=== PATIENT | male | born 1955 | race Caucasian/White ===

== ENCOUNTER → 2017-07-19 12:51 | Outpatient (CLI) | payer MEDICARE ==
[2014-09-07 12:55] VITALS: BMI 54.0
[~2017-07-19 12:51] MED LIST: AMBIEN10 MG PO; CIALIS5 MG PO; COREG 3.1253.125 MG PO; FEXOFENADINE H180 MG PO; FISH OIL 1,0001 CA1 PO; FLOMAX0.4 MG PO; HYDROCODONE-APA1 TAB PO; LASIX20 MG PO; LEVAQUIN500 MG PO; MOBIC7.5 MG PO; MULTI-DAY VITAM1 TAB PO; PRINIVIL20 MG PO; SINGULAIR10 MG PO; VITAMIN E400 UNI2 PO; ZANAFLEX4 MG PO
== END | disposition home or self-care (01) ==
LOC: D.RT 07-02 11:00
DX: R06.02 Shortness of breath (principal)

== ENCOUNTER 2018-09-09 16:14 | Inpatient (IN) | payer OTHER ==
[~2018-09-09] VITALS: Ht 188 cm; Wt 204.1 kg
[2018-09-09 17:09] LABS: BASOPHILS 0.2 % (0-2); EOSINOPHILS 2.9 % (0-7); HEMATOCRIT 44.1 % (42.0-54.0); HEMOGLOBIN 14.8 g/dL (13.5-17.5); IMMATURE GRANULOCYTES 0.2 % (0-5); LYMPHOCYTES 23.3 % (15-50); MCH 31.5 pg (26.0-34.0); MCHC 33.6 g/dL (31.0-37.0); MCV 93.8 fL (80.0-100.0); MEAN PLATELET VOLUME 9.7 fL (7.4-10.4); MONOCYTES 6.8 % (2-11); NEUTROPHILS 66.6 % (40-80); PLATELET COUNT 224 10x3/uL (130-400); RDW 16.2 % (11.5-14.5); WBC 5.9 10x3/uL (4.8-10.8)
[2018-09-09 17:18] LABS: INR 1.08 (0.85-1.17); PROTIME 13.6 SECONDS (11.6-15.0)
[2018-09-09 17:26] LABS: ALBUMIN 2.9 g/dL (3.4-5.0); ANION GAP 13.1 mmol/L (8-16); BILIRUBIN - TOTAL 0.96 mg/dL (0.2-1.3); CALCIUM 8.6 mg/dL (8.5-10.1); CARBON DIOXIDE 27.9 mmol/L (21.0-32.0); CREATININE - SERUM 1.1 mg/dL (0.6-1.3); PROTEIN - SERUM 6.8 g/dL (6.4-8.2)
[2018-09-09 21:28] LABS: CKMB 0.6 U/L (0.0-3.6)
[2018-09-09 22:06] VITALS: BP 141/59
[2018-09-10] MEDS ORDERED: BAYER CHEWABLE81 MG PO (00:04)
[2018-09-10 03:05] VITALS: BP 138/55
[2018-09-10 04:18] VITALS: BP 123/57
[2018-09-10 05:46] LABS: BASOPHILS 0 % (0-2); EOSINOPHILS 0.2 % (0-7); HEMATOCRIT 44.5 % (42.0-54.0); HEMOGLOBIN 14.7 g/dL (13.5-17.5); IMMATURE GRANULOCYTES 0.2 % (0-5); LYMPHOCYTES 9.3 % (15-50); MCH 31.3 pg (26.0-34.0); MCV 94.7 fL (80.0-100.0); MEAN PLATELET VOLUME 10.2 fL (7.4-10.4); MONOCYTES 0.5 % (2-11); NEUTROPHILS 89.8 % (40-80); PLATELET COUNT 214 10x3/uL (130-400); RDW 16.3 % (11.5-14.5); WBC 5.5 10x3/uL (4.8-10.8)
[2018-09-10 06:02] LABS: ALBUMIN 2.6 g/dL (3.4-5.0); ALKALINE PHOSPHATASE 50 U/L (46-116); ALT (SGPT) 66 U/L (10-68); BILIRUBIN - TOTAL 0.99 mg/dL (0.2-1.3); CALC OSMOLALITY 284 mosm/kg (275-300); CALCIUM 8.6 mg/dL (8.5-10.1); CHLORIDE - SERUM 106 mmol/L (98-107); PROTEIN - SERUM 6.5 g/dL (6.4-8.2); SODIUM 140 mmol/L (136-145); UREA NITROGEN 13 mg/dL (7-18); eGFR NON AFRICAN AMERICAN 80 mL/min (90-120)
[2018-09-10 06:07] LABS: GLUCOSE 203 mg/dL (74-106); POTASSIUM - SERUM 4.6 mmol/L (3.5-5.1)
[2018-09-10] MEDS ORDERED: NEURONTIN 300300 MG PO (08:08)
[2018-09-10] MEDS ORDERED: FLUTICASONE PRO16 GM NASAL (08:08)
[2018-09-10] MEDS ORDERED: TESSALON PERLE100 MG PO (08:09)
[2018-09-10] MEDS ORDERED: COMBIVENT RESPIM4 GM INH (08:09)
[2018-09-10] MEDS ORDERED: PROVENTIL/2.5 MG/3 M INH (08:10)
[2018-09-10] MEDS ORDERED: MIRALAX17 GM PO (08:31)
[2018-09-10] MEDS ORDERED: LOVENOX INJ100 MG/ML SC (12:26)
[2018-09-10] MEDS ORDERED: ZOSYN 3.3753.375 G1 IV (12:26)
[2018-09-10] MEDS ORDERED: VANCOMYCIN 1 GM/1 G1 IV (12:26)
[2018-09-10] MEDS ORDERED: MUCINEX600 MG PO (12:27)
[2018-09-10] MEDS ORDERED: FLORAJEN3 CAPS460 MG PO (12:27)
[2018-09-10] MEDS ORDERED: SOLU MEDROL IV (12:27)
[2018-09-10 13:14] VITALS: Ht 188 cm; Wt 204.1 kg
[2018-09-10 15:46] VITALS: BP 135/48
== END 2018-09-10 12:33 | disposition short-term general hospital (02) | DRG 393 ==
LOC: D.ER 16:14 → D.EDHOLD 23:53
PROVIDERS: Family Medicine
DX: K42.9 Umbilical hernia without obstruction or gangrene (principal); J18.9 Pneumonia, unspecified organism; J96.21 Acute and chronic respiratory failure with hypoxia; J90 Pleural effusion, not elsewhere classified; J44.0 Chronic obstructive pulmonary disease with (acute) lower respiratory infection; Z68.43 Body mass index [BMI] 50.0-59.9, adult; I10 Essential (primary) hypertension; Z99.81 Dependence on supplemental oxygen; N40.0 Benign prostatic hyperplasia without lower urinary tract symptoms; F32.9 Major depressive disorder, single episode, unspecified; F41.9 Anxiety disorder, unspecified; G47.33 Obstructive sleep apnea (adult) (pediatric); E66.01 Morbid (severe) obesity due to excess calories; Z87.891 Personal history of nicotine dependence

== ENCOUNTER 2020-05-30 12:07 | Inpatient (IN) | payer MEDICARE ==
[~2020-05-30] VITALS: Ht 190.5 cm; Wt 207.7 kg
[~2020-05-30 12:07] MED LIST changes: +BAYER CHEWABLE81 MG PO; +COMBIVENT RESPIM4 GM INH; +FLORAJEN3 CAPS460 MG PO; +FLUTICASONE PRO16 GM NASAL; +LOVENOX INJ100 MG/ML SC; +MIRALAX17 GM PO; +MUCINEX600 MG PO; +NEURONTIN 300300 MG PO; +PROVENTIL/2.5 MG/3 M INH; +SOLU MEDROL IV; +TESSALON PERLE100 MG PO; +VANCOMYCIN 1 GM/1 G1 IV; +ZOSYN 3.3753.375 G1 IV
[2020-05-30 12:35] LABS: BASOPHILS 0.3 % (0-2); EOSINOPHILS 5.2 % (0-7); HEMATOCRIT 41.1 % (42.0-54.0); HEMOGLOBIN 13.3 g/dL (13.5-17.5); IMMATURE GRANULOCYTES 0.3 % (0-5); LYMPHOCYTES 16.8 % (15-50); MCH 30.4 pg (26.0-34.0); MCHC 32.4 g/dL (31.0-37.0); MCV 94.1 fL (80.0-100.0); MEAN PLATELET VOLUME 9.1 fL (7.4-10.4); MONOCYTES 8.3 % (2-11); NEUTROPHILS 69.1 % (40-80); RBC 4.37 10x6/uL (4.20-6.10); RDW 15.2 % (11.5-14.5); WBC 6.9 10x3/uL (4.8-10.8)
--- NOTE | 2020-05-30 12:36 | NUR ---
ULTRASOUND IN ROOM NOW
[2020-05-30 12:37] LABS: PLATELET COUNT 316 10x3/uL (130-400)
[2020-05-30 12:42] LABS: CALC OSMOLALITY 279 mosm/kg (275-300); CARBON DIOXIDE 27.9 mmol/L (21.0-32.0); CHLORIDE - SERUM 104 mmol/L (98-107); POTASSIUM - SERUM 4.1 mmol/L (3.5-5.1); SODIUM 139 mmol/L (136-145); UREA NITROGEN 16 mg/dL (7-18); eGFR NON AFRICAN AMERICAN 80 mL/min (90-120)
[2020-05-30 12:46] LABS: GLUCOSE 111 mg/dL (74-106)
[2020-05-30 12:50] LABS: ALKALINE PHOSPHATASE 90 U/L (30-120); ALT (SGPT) 46 U/L (10-68); BILIRUBIN - TOTAL 0.75 mg/dL (0.2-1.3); PROTEIN - SERUM 7.2 g/dL (6.4-8.2)
[2020-05-30 13:10] LABS: CKMB 0.6 U/L (0.0-3.6); CREATINE KINASE 46 UL (21-232); PRO BNP 394 pg/mL (0-125); TROPONIN-I 0.017 ng/mL (0.000-0.060)
[2020-05-30 13:11] VITALS: BP 116/69
[2020-05-30 13:12] LABS: APTT 32.9 SECONDS (22.8-39.4); INR 1.04 (0.85-1.17); PROTIME 13.5 SECONDS (11.6-15.0)
--- NOTE | 2020-05-30 13:13 | NUR ---
ERP INFORMED OF ELEVATED D-DIMER OF 13.36.
[2020-05-30 13:31] VITALS: BP 136/54
--- NOTE | 2020-05-30 16:28 | NUR ---
Rehab prescreening Consult recieved and the chart has been reviewed. He is [facility] and will require a preauth for the inpatient rehab. He will need a PT and an OT eval for their review. He is a new admit from the ER this afternoon. Rehab will follow. Veena Pinedo RN Clinical Liaison, Rehab
--- NOTE | 2020-05-30 18:42 | NUR ---
REFUSED SCD'S. LEFT LOWER LEG DVT. BILATERAL CELLULITIS.
--- NOTE | 2020-05-30 19:00 | NUR ---
EVENING ROUNDS COMPLETE. PT SITTING UP IN BED. NO SIGNS OF DISTRESS. PT DENIES ANY NEEDS AT THIS TIME. PT C/O PAIN 06/20, MORPHINE WAS ALREADY GIVEN BY DAY SHIFT NURSE. TEACHING ON PAIN MANAGEMENT. AAOX4, CL IN REACH, BED IN LOWEST POSITION.
--- NOTE | 2020-05-30 20:00 | NUR ---
DR. ALVES NOTIFIED AND REVIEWED PATIENT'S BEHAVIOR AND ASSESSMENT RESULTS. PT. IS A LOW RISK PER DR. ALVES. HE STATED TO GIVE RESOURCES TO PT AT TIME OF DISCHARGE. NO FURTHER ORDERS AT THIS TIME. RESOURCES REVIEWED WITH PT. AND HE VERBALIZED. UNDERSTANDING.
[2020-05-30 21:32] VITALS: BP 136/64
[2020-05-31 00:30] VITALS: BP 141/70
[2020-05-31] MEDS ORDERED: XANAX0.5 MG PO (02:09)
[2020-05-31] MEDS ORDERED: ULTRAM50 MG PO (02:10)
[2020-05-31] MEDS ORDERED: METOPROLOL TART50 MG PO (02:11)
[2020-05-31 02:18] VITALS: BMI 57.3
[2020-05-31 04:00] VITALS: BP 172/94
[2020-05-31 06:15] LABS: BASOPHILS 0.3 % (0-2); EOSINOPHILS 6.8 % (0-7); HEMATOCRIT 38.1 % (42.0-54.0); IMMATURE GRANULOCYTES 0.2 % (0-5); LYMPHOCYTES 18.5 % (15-50); MCH 29.9 pg (26.0-34.0); MCHC 31.5 g/dL (31.0-37.0); MONOCYTES 7.4 % (2-11); NEUTROPHILS 66.8 % (40-80); PLATELET COUNT 298 10x3/uL (130-400); RBC 4.01 10x6/uL (4.20-6.10); RDW 15.4 % (11.5-14.5); WBC 6.1 10x3/uL (4.8-10.8)
[2020-05-31 07:08] LABS: ALBUMIN 2.7 g/dL (3.4-5.0); ALKALINE PHOSPHATASE 80 U/L (30-120); ALT (SGPT) 41 U/L (10-68); BILIRUBIN - TOTAL 0.82 mg/dL (0.2-1.3); CALC OSMOLALITY 279 mosm/kg (275-300); CALCIUM 8.7 mg/dL (8.5-10.1); CARBON DIOXIDE 29.5 mmol/L (21.0-32.0); CHLORIDE - SERUM 103 mmol/L (98-107); GLUCOSE 137 mg/dL (74-106); POTASSIUM - SERUM 4.1 mmol/L (3.5-5.1); PROTEIN - SERUM 6.6 g/dL (6.4-8.2); SODIUM 138 mmol/L (136-145); UREA NITROGEN 19 mg/dL (7-18); eGFR NON AFRICAN AMERICAN 80 mL/min (90-120)
--- NOTE | 2020-05-31 08:00 | NUR ---
REPORT RECIEVED. PT SITTING SEMI FOWLERS IN BED. RR EVEN AND UNLABORED ON RA. PT HAS A L WRIST PIV THAT IS SL. BED LOCKED AND IN LOWEST POSITION, CALL LIGHT WITHIN REACH. WILL CTM
[2020-05-31 09:28] VITALS: BP 136/82
[2020-05-31 12:09] VITALS: BP 118/73
[2020-05-31 13:44] VITALS: Ht 190.5 cm; Wt 207.7 kg
--- NOTE | 2020-05-31 16:51 | NUR ---
I have reviewed this patient and I concur with the Shift Assessment completed by the Licensed Practical Nurse today this shift.
[2020-05-31 22:34] VITALS: BP 171/40
[2020-06-01 01:59] VITALS: BP 159/87
[2020-06-01 06:22] LABS: BASOPHILS 0.3 % (0-2); EOSINOPHILS 5.3 % (0-7); HEMATOCRIT 38.5 % (42.0-54.0); HEMOGLOBIN 11.8 g/dL (13.5-17.5); IMMATURE GRANULOCYTES 0.3 % (0-5); LYMPHOCYTES 15.6 % (15-50); MCH 29.5 pg (26.0-34.0); MCHC 30.6 g/dL (31.0-37.0); MCV 96.3 fL (80.0-100.0); MEAN PLATELET VOLUME 9.7 fL (7.4-10.4); MONOCYTES 7.2 % (2-11); NEUTROPHILS 71.3 % (40-80); PLATELET COUNT 328 10x3/uL (130-400); RDW 15.6 % (11.5-14.5); WBC 7.3 10x3/uL (4.8-10.8)
[2020-06-01 06:51] LABS: CALC OSMOLALITY 284 mosm/kg (275-300); CALCIUM 8.6 mg/dL (8.5-10.1); CHLORIDE - SERUM 104 mmol/L (98-107); CREATININE - SERUM 0.9 mg/dL (0.6-1.3); GLUCOSE 117 mg/dL (74-106); POTASSIUM - SERUM 4.3 mmol/L (3.5-5.1); SODIUM 141 mmol/L (136-145); UREA NITROGEN 20 mg/dL (7-18); eGFR NON AFRICAN AMERICAN 90 mL/min (90-120)
[2020-06-01 07:04] VITALS: BP 171/76
[2020-06-01 10:14] VITALS: BP 124/76
[2020-06-01] MEDS ORDERED: VIBRAMYCIN 100100 MG PO (12:30)
[2020-06-01] MEDS ORDERED: ELIQUIS5 MG PO (12:33)
--- NOTE | 2020-06-01 13:28 | MORECARE ---
CASE MANAGEMENT DISCHARGE SUMMARY PATIENT: JACKY BARILLAS UNIT: [id number] ADM DATE: 05/30/20 AGE: 65 : 56 SEX: M ROOM/BED: D.2140 AUTHOR: MELODIE ZUÑIGA PHYSICIAN: REFERRING PHYSICIAN: GUNNER GOODEN MD DATE OF SERVICE: 06/01/20 Discharge Plan Patient Name: JACKY BARILLAS Facility: [facility]:[place] : 1955 Planned Disposition: Anticipated Discharge Date: Discharge Date: Expected LOS: Initial Reviewer: [email or web address] Initial Review Date: 05/30/2020 Generated: 06/01/20 2:27 pm DCPIA - Discharge Planning Initial Assessment Updated by [email or web address]: Ariela Madera on 06/01/20 1:21 pm * Is the patient Alert and Oriented? Yes * How many steps to enter\exit or inside your home? RAMP * PCP DR SMITH * Pharmacy [facility] * Preadmission Environment Home with Family * ADLs Partial Dependent * Partial ADLs (Assistance needed) Ambulation * Equipment Bedside Commode CPAP Oxygen Rolling Walker Shower Chair * List name and contact numbers for known caregivers / representatives who currently or will assist patient after discharge: CANDIS BROWN [phone] * Verbal permission to speak to the caregivers and representatives has been obtained from the patient. Yes * Community resources currently utilized Home Health * Additional services required to return to the preadmission environment? Yes * Can the patient safely return to the preadmission environment? Yes * Has this patient been hospitalized within the prior 30 days at any hospital? No External Providers External Provider: [facility] Next Contact Date: Service Request Date: Service Type: Resolution: Reviewer: Comments: External Provider: [facility] Next Contact Date: Service Request Date: Service Type: Resolution: Reviewer: Comments: Patient Name: JACKY BARILLAS Page [phone] at 1328 All edits/amendments must be made on the electronic document DICTATION DATE: 06/01/20 1327 NETWORK CONTRACT MANAGER: NICCI 06/01/20 1327 RPT#: [id number] DC DATE: STATUS: ADM IN [facility] [address] [place] [address] END OF REPORT
--- NOTE | 2020-06-01 13:58 | MORECARE ---
CASE MANAGEMENT DISCHARGE SUMMARY PATIENT: JACKY BARILLAS UNIT: [id number] ADM DATE: 05/30/20 AGE: 65 : 57 SEX: M ROOM/BED: D.2140 AUTHOR: ZARA,DOC PHYSICIAN: REFERRING PHYSICIAN: GUNNER GOODEN MD DATE OF SERVICE: 06/01/20 Discharge Plan Patient Name: JACKY BARILLAS [facility] : 1955 Planned Disposition: Anticipated Discharge Date: Discharge Date: Expected LOS: Initial Reviewer: [email or web address] Initial Review Date: 05/30/2020 Generated: 06/01/20 2:58 pm Comments DCP- Discharge Planning Updated by [email or web address]: Ariela Madera on 06/01/20 12:[address] Patient Name: JACKY BARILLAS Admission Status: ER Accout number: [id number] Admission Date: 05-30-2020 : 1955 Admission Diagnosis:ACUTE EMBOLISM AND THOMBOS UNSP DEEP VEINS OF R LOW EXT Attending: LUIS GOODEN Current LOS: 2 Anticipated DC Date: Planned Disposition: Primary Insurance: [facility] MEDICARE SOLUTIONS Discharge Planning Comments: CM met with patient to complete initial dc planning assessment. CM educated patient on the CM role and verbal consent given by patient to complete assessment. CM verified patient's address, phone number, and emergency contact phone numbers. Patient lives at home with his Candis and his dtr. At discharge patient plans to return home and feels this is a safe discharge. CM discussed availability of home health, rehab services, and medical equipment. Pt currently has [facility]. CM spoke with Daquan at [phone] for resumption of care. CM faxed HH order and current PT evaluations. Pt states he has the following DME: rollator, shower chair, bedside commode; he has cpap and home o2 form [employer]. Pt would like to have a bariatric shower chair. CM spoke with Meggan from [email or web address] per request at [phone] and faxed referral. OSMIN signed for [facility], [facility], and [facility]; declined rehab. DC IMM delivered, explained, signed by the patient, and placed in chart. Signed form also left with the patient. Patient denied known discharge needs at this time. Transportation provider at discharge will be his . CM will continue to follow and will assist as needed with dc plans/needs. Fabric Separator Operator: Ariela Madera DCPIA - Discharge Planning Initial Assessment Updated by [id number]: Ariela Madera on 06/01/20 1:21 pm * Is the patient Alert and Oriented? Yes * How many steps to enter\exit or inside your home? RAMP * PCP DR SMITH * Pharmacy [facility] * Preadmission Environment Home with Family * ADLs Partial Dependent * Partial ADLs (Assistance needed) Ambulation * Equipment Bedside Commode CPAP Oxygen Rolling Walker Shower Chair * List name and contact numbers for known caregivers / representatives who currently or will assist patient after discharge: CANDIS BROWN [phone] * Verbal permission to speak to the caregivers and representatives has been obtained from the patient. Yes * Community resources currently utilized Home Health * Additional services required to return to the preadmission environment? Yes * Can the patient safely return to the preadmission environment? Yes * Has this patient been hospitalized within the prior 30 days at any hospital? No Coverage Notice Reviewer: [email or web address] Randall Madera Notice Issued Date-Time: 06/01/2020 11:45 Notice Type: IM Discharge Notice Notice Delivered To: Patient Relationship to Patient: Portable Pinch Riveter Name: Delivery Method: HAND - Hand Delivered Ailyn Days: Prior Verbal Notification: Recipient Understood Notice: Yes Recipient Signature: Yes Med Rec Note Co-signed by Attending: Coverage Notice Comment: DC IMM delivered, explained, signed by the patient, and placed in chart. Signed form also left with the patient. Reviewer: [id number] - Ariela Madera Notice Issued Date-Time: 06/01/2020 11:45 Notice Type: Patient Choice Letter Notice Delivered To: Patient Relationship to Patient: Portable Pinch Riveter Name: Delivery Method: HAND - Hand Delivered Ailyn Days: Prior Verbal Notification: Recipient Understood Notice: Yes Recipient Signature: Yes Med Rec Note Co-signed by Attending: Coverage Notice Comment: osmin for [facility], and resume [facility]. declination for ip rehab Last DP export: 06/01/20 12:28 p Patient Name: JACKY BARILLAS Page 15352 at 1358 All edits/amendments must be made on the electronic document DICTATION DATE: 06/01/20 1358 PROFESSIONAL GOLF TOURNAMENT PLAYER: NICCI 06/01/20 1358 RPT#: [id number] MS DATE: STATUS: ADM IN [facility] [address] [place] [address] END OF REPORT
--- NOTE | 2020-06-01 14:12 | NUR ---
DC PAPERWORK GONE OVER AND SIGNED WITH PT. ALL QUESTIONS ANSWERED. PIV REMOVED CATH TIP FULLY INTACT. TELEMETRY REMOVED AND RETURNED TO DIVISIONAL MERCHANDISING MANAGER. PT AWAITING HIS RIDE TO PICK HIM UP.
--- NOTE | 2020-06-01 14:33 | NUR ---
I have reviewed this patient and I concur with the Shift Assessment completed by the Licensed Practical Nurse today this shift.
--- NOTE | 2020-06-02 09:35 | MORECARE ---
CASE MANAGEMENT DISCHARGE SUMMARY PATIENT: JACKY BARILLAS UNIT: [id number] ADM DATE: 05/30/20 AGE: 65 : 57 SEX: M ROOM/BED: D.2140 AUTHOR: ZARA,DOC PHYSICIAN: REFERRING PHYSICIAN: GUNNER GOODEN MD DATE OF SERVICE: 06/02/20 Discharge Plan Patient Name: JACKY BARILLAS [facility] [facility] 1955 Planned Disposition: Anticipated Discharge Date: Discharge Date: 06/01/2020 Expected LOS: Initial Reviewer: [email or web address] Initial Review Date: 05/30/2020 Generated: 06/02/20 10:34 am Comments DCP- Discharge Planning Updated by [id number]: Ariela Madera on 06/01/20 12:[address] Patient Name: JACKY BARILLAS Admission Status: ER Accout number: [id number] Admission Date: 05-30-2020 : 1955 Admission Diagnosis:ACUTE EMBOLISM AND THOMBOS UNSP DEEP VEINS OF R LOW EXT Attending: LUIS GOODEN Current LOS: 2 Anticipated DC Date: Planned Disposition: Primary Insurance: [facility] MEDICARE SOLUTIONS Discharge Planning Comments: CM met with patient to complete initial dc planning assessment. CM educated patient on the CM role and verbal consent given by patient to complete assessment. CM verified patient's address, phone number, and emergency contact phone numbers. Patient lives at home with his Candis and his dtr. At discharge patient plans to return home and feels this is a safe discharge. CM discussed availability of home health, rehab services, and medical equipment. Pt currently has [facility]. CM spoke with Daquan at [phone] for resumption of care. CM faxed HH order and current PT evaluations. Pt states he has the following DME: rollator, shower chair, bedside commode; he has cpap and home o2 form [employer]. Pt would like to have a bariatric shower chair. CM spoke with Meggan from [employer] per request at [phone] and faxed referral. OSMIN signed for [facility], [facility], and [facility]; declined rehab. DC IMM delivered, explained, signed by the patient, and placed in chart. Signed form also left with the patient. Patient denied known discharge needs at this time. Transportation provider at discharge will be his . CM will continue to follow and will assist as needed with dc plans/needs. Practicing Urologist: Ariela Madera DCPIA - Discharge Planning Initial Assessment Updated by [email or web address]: Ariela Madera on 06/01/20 1:21 pm * Is the patient Alert and Oriented? Yes * How many steps to enter\exit or inside your home? RAMP * PCP DR SMITH * Pharmacy [facility] * Preadmission Environment Home with Family * ADLs Partial Dependent * Partial ADLs (Assistance needed) Ambulation * Equipment Bedside Commode CPAP Oxygen Rolling Walker Shower Chair * List name and contact numbers for known caregivers / representatives who currently or will assist patient after discharge: CANDIS BROWN [phone] * Verbal permission to speak to the caregivers and representatives has been obtained from the patient. Yes * Community resources currently utilized Home Health * Additional services required to return to the preadmission environment? Yes * Can the patient safely return to the preadmission environment? Yes * Has this patient been hospitalized within the prior 30 days at any hospital? No Coverage Notice Reviewer: [id number] Randall Madera Notice Issued Date-Time: 06/01/2020 11:45 Notice Type: IM Discharge Notice Notice Delivered To: Patient Relationship to Patient: Angio Technologist Name: Delivery Method: HAND - Hand Delivered Ailyn Days: Prior Verbal Notification: Recipient Understood Notice: Yes Recipient Signature: Yes Med Rec Note Co-signed by Attending: Coverage Notice Comment: DC IMM delivered, explained, signed by the patient, and placed in chart. Signed form also left with the patient. Reviewer: [id number] - Ariela Madera Notice Issued Date-Time: 06/01/2020 11:45 Notice Type: Patient Choice Letter Notice Delivered To: Patient Relationship to Patient: Angio Technologist Name: Delivery Method: HAND - Hand Delivered Ailyn Days: Prior Verbal Notification: Recipient Understood Notice: Yes Recipient Signature: Yes Med Rec Note Co-signed by Attending: Coverage Notice Comment: osmin for [facility], [facility], and resume [facility]. declination for ip rehab Last DP export: 06/01/20 12:58 p Patient Name: JACKY BARILLAS Page [phone] at 0935 All edits/amendments must be made on the electronic document DICTATION DATE: 06/02/20933 INFORMATION SERVICES TECH: NICCI 06/02/2034 RPT#: [id number] DC DATE:06/01/20 STATUS: DIS IN [facility] [address] [place] [address] END OF REPORT
== END 2020-06-01 14:48 | disposition home health service (06) | DRG 300 ==
LOC: D.ER 12:07 → D.M2 14:30
PROVIDERS: Family Medicine; ADMIT Emergency Medicine; ATTEND Emergency Medicine
DX: I82.401 Acute embolism and thrombosis of unspecified deep veins of right lower extremity (principal); Z68.43 Body mass index [BMI] 50.0-59.9, adult; I10 Essential (primary) hypertension; J44.9 Chronic obstructive pulmonary disease, unspecified; G47.33 Obstructive sleep apnea (adult) (pediatric); E66.01 Morbid (severe) obesity due to excess calories; F41.8 Other specified anxiety disorders

== ENCOUNTER 2020-06-17 15:11 | Inpatient (IN) | payer MEDICARE ==
[~2020-06-17] VITALS: Ht 193 cm; Wt 219.4 kg
[~2020-06-17 15:11] MED LIST changes: +ELIQUIS5 MG PO; +METOPROLOL TART50 MG PO; +ULTRAM50 MG PO; +VIBRAMYCIN 100100 MG PO; +XANAX0.5 MG PO
[2020-06-17 16:29] VITALS: BP 167/47
--- NOTE | 2020-06-17 16:29 | NUR ---
C/O LLE PAIN. "I TAKE ULTRAM AT HOME LAST DOSE LAST PM" VITALIY HEWITT NOTIFIED
[2020-06-17 16:41] LABS: CALCIUM 8.5 mg/dL (8.5-10.1); CARBON DIOXIDE 30.7 mmol/L (21.0-32.0); CREATININE - SERUM 1.1 mg/dL (0.6-1.3); POTASSIUM - SERUM 4.7 mmol/L (3.5-5.1)
[2020-06-17 16:47] LABS: ALBUMIN 2.8 g/dL (3.4-5.0); BILIRUBIN - TOTAL 0.6 mg/dL (0.2-1.3); C-REACTIVE PROTEIN 3.7 mg/dL (0.0-0.9)
[2020-06-17 16:50] LABS: BASOPHILS 0.3 % (0-2); EOSINOPHILS 3.9 % (0-7); HEMATOCRIT 40.6 % (42.0-54.0); HEMOGLOBIN 12.9 g/dL (13.5-17.5); IMMATURE GRANULOCYTES 0.3 % (0-5); INR 1.15 (0.85-1.17); LYMPHOCYTES 15.8 % (15-50); MCH 29.7 pg (26.0-34.0); MCHC 31.8 g/dL (31.0-37.0); MCV 93.3 fL (80.0-100.0); NEUTROPHILS 73.7 % (40-80); PLATELET COUNT 344 10x3/uL (130-400); PROTIME 14.6 SECONDS (11.6-15.0); RBC 4.35 10x6/uL (4.20-6.10); RDW 15.9 % (11.5-14.5); WBC 6.6 10x3/uL (4.8-10.8)
[2020-06-17 16:51] LABS: APTT 36.9 SECONDS (22.8-39.4)
--- NOTE | 2020-06-17 16:57 | NUR ---
CRITICAL LAB: D-DIMER 3.55 KASH HAIR APRN NOTIFIED.
[2020-06-17 17:02] LABS: D-DIMER-QUANTITATIVE 3.55 ug/mLFEU (0.20-0.54)
--- NOTE | 2020-06-17 17:24 | NUR ---
US TECH AT BS
[2020-06-17 17:51] VITALS: BP 119/42
--- NOTE | 2020-06-17 19:06 | NUR ---
REPORT TO NEWTON LAKHANI
[2020-06-17 19:35] LABS: % SATURATION 17 % (15-55); IRON 52 ug/dl (35-150); TOTAL IRON BIND CAPACITY 294 ug/dl (260-445); UNSAT IRON BIND CAPACITY 242 ug/dl (150-375)
[2020-06-17 20:05] LABS: CKMB 0.5 U/L (0.0-3.6); CREATINE KINASE 44 UL (21-232); TROPONIN-I 0.027 ng/mL (0.000-0.060)
[2020-06-17 20:41] LABS: BILIRUBIN NEGATIVE (NEGATIVE); GLUCOSE NEGATIVE (NEGATIVE); KETONE NEGATIVE (NEGATIVE); NITRITE NEGATIVE (NEGATIVE); UROBILINOGEN NORMAL (NORMAL)
--- NOTE | 2020-06-18 00:42 | NUR ---
PT ON CL. ASSISTED PT INTO BED, ADMINISTERED PRN ANXIETY MEDICATION AND ASSISTED PT WITH CPAP. NO OTHER NEEDS AT THIS TIME. CONTINUE WITH PLAN OF CARE
[2020-06-18 00:45] VITALS: BP 119/74
[2020-06-18 01:46] LABS: BASOPHILS 0.2 % (0-2); EOSINOPHILS 3.8 % (0-7); HEMATOCRIT 38.8 % (42.0-54.0); HEMOGLOBIN 12.3 g/dL (13.5-17.5); IMMATURE GRANULOCYTES 0.2 % (0-5); LYMPHOCYTES 13.7 % (15-50); MCH 29.9 pg (26.0-34.0); MCHC 31.7 g/dL (31.0-37.0); MCV 94.2 fL (80.0-100.0); MEAN PLATELET VOLUME 8.8 fL (7.4-10.4); MONOCYTES 6.3 % (2-11); NEUTROPHILS 75.8 % (40-80); PLATELET COUNT 333 10x3/uL (130-400); RBC 4.12 10x6/uL (4.20-6.10); RDW 16.1 % (11.5-14.5); WBC 8.5 10x3/uL (4.8-10.8)
[2020-06-18 02:06] LABS: ALBUMIN 2.6 g/dL (3.4-5.0); ALKALINE PHOSPHATASE 67 U/L (30-120); ALT (SGPT) 40 U/L (10-68); BILIRUBIN - TOTAL 0.69 mg/dL (0.2-1.3); CALC OSMOLALITY 286 mosm/kg (275-300); CALCIUM 8.2 mg/dL (8.5-10.1); CARBON DIOXIDE 31.3 mmol/L (21.0-32.0); CHLORIDE - SERUM 104 mmol/L (98-107); CKMB 0.6 U/L (0.0-3.6); CREATINE KINASE 37 UL (21-232); CREATININE - SERUM 1.2 mg/dL (0.6-1.3); GLUCOSE 140 mg/dL (74-106); PROTEIN - SERUM 6.7 g/dL (6.4-8.2); SODIUM 141 mmol/L (136-145); TROPONIN-I 0.022 ng/mL (0.000-0.060); UREA NITROGEN 24 mg/dL (7-18); eGFR NON AFRICAN AMERICAN 65 mL/min (90-120)
[2020-06-18 02:13] VITALS: BMI 53.6
[2020-06-18 03:21] LABS: INR 1.15 (0.85-1.17); PROTIME 14.6 SECONDS (11.6-15.0)
--- NOTE | 2020-06-18 03:29 | NUR ---
PT ON CL STATES THAT HE NEEDS TO HAVE A BSC AND BETTER BED AND THAT BED IS NOT COMFORTABLE, EXPLAINED TO PT THAT WE ARE LOOKING FOR A BSC THAT IS SUITABLE FOR HIS SIZE AND FAR BED THIS IS WHAT WE HAVE. PT STATES HE CAN NOT GET UP TO WALK TO RESTROOM AND PREFERS BSC. NO OTHER NEEDS AT THIS TIME. CL IN REACH, CONTINUE WITH PLAN OF CARE
--- NOTE | 2020-06-18 05:29 | NUR ---
PT IV IN LEFT UPPER ARM BLEEDING AND PT STATED HURTS, REMOVED IV AND REITED TO PT LEFT WRIST AREA, LOCATION OF IV IS POSITIONAL PT ASKED FOR IV TO BE REMOVED AND RESITED AGAIN. ASKED ANOTHER NURSE TO RESITE IV FOR ME. CONTINUE WITH PLAN OF CARE
[2020-06-18 09:13] LABS: CKMB 0.4 U/L (0.0-3.6); CREATINE KINASE 42 UL (21-232); TROPONIN-I 0.028 ng/mL (0.000-0.060)
[2020-06-18 09:49] VITALS: BP 138/65
--- NOTE | 2020-06-18 10:08 | NUR ---
PT ALERT X 4. BREATH SOUNDS CLEAR BILAT, SHALLOW, 2L PER NC. +1 EDEMA TO BUE. IV TO LEFT AC, SALINE LOCKED. IV TO LEFT WRIST, PATENT, DRESSING CDI. +3 EDEMA TO BLE, WEEPING. LEFT LEG ELEVATED PER PT REQUEST. BED LOW, CALL LIGHT IN REACH. NO OTHER NEEDS AT THIS TIME.
[2020-06-18 12:26] LABS: INR 1.09 (0.85-1.17); PROTIME 14.1 SECONDS (11.6-15.0)
[2020-06-18 12:48] LABS: HEMATOCRIT 37.9 % (42.0-54.0); HEMOGLOBIN 11.9 g/dL (13.5-17.5); MCH 29.6 pg (26.0-34.0); MCHC 31.4 g/dL (31.0-37.0); MCV 94.3 fL (80.0-100.0); MEAN PLATELET VOLUME 9.5 fL (7.4-10.4); RBC 4.02 10x6/uL (4.20-6.10); RDW 16.1 % (11.5-14.5); WBC 6.9 10x3/uL (4.8-10.8)
[2020-06-18 13:58] VITALS: BP 134/49
[2020-06-18 18:11] VITALS: BP 136/57
--- NOTE | 2020-06-18 19:53 | NUR ---
ALERT & ORIENTED. PT HAD LARGE FORMED BROWN STOOL. PT HAD A FEW DROPS OF BRIGHT RED BLOOD FROM RECTUM ON FLOOR IN FRONT OF BSC. PT STATED HE HAD TO STRAIN FOR BM. TOOK SAMPLE TO LAB FOR OCCULT BLOOD ORDERED. ASSESSMENT COMPLETE PER FLOWSHEET. PT SITTING UP IN CHAIR DRINKING ORANGE JUICE. MORTGAGE LOAN PROCESSOR FOR PAIN CONTROL. NO OTHER NEEDS. WILL REASSESS AND CONTINUE TO MONITOR.
[2020-06-18 20:56] VITALS: BP 137/42
--- NOTE | 2020-06-19 | NUR ---
PT HAS HAD 3 MORE LARGE BM'S. LAST TWO STOOLS HAVE BEEN SOFT. HAVE ASSISTED PT WITH WIPING, NO MORE BLOOD HAS BEEN VISUALIZED SINCE FIRST BM WHICH WAS LARGE AND HARD TO PASS. PT SITTING UP CHAIR. STATES HE CAN'T GET COMFORTABLE IN BED. NO OTHER NEEDS. WILL CONTINUE TO MONITOR.
[2020-06-19 00:01] VITALS: BP 128/68
[2020-06-19 06:50] LABS: BASOPHILS 0.3 % (0-2); EOSINOPHILS 4.3 % (0-7); HEMATOCRIT 36.5 % (42.0-54.0); HEMOGLOBIN 11.5 g/dL (13.5-17.5); IMMATURE GRANULOCYTES 0.3 % (0-5); LYMPHOCYTES 16.2 % (15-50); MCH 29.5 pg (26.0-34.0); MCHC 31.5 g/dL (31.0-37.0); MCV 93.6 fL (80.0-100.0); MEAN PLATELET VOLUME 10.7 fL (7.4-10.4); MONOCYTES 7.8 % (2-11); NEUTROPHILS 71.1 % (40-80); RDW 16.2 % (11.5-14.5); WBC 6.9 10x3/uL (4.8-10.8)
[2020-06-19 06:53] LABS: PLATELET COUNT 239 10x3/uL (130-400)
[2020-06-19 06:58] LABS: ALBUMIN 2.5 g/dL (3.4-5.0); ANION GAP 8.1 mmol/L (8-16); BILIRUBIN - TOTAL 0.53 mg/dL (0.2-1.3); CALCIUM 8.1 mg/dL (8.5-10.1); CREATININE - SERUM 1.1 mg/dL (0.6-1.3); POTASSIUM - SERUM 4.1 mmol/L (3.5-5.1); PROTEIN - SERUM 6.4 g/dL (6.4-8.2)
[2020-06-19 08:43] VITALS: BP 95/62
--- NOTE | 2020-06-19 09:00 | NUR ---
ASSESSMENT PER FLOW SHEET. PATIENT IS WITHOUT DISTRESS.CALL LIGHT IN REACH
[2020-06-19 13:17] VITALS: BP 118/40
[2020-06-19 22:00] VITALS: BP 143/61
[2020-06-19 22:01] VITALS: BP 143/61
[2020-06-20 03:55] VITALS: BP 121/39
[2020-06-20 05:12] LABS: BASOPHILS 0.1 % (0-2); HEMATOCRIT 34.8 % (42.0-54.0); HEMOGLOBIN 10.8 g/dL (13.5-17.5); IMMATURE GRANULOCYTES 0.3 % (0-5); LYMPHOCYTES 15.7 % (15-50); MCH 28.9 pg (26.0-34.0); MEAN PLATELET VOLUME 9.6 fL (7.4-10.4); MONOCYTES 8.3 % (2-11); NEUTROPHILS 70.6 % (40-80); RBC 3.74 10x6/uL (4.20-6.10); RDW 16.3 % (11.5-14.5); WBC 6.7 10x3/uL (4.8-10.8)
[2020-06-20 05:26] LABS: PLATELET COUNT 306 10x3/uL (130-400)
[2020-06-20 05:45] LABS: ALBUMIN 2.4 g/dL (3.4-5.0); ALKALINE PHOSPHATASE 56 U/L (30-120); ALT (SGPT) 37 U/L (10-68); CALC OSMOLALITY 276 mosm/kg (275-300); CALCIUM 8.3 mg/dL (8.5-10.1); CARBON DIOXIDE 27.5 mmol/L (21.0-32.0); CHLORIDE - SERUM 104 mmol/L (98-107); CREATININE - SERUM 0.9 mg/dL (0.6-1.3); GLUCOSE 112 mg/dL (74-106); POTASSIUM - SERUM 4.1 mmol/L (3.5-5.1); PROTEIN - SERUM 6.2 g/dL (6.4-8.2); SODIUM 137 mmol/L (136-145); eGFR NON AFRICAN AMERICAN 90 mL/min (90-120)
[2020-06-20 05:58] LABS: UREA NITROGEN 18 mg/dL (7-18)
--- NOTE | 2020-06-20 08:50 | NUR ---
PATIENT POLITICAL CONSULTANT LIGHT. UP TO BEDSIDE COMMODE THEN SITTING UP IN CHAIR. EATING BREAKFAST. DENIES PAIN OR NEEDS. WILL CONTINUE TO MONITOR.
[2020-06-20 09:10] VITALS: BP 123/47
[2020-06-20 11:54] VITALS: BP 129/44
[2020-06-20 13:02] VITALS: Ht 193 cm; Wt 219.4 kg
[2020-06-20 15:29] LABS: INR 1.07 (0.85-1.17); PROTIME 13.9 SECONDS (11.6-15.0)
[2020-06-20 16:22] VITALS: BP 137/45
--- NOTE | 2020-06-20 18:41 | NUR ---
FOUND ASLEP WITHOUT CPAP ON. HYPERSOMNOLENT AND DIFFICULT STAYING AWAKE FOR TREATMENTS. PLACED ON HOME CPAP AND COACHED TO KEEP IT ON UNLESS AWAKE UP IN CHAIR.
[2020-06-20 20:00] VITALS: BP 114/57
--- NOTE | 2020-06-21 03:56 | NUR ---
ON ENTERING UNIT PT. SITTING ON SIDE OF BED CALLING FOR HELP. STATES ITS TOO HOT IN HERE.THERMOSTAT ON 60. FAN BLOWING DIRECTLY ON PATIENT. LGE AMT. SWELLING AND BROWNISH DISCOLORATION OBSERED LOWER EXT. BILAT.OTHERWISE NEUROVASCULAR STATUS WNL. WILL CONTINUE TO MONITOR FOR ANY CHGES. AND FOLLOW CURRENT PLAN OF CARE.USES CALL [facility] ABUSIVELY.
[2020-06-21 04:00] VITALS: BP 111/44
[2020-06-21 05:39] LABS: INR 1.13 (0.85-1.17); PROTIME 14.4 SECONDS (11.6-15.0)
[2020-06-21 05:52] LABS: ALBUMIN 2.4 g/dL (3.4-5.0); ALKALINE PHOSPHATASE 53 U/L (30-120); ALT (SGPT) 40 U/L (10-68); BILIRUBIN - TOTAL 0.72 mg/dL (0.2-1.3); CALC OSMOLALITY 279 mosm/kg (275-300); CALCIUM 7.9 mg/dL (8.5-10.1); CARBON DIOXIDE 28.6 mmol/L (21.0-32.0); CHLORIDE - SERUM 106 mmol/L (98-107); CREATININE - SERUM 0.9 mg/dL (0.6-1.3); GLUCOSE 96 mg/dL (74-106); MAGNESIUM - SERUM 1.9 mg/dL (1.8-2.4); POTASSIUM - SERUM 4.2 mmol/L (3.5-5.1); SODIUM 139 mmol/L (136-145); UREA NITROGEN 18 mg/dL (7-18); eGFR NON AFRICAN AMERICAN 90 mL/min (90-120)
[2020-06-21 05:54] LABS: BASOPHILS 0.3 % (0-2); EOSINOPHILS 5.1 % (0-7); HEMATOCRIT 34.6 % (42.0-54.0); HEMOGLOBIN 10.8 g/dL (13.5-17.5); IMMATURE GRANULOCYTES 0.3 % (0-5); LYMPHOCYTES 17.4 % (15-50); MCH 28.7 pg (26.0-34.0); MCHC 31.2 g/dL (31.0-37.0); MEAN PLATELET VOLUME 10.1 fL (7.4-10.4); MONOCYTES 7.6 % (2-11); NEUTROPHILS 69.3 % (40-80); PLATELET COUNT 261 10x3/uL (130-400); RBC 3.76 10x6/uL (4.20-6.10); RDW 16.2 % (11.5-14.5); WBC 6.1 10x3/uL (4.8-10.8)
--- NOTE | 2020-06-21 07:50 | NUR ---
PATIENT UP TO CHAIR FOR BREAKFAST. DENIES PAIN OR NEEDS. CALL LIGHT IN REACH, ROOM FREE FROM CLUTTER. WILL CONTINUE TO MONITOR.
[2020-06-21 08:00] VITALS: BP 132/5; BP 132/55
--- NOTE | 2020-06-21 08:24 | NUR ---
Nutrition consult: Provided pt with Coumadin diet education. Pt given Coumadin diet handout and all questions answered.
[2020-06-21] MEDS ORDERED: FOLIC ACID1 MG PO (09:59)
[2020-06-21] MEDS ORDERED: Coumadin [PBKC] PO (10:00)
[2020-06-21] MEDS ORDERED: LOVENOX INJ100 MG/ML SC (10:00)
[2020-06-21 10:12] LABS: IMMUNOGLOBULIN A 393 mg/dL (61-437); IMMUNOGLOBULIN G 1170 mg/dL (603-1613)
--- NOTE | 2020-06-21 12:27 | MORECARE ---
CASE MANAGEMENT DISCHARGE SUMMARY PATIENT: JACKY BARILLAS UNIT: [id number] ADM DATE: 06/17/20 AGE: 65 : 57 SEX: M ROOM/BED: D.2201 AUTHOR: MELODIE ZUÑIGA PHYSICIAN: REFERRING PHYSICIAN: LORI CARDOZO MD DATE OF SERVICE: 06/21/20 Discharge Plan Patient Name: JACKY BARILLAS Facility: [facility]:[place] : 1955 Planned Disposition: Home with Home Health Anticipated Discharge Date: Discharge Date: Expected LOS: Initial Reviewer: [email or web address] Initial Review Date: 06/17/2020 Generated: 06/21/20 1:26 pm DCPIA - Discharge Planning Initial Assessment Updated by [email or web address]: Yi Fajardo on 06/21/20 12:23 pm * Is the patient Alert and Oriented? Yes * How many steps to enter\exit or inside your home? RAMP * PCP SMITH * [facility] * Preadmission Environment Home with Family * ADLs Partial Dependent * Partial ADLs (Assistance needed) Ambulation Bathing * Equipment Bedside Commode CPAP Grab Bars Nebulizer Other Oxygen Rolling Walker Shower Chair Walker * Other Equipment O2 CONCENTRATOR PORTABLE O2 * List name and contact numbers for known caregivers / representatives who currently or will assist patient after discharge: CANDIS () [phone] * Verbal permission to speak to the caregivers and representatives has been obtained from the patient. N/A * Community resources currently utilized Home Health * Please name any agencies selected above. [facility] * Additional services required to return to the preadmission environment? Yes * Can the patient safely return to the preadmission environment? Yes * Has this patient been hospitalized within the prior 30 days at any hospital? Yes Patient Name: JACKY BARILLAS Page [phone] at 1227 All edits/amendments must be made on the electronic document DICTATION DATE: 06/21/20 1226 TREATING ENGINEER: NICCI 06/21/20 1226 RPT#: [id number] DC DATE: STATUS: ADM IN [facility] [address] [place] [address] END OF REPORT
--- NOTE | 2020-06-21 12:36 | MORECARE ---
CASE MANAGEMENT DISCHARGE SUMMARY PATIENT: JACKY BARILLAS UNIT: [id number] ADM DATE: 06/17/20 AGE: 65 : 57 SEX: M ROOM/BED: D.2201 AUTHOR: MELODIE ZUÑIGA PHYSICIAN: REFERRING PHYSICIAN: LORI CARDOZO MD DATE OF SERVICE: 06/21/20 Discharge Plan Patient Name: JACKY BARILLAS Facility: [facility]:[place] : 1955 Planned Disposition: Home with Home Health Anticipated Discharge Date: Discharge Date: Expected LOS: Initial Reviewer: [email or web address] Initial Review Date: 06/17/2020 Generated: 06/21/20 1:35 pm Comments DCP- Discharge Planning Updated by [email or web address]: Yi Fajardo on 06/21/20 11:[address] Patient Name: JACKY BARILLAS Admission Status: ER Accout number: [id number] Admission Date: 06-17-2020 : 1955 Admission Diagnosis: Attending: EDGARDO Current LOS: 4 Anticipated DC Date: Planned Disposition: Home with Home Health Primary Insurance: [facility] MEDICARE SOLUTIONS Discharge Planning Comments: CM met with patient to complete initial dc planning assessment. CM educated patient on the CM role and verbal consent given by patient to complete assessment. Patient lives at home with his where she helps him with whatever he needs may be. At discharge patient plans to return home and feels this is a safe discharge. CM discussed availability of home health, rehab services, and medical equipment. He is current with [facility]. Per his he [facility]. He states that he has CPAP, portable O2, O2 concentrator, nebulizer ([facility]). He has shower chair, BSC x 2, shower chair, walker. He will need a sharps container, I will notify [facility] of this. IMM serve and explained. SUKHI signed for [employer] and [facility]. 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 Patient denied known discharge needs at this time. CM will continue to follow and will assist as needed with dc plans/needs. Batch Weigher: Yi Fajardo DCPIA - Discharge Planning Initial Assessment Updated by [email or web address]: Yi Fajardo on 06/21/20 12:23 pm * Is the patient Alert and Oriented? Yes * How many steps to enter\exit or inside your home? RAMP * PCP SARAH * [facility]acy [facility] * Preadmission Environment Home with Family * ADLs Partial Dependent * Partial ADLs (Assistance needed) Ambulation Bathing * Equipment Bedside Commode CPAP Grab Bars Nebulizer Other Oxygen Rolling Walker Shower Chair Walker * Other Equipment O2 CONCENTRATOR PORTABLE O2 * List name and contact numbers for known caregivers / representatives who currently or will assist patient after discharge: CANDIS () [phone] * Verbal permission to speak to the caregivers and representatives has been obtained from the patient. N/A * Community resources currently utilized Home Health * Please name any agencies selected above. [facility] * Additional services required to return to the preadmission environment? Yes * Can the patient safely return to the preadmission environment? Yes * Has this patient been hospitalized within the prior 30 days at any hospital? Yes External Providers [facility] Next Contact Date: Service Request Date: Service Type: Resolution: Reviewer: Comments: Last DP export: 06/21/20 11:27 a Patient Name: JACKY BARILLAS Page 24493 at 1236 All edits/amendments must be made on the electronic document DICTATION DATE: 06/21/20 1235 MEAT PRESS OPERATOR: NICCI 06/21/20 1235 RPT#: [id number] DC DATE: STATUS: ADM IN [facility] [address] [place] [address] END OF REPORT
[2020-06-21 13:11] LABS: ACLA - IGG AB <9 GPL U/mL (0-14); ACLA - IGM AB <9 MPL U/mL (0-12)
--- NOTE | 2020-06-21 13:20 | NUR ---
DISCHARGE TEACHING COMPLETE. NO FURTHER QUESTIONS. LEFT AC IV CATH REMOVED. CATH TIP INTACT. WAITING ON RIDE TO GET HERE.
--- NOTE | 2020-06-21 14:30 | NUR ---
PATIENT LEFT UNIT VIA WHEELCHAIR TO HOME. ALL BELONGINGS TAKEN.
--- NOTE | 2020-06-21 14:41 | NUR ---
IV THERAPY REMOVED FROM LEFT AC WITH TIP INTACT.
--- NOTE | 2020-06-21 16:08 | MORECARE ---
CASE MANAGEMENT DISCHARGE SUMMARY PATIENT: JACKY BARILLAS UNIT: [id number] ADM DATE: 06/17/20 AGE: 65 : 57 SEX: M ROOM/BED: D.2201 AUTHOR: ZARADOC PHYSICIAN: REFERRING PHYSICIAN: LORI CARDOZO MD DATE OF SERVICE: 06/21/20 Discharge Plan Patient Name: JACKY BARILLAS Facility: [facility]:[place] : 1955 Planned Disposition: Home with Home Health Anticipated Discharge Date: Discharge Date: 06/21/2020 Expected LOS: Initial Reviewer: [id number] Initial Review Date: 06/17/2020 Generated: 06/21/20 5:08 pm Comments DCP- Discharge Planning Updated by [id number]: Yi Fajardo on 06/21/20 11:[address] Patient Name: JACKY BARILLAS Admission Status: ER Accout number: [id number] Admission Date: 06-17-2020 : 1955 Admission Diagnosis: Attending: EDGARDO Current LOS: 4 Anticipated DC Date: Planned Disposition: Home with Home Health Primary Insurance: [facility] MEDICARE SOLUTIONS Discharge Planning Comments: CM met with patient to complete initial dc planning assessment. CM educated patient on the CM role and verbal consent given by patient to complete assessment. Patient lives at home with his where she helps him with whatever he needs may be. At discharge patient plans to return home and feels this is a safe discharge. CM discussed availability of home health, rehab services, and medical equipment. He is current with [facility]. Per his he [facility] all the [facility] could [facility]. He states that he has CPAP, portable O2, O2 concentrator, nebulizer (rotec). He has shower chair, BSC x 2, shower chair, walker. He will need a sharps container, I will notify [facility] of this. IMM serve and explained. SUKHI signed for [employer] and [employer]. 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 Patient denied known discharge needs at this time. CM will continue to follow and will assist as needed with dc plans/needs. Sign Painter: Yi Fajardo DCPIA - Discharge Planning Initial Assessment Updated by [email or web address]: Yi Fajardo on 06/21/20 12:23 pm * Is the patient Alert and Oriented? Yes * How many steps to enter\exit or inside your home? RAMP * PCP SARAH * Pharm[facility] * Preadmission Environment Home with Family * ADLs Partial Dependent * Partial ADLs (Assistance needed) Ambulation Bathing * Equipment Bedside Commode CPAP Grab Bars Nebulizer Other Oxygen Rolling Walker Shower Chair Walker * Other Equipment O2 CONCENTRATOR PORTABLE O2 * List name and contact numbers for known caregivers / representatives who currently or will assist patient after discharge: CANDIS () [phone] * Verbal permission to speak to the caregivers and representatives has been obtained from the patient. N/A * Community resources currently utilized Home Health * Please name any agencies selected above. [facility] * Additional services required to return to the preadmission environment? Yes * Can the patient safely return to the preadmission environment? Yes * Has this patient been hospitalized within the prior 30 days at any hospital? Yes Coverage Notice Reviewer: [id number] Randall Fajardo Notice Issued Date-Time: 06/21/2020 12:15 Notice Type: IM Discharge Notice Notice Delivered To: Family Member Relationship to Patient: Spouse Information Resources Manager Name: CANDIS Delivery Method: HAND - Hand Delivered Ailyn Days: Prior Verbal Notification: Recipient Understood Notice: Yes Recipient Signature: Yes Med Rec Note Co-signed by Attending: Coverage Notice Comment: IMM Reviewer: [id number] Randall Fajardo Notice Issued Date-Time: 06/21/2020 12:15 Notice Type: Patient Choice Letter Notice Delivered To: Family Member Relationship to Patient: Spouse Information Resources Manager Name: CANDIS Delivery Method: HAND - Hand Delivered Ailyn Days: Prior Verbal Notification: Recipient Understood Notice: Yes Recipient Signature: Yes Med Rec Note Co-signed by Attending: Coverage Notice Comment: SUKHI [facility] Last DP export: 06/21/20 11:36 a Patient Name: JACKY BARILLAS Page [id number] at 1608 All edits/amendments must be made on the electronic document DICTATION DATE: 06/21/208 COFFEE URN ATTENDANT: NICCI 06/21/20 1608 RPT#: [id number] DC DATE:06/21/20 STATUS: DIS IN [facility] [address] [place] [address] END OF REPORT
[2020-06-23 03:08] LABS: LUPUS - INTERPRETATION Comment: (()); LUPUS - THROMBIN TIME 19.9 sec (0.0-23.0); LUPUS - dRVVT 35.5 sec (0.0-47.0); PROTEIN S - FREE 112 % (57-157); PROTEIN S - TOTAL 101 % (60-150); PTT-LA 47.7 sec (0.0-51.9)
[2020-06-23 13:11] LABS: PROTEIN C - ANTIGEN 85 % (60-150); PROTEIN C - FUNCTIONAL 90 % (73-180); PROTEIN S - FREE 86 % (57-157); PROTEIN S - FUNCTIONAL 79 % (63-140); PROTEIN S - TOTAL 93 % (60-150)
[2020-06-23 15:12] LABS: FACTOR II DNA ANALYSIS Negative (())
[2020-06-23 18:08] LABS: IMMUNOGLOBULIN E 40 IU/mL (6-495)
== END 2020-06-21 14:30 | disposition home health service (06) | DRG 299 ==
LOC: D.ER 15:11 → D.MS 19:02
PROVIDERS: Emergency Medicine; Family Medicine; Internal Medicine Hematology & Oncology; Internal Medicine Pulmonary Disease; ADMIT Family Medicine; ATTEND Family Medicine
DX: I82.402 Acute embolism and thrombosis of unspecified deep veins of left lower extremity (principal); I26.99 Other pulmonary embolism without acute cor pulmonale; L97.129 Non-pressure chronic ulcer of left thigh with unspecified severity; J96.11 Chronic respiratory failure with hypoxia; J81.1 Chronic pulmonary edema; Z68.43 Body mass index [BMI] 50.0-59.9, adult; M48.56XA Collapsed vertebra, not elsewhere classified, lumbar region, initial encounter for fracture; D64.9 Anemia, unspecified; R20.2 Paresthesia of skin; I10 Essential (primary) hypertension; I25.10 Atherosclerotic heart disease of native coronary artery without angina pectoris; J44.9 Chronic obstructive pulmonary disease, unspecified; K21.9 Gastro-esophageal reflux disease without esophagitis; K59.00 Constipation, unspecified; F41.8 Other specified anxiety disorders; N40.0 Benign prostatic hyperplasia without lower urinary tract symptoms; M81.0 Age-related osteoporosis without current pathological fracture; M19.90 Unspecified osteoarthritis, unspecified site; G47.33 Obstructive sleep apnea (adult) (pediatric); E66.01 Morbid (severe) obesity due to excess calories; I51.7 Cardiomegaly

== ENCOUNTER → 2020-06-22 15:00 | Outpatient (CLI) | payer MEDICARE ==
[2020-06-20 13:02] VITALS: BMI 58.8
[~2020-06-22 15:00] MED LIST changes: +Coumadin [PBKC] PO; +FOLIC ACID1 MG PO
[2020-06-23 01:31] LABS: INR 1.16 (0.85-1.17); PROTIME 14.7 SECONDS (11.6-15.0)
== END | disposition home or self-care (01) ==
LOC: D.LABREF 15:00
PROVIDERS: ATTEND Nurse Practitioner Family
DX: I82.401 Acute embolism and thrombosis of unspecified deep veins of right lower extremity (principal)

== ENCOUNTER → 2020-07-04 15:28 | Outpatient (CLI) | payer MEDICARE ==
[2020-06-20 13:02] VITALS: BMI 58.8
[2020-07-04 17:43] LABS: INR 2.64 (0.85-1.17); PROTIME 27.7 SECONDS (11.6-15.0)
== END | disposition home or self-care (01) ==
LOC: D.LABREF 15:28
PROVIDERS: ATTEND Family Medicine
DX: I82.409 Acute embolism and thrombosis of unspecified deep veins of unspecified lower extremity (principal); Z79.01 Long term (current) use of anticoagulants

== ENCOUNTER → 2020-08-02 19:13 | Outpatient (CLI) | payer MEDICARE ==
[2020-06-20 13:02] VITALS: BMI 58.8
[2020-08-02 20:49] LABS: BASOPHILS 0.2 % (0-2); EOSINOPHILS 3.6 % (0-7); HEMATOCRIT 38.9 % (42.0-54.0); HEMOGLOBIN 12.1 g/dL (13.5-17.5); IMMATURE GRANULOCYTES 0.2 % (0-5); LYMPHOCYTES 22.1 % (15-50); MCH 28.5 pg (26.0-34.0); MCHC 31.1 g/dL (31.0-37.0); MCV 91.5 fL (80.0-100.0); MEAN PLATELET VOLUME 9.8 fL (7.4-10.4); MONOCYTES 6.6 % (2-11); NEUTROPHILS 67.3 % (40-80); PLATELET COUNT 252 10x3/uL (130-400); RBC 4.25 10x6/uL (4.20-6.10); RDW 16.7 % (11.5-14.5)
[2020-08-02 21:28] LABS: ALBUMIN 2.6 g/dL (3.4-5.0); ANION GAP 7.5 mmol/L (8-16); BILIRUBIN - TOTAL 0.51 mg/dL (0.2-1.3); CALCIUM 8.4 mg/dL (8.5-10.1); CARBON DIOXIDE 29.5 mmol/L (21.0-32.0); CREATININE - SERUM 1.1 mg/dL (0.6-1.3); PROTEIN - SERUM 6.4 g/dL (6.4-8.2)
[2020-08-02 21:54] LABS: BILIRUBIN NEGATIVE (NEGATIVE); KETONE NEGATIVE (NEGATIVE); NITRITE NEGATIVE (NEGATIVE); UROBILINOGEN NORMAL mg/dL (< 2)
== END | disposition home or self-care (01) ==
LOC: D.LABREF 19:13
PROVIDERS: ATTEND Family Medicine
DX: I82.812 Embolism and thrombosis of superficial veins of left lower extremity (principal); I26.99 Other pulmonary embolism without acute cor pulmonale; I25.2 Old myocardial infarction

== ENCOUNTER → 2021-02-10 15:42 | Outpatient (CLI) | payer MEDICARE ==
[2020-11-25 15:48] VITALS: BMI 55.7
[~2021-02-10 15:42] MED LIST changes: +LISINOPRIL20 MG PO; +METHOCARBAMOL500 MG PO; +PROSCAR5 MG PO; +PROTONIX40 MG PO
[2021-02-10 15:55] LABS: BASOPHILS 0.3 % (0-2); EOSINOPHILS 3.7 % (0-7); HEMATOCRIT 35.2 % (42.0-54.0); IMMATURE GRANULOCYTES 0.2 % (0-5); LYMPHOCYTE ABS# 0.76 10x3/uL (1.32-3.57); LYMPHOCYTES 11.6 % (15-50); MCH 29.3 pg (26.0-34.0); MCHC 31.3 g/dL (31.0-37.0); MCV 93.6 fL (80.0-100.0); MEAN PLATELET VOLUME 10.2 fL (7.4-10.4); MONOCYTES 8.4 % (2-11); NEUTROPHIL ABS# 4.97 10x3/uL (1.78-5.38); NEUTROPHILS 75.8 % (40-80); PLATELET COUNT 239 10x3/uL (130-400); RBC 3.76 10x6/uL (4.20-6.10); RDW 17.1 % (11.5-14.5); WBC 6.6 10x3/uL (4.8-10.8)
[2021-02-10 16:09] LABS: ALBUMIN 2.8 g/dL (3.4-5.0); BILIRUBIN - TOTAL 1.02 mg/dL (0.2-1.3); CALCIUM 8.2 mg/dL (8.5-10.1); CARBON DIOXIDE 24.7 mmol/L (21.0-32.0); CREATININE - SERUM 1.7 mg/dL (0.6-1.3); POTASSIUM - SERUM 4.7 mmol/L (3.5-5.1); PROTEIN - SERUM 6.1 g/dL (6.4-8.2)
[2021-02-10 16:40] LABS: BACTERIA MODERATE HPF (NONE SEEN); BILIRUBIN NEGATIVE (NEGATIVE); KETONE NEGATIVE (NEGATIVE); NITRITE NEGATIVE (NEGATIVE); UROBILINOGEN NORMAL mg/dL (< 2); WHITE CELLS - URINE 0-5 HPF (0-1)
== END | disposition home or self-care (01) ==
LOC: D.LABREF 15:42
PROVIDERS: ATTEND Family Medicine
DX: I87.2 Venous insufficiency (chronic) (peripheral) (principal); Z79.01 Long term (current) use of anticoagulants

== ENCOUNTER 2021-03-16 21:39 | Inpatient (IN) | payer MEDICARE ==
[~2021-03-16] VITALS: Ht 190.5 cm; Wt 206.4 kg
--- NOTE | 2021-03-16 22:07 | NUR ---
PT HEAD OF BED ADJUSTED TO LEVEL OF COMFORT.
--- NOTE | 2021-03-16 22:21 | NUR ---
PT GIVEN PILLOW TO ELEVATE RLE.
[2021-03-16 22:27] LABS: BASOPHILS 0.1 % (0-2); EOSINOPHILS 0.3 % (0-7); HEMATOCRIT 33.4 % (42.0-54.0); HEMOGLOBIN 10.8 g/dL (13.5-17.5); IMMATURE GRANULOCYTES 0.3 % (0-5); LYMPHOCYTE ABS# 0.43 10x3/uL (1.32-3.57); LYMPHOCYTES 3.4 % (15-50); MCH 29.8 pg (26.0-34.0); MCHC 32.3 g/dL (31.0-37.0); MEAN PLATELET VOLUME 9.5 fL (7.4-10.4); MONOCYTES 2.6 % (2-11); NEUTROPHIL ABS# 11.64 10x3/uL (1.78-5.38); NEUTROPHILS 93.3 % (40-80); PLATELET COUNT 239 10x3/uL (130-400); RBC 3.63 10x6/uL (4.20-6.10); RDW 17.8 % (11.5-14.5); WBC 12.5 10x3/uL (4.8-10.8)
[2021-03-16 22:30] VITALS: BP 145/58
[2021-03-16 22:37] LABS: ANION GAP 14.9 mmol/L (8-16); CALCIUM 8.3 mg/dL (8.5-10.1); CREATININE - SERUM 1.7 mg/dL (0.6-1.3); POTASSIUM - SERUM 3.9 mmol/L (3.5-5.1)
[2021-03-16 22:40] LABS: ALBUMIN 2.7 g/dL (3.4-5.0); BILIRUBIN - TOTAL 1.69 mg/dL (0.2-1.3); PROTEIN - SERUM 6.6 g/dL (6.4-8.2)
--- NOTE | 2021-03-16 23:00 | NUR ---
PT WEIGHER AND GRADER LIGHT OFTEN, EXPLAINED THAT WE WILL HAVE EDP TO SEE HIM SOON POSSIBLE. PT ASKING TO BE MADE COMFORTABLE, ASKING FOR WATER, ASKING FOR NEW BED. EXPLAINED TO PT THAT WE ARE AWAITING BIGGER BED.
--- NOTE | 2021-03-16 23:25 | NUR ---
PT MOVED TO OTHER BED BY SELF, HELPED REPOSITION X2 NURSES. EDUCATED ON USE OF BED. CALL LIGHT WITHIN REACH. PT CONTINUES TO USE CALL LIGHT EXCESSIVELY DESPITE ATTEMPTS TO MAKE PT COMFORTABLE.
[2021-03-16 23:30] VITALS: BP 151/63
--- NOTE | 2021-03-17 00:23 | NUR ---
SECOND SET OF BLOOD CULTURES DRAWN AT THIS TIME.
[2021-03-17 02:03] LABS: CKMB 0.5 U/L (0.0-3.6); CREATINE KINASE 55 UL (21-232); MAGNESIUM - SERUM 1.5 mg/dL (1.8-2.4); PRO BNP 3355 pg/mL (0-125)
[2021-03-17 02:06] LABS: TROPONIN-I 0.101 ng/mL (0.000-0.060)
[2021-03-17 03:08] VITALS: BP 132/66; BMI 56.9
[2021-03-17] MEDS ORDERED: XANAX0.5 MG PO (03:42)
[2021-03-17 04:00] VITALS: BP 132/66
[2021-03-17 04:32] LABS: BILIRUBIN NEGATIVE (NEGATIVE); KETONE NEGATIVE (NEGATIVE); NITRITE NEGATIVE (NEGATIVE); UROBILINOGEN NORMAL mg/dL (< 2)
[2021-03-17 04:34] LABS: BACTERIA FEW HPF (NONE SEEN); SQUAMOUS EPITHELIAL 0-5 HPF (0-4); WHITE CELLS - URINE 0-5 HPF (0-1)
[2021-03-17 08:02] LABS: CKMB 0.5 U/L (0.0-3.6); CREATINE KINASE 70 UL (21-232)
[2021-03-17 08:03] LABS: TROPONIN-I 0.096 ng/mL (0.000-0.060)
--- NOTE | 2021-03-17 08:05 | NUR ---
RESTING IN BED WITH EYES OPEN, ALERT AND ORIENTED. CURRENTLY RCVING 2L VIA NC. IV LOCATED TO LEFT AC CURRENTLY SL. PT STATES HE WOULD LIKE TO HAVE A CATHETER , EDUCATED ON THE RISK OF CATHETER PLACEMENT IF THEY ARE NOT ABSOLUTELY NEEDED THEN HE STATES THAT HE HAS TROUBLE URINATING AT TIMES, INFORMED HIM THAT I WOULD TALK TO THE DR. ABOUT POSSIBLE PLACEMENT. WILL CONT TO MONITOR.
--- NOTE | 2021-03-17 08:30 | NUR ---
SPOKE WITH TERRELL BASS APRN ABOUT ELIZABETH PLACEMENT AND WAS INSTRUCTED I COULD DO SO. ELIZABETH CATHETER PLACED.
[2021-03-17 09:40] VITALS: BP 160/56
[2021-03-17 12:52] LABS: BASOPHILS 0.1 % (0-2); EOSINOPHILS 0.9 % (0-7); HEMATOCRIT 31.2 % (42.0-54.0); HEMOGLOBIN 9.9 g/dL (13.5-17.5); IMMATURE GRANULOCYTES 0.3 % (0-5); LYMPHOCYTE ABS# 0.41 10x3/uL (1.32-3.57); LYMPHOCYTES 3.4 % (15-50); MCH 29.6 pg (26.0-34.0); MCHC 31.7 g/dL (31.0-37.0); MCV 93.4 fL (80.0-100.0); MEAN PLATELET VOLUME 9.5 fL (7.4-10.4); NEUTROPHIL ABS# 11.12 10x3/uL (1.78-5.38); NEUTROPHILS 92.3 % (40-80); PLATELET COUNT 212 10x3/uL (130-400); RBC 3.34 10x6/uL (4.20-6.10); RDW 18.2 % (11.5-14.5); WBC 12.1 10x3/uL (4.8-10.8)
[2021-03-17 13:21] LABS: CKMB 0.5 U/L (0.0-3.6); CREATINE KINASE 76 UL (21-232); TROPONIN-I 0.052 ng/mL (0.000-0.060)
[2021-03-17 14:59] VITALS: BP 151/54
[2021-03-17 15:23] VITALS: BMI 56.8
--- NOTE | 2021-03-17 15:38 | NUR ---
OT NOTE: PT REQUIRED MAX A FOR SUPINE TO SIT. PT COMPLETED IN ROOM ADL MOB WITH CGA-MIN A USING RW. PT COMPLETED SITTING BALANCE WITH MIN A. PT IS EASILY FATIGUED. PT REQUIRED MAX A FOR SIT TO SUPINE. [id number] ARIELLE SCALES COTA
[2021-03-17 17:32] VITALS: BP 148/59
[2021-03-17 21:31] VITALS: BP 129/42
--- NOTE | 2021-03-18 03:08 | NUR ---
I have reviewed this patient and I concur with the Shift Assessment completed by the Licensed Practical Nurse today this shift.
[2021-03-18 05:41] VITALS: BP 124/52
[2021-03-18 06:59] LABS: BASOPHILS 0.1 % (0-2); EOSINOPHILS 1.7 % (0-7); HEMATOCRIT 29.7 % (42.0-54.0); HEMOGLOBIN 9.6 g/dL (13.5-17.5); IMMATURE GRANULOCYTES 0.3 % (0-5); LYMPHOCYTE ABS# 0.59 10x3/uL (1.32-3.57); LYMPHOCYTES 7.7 % (15-50); MCH 29.6 pg (26.0-34.0); MCHC 32.3 g/dL (31.0-37.0); MCV 91.7 fL (80.0-100.0); MEAN PLATELET VOLUME 9.6 fL (7.4-10.4); MONOCYTES 6.6 % (2-11); NEUTROPHIL ABS# 6.43 10x3/uL (1.78-5.38); NEUTROPHILS 83.6 % (40-80); PLATELET COUNT 193 10x3/uL (130-400); RBC 3.24 10x6/uL (4.20-6.10); RDW 18.3 % (11.5-14.5)
[2021-03-18 07:21] LABS: WBC 7.7 10x3/uL (4.8-10.8)
[2021-03-18 07:37] LABS: ALBUMIN 2.3 g/dL (3.4-5.0); ANION GAP 13.5 mmol/L (8-16); BILIRUBIN - TOTAL 1.08 mg/dL (0.2-1.3); CALCIUM 7.8 mg/dL (8.5-10.1); CARBON DIOXIDE 22.9 mmol/L (21.0-32.0); MAGNESIUM - SERUM 1.6 mg/dL (1.8-2.4); PHOSPHOROUS 3.6 mg/dL (2.5-4.9); POTASSIUM - SERUM 4.4 mmol/L (3.5-5.1); PROTEIN - SERUM 5.7 g/dL (6.4-8.2)
--- NOTE | 2021-03-18 07:59 | NUR ---
IN BED, RESTING. AROUSES TO VOICE. IV INFUSING PER MAR. FREE FROM SIGNS OF DISTRESS. BED LOW POSITION, CALL LIGHT IN REACH. WILL CONTINUE TO MONITOR.
[2021-03-18 09:07] VITALS: BP 124/56
[2021-03-18 14:06] VITALS: BP 130/48
[2021-03-18 16:12] VITALS: BP 124/58
[2021-03-18 20:00] VITALS: BP 109/55
[2021-03-19] VITALS: BP 152/68
--- NOTE | 2021-03-19 00:15 | NUR ---
I have reviewed this patient and I concur with the Shift Assessment completed by the Licensed Practical Nurse today this shift.
[2021-03-19 04:00] VITALS: BP 150/69
[2021-03-19 06:04] LABS: BASOPHILS 0.1 % (0-2); EOSINOPHILS 2.1 % (0-7); HEMATOCRIT 30.9 % (42.0-54.0); IMMATURE GRANULOCYTES 0.2 % (0-5); LYMPHOCYTE ABS# 0.55 10x3/uL (1.32-3.57); LYMPHOCYTES 6.7 % (15-50); MCH 29.3 pg (26.0-34.0); MCHC 32.4 g/dL (31.0-37.0); MCV 90.6 fL (80.0-100.0); MEAN PLATELET VOLUME 10.1 fL (7.4-10.4); MONOCYTES 6.9 % (2-11); NEUTROPHIL ABS# 6.91 10x3/uL (1.78-5.38); RBC 3.41 10x6/uL (4.20-6.10); RDW 18.1 % (11.5-14.5); WBC 8.2 10x3/uL (4.8-10.8)
[2021-03-19 06:14] LABS: PLATELET COUNT 240 10x3/uL (130-400)
[2021-03-19 06:32] LABS: ALBUMIN 2.5 g/dL (3.4-5.0); ANION GAP 13.4 mmol/L (8-16); BILIRUBIN - TOTAL 0.91 mg/dL (0.2-1.3); CALCIUM 8.4 mg/dL (8.5-10.1); CARBON DIOXIDE 25.2 mmol/L (21.0-32.0); CREATININE - SERUM 2.2 mg/dL (0.6-1.3); MAGNESIUM - SERUM 1.7 mg/dL (1.8-2.4); POTASSIUM - SERUM 4.6 mmol/L (3.5-5.1); PROTEIN - SERUM 6.7 g/dL (6.4-8.2)
--- NOTE | 2021-03-19 07:00 | NUR ---
0700 BEDSIDE REPORT RECEIVED AWAKE ALERT IN BED CELLULITIS OF ANTONIO LOWER LEGS RIGHT LEG WEEPING BOTH LEGS WITH 4+ EDEMA NOTED REMAINS AT BEDSIDE
[2021-03-19 07:40] VITALS: BP 142/67
[2021-03-19 08:29] VITALS: BP 115/41
--- NOTE | 2021-03-19 10:12 | NUR ---
1012 HEART RATE DIPPED TO 35 A-FLUTTER CHECKED PT AND WOKE HIM UP TELEMETY NOW 59 A-FLUTTER CALLED DR BRAGA HE STATED THAT HE DOES THAT WHEN HE SLEEPS REPEATED 35 A-FLUTTER TO VERIFIY THAT DR MARTINO HAD HEARD ME CORRECTLY THE ACKNOWLEDGED THE HEART RATE OF 35
[2021-03-19 13:34] VITALS: BP 134/50
--- NOTE | 2021-03-19 19:42 | NUR ---
RESPONDED TO PATIENT CALL LIGHT. TURNED PATIENT AC ON PER REQUEST. ASSISTED PATIENT REPOSITIONING IN BED. PATIENT DENIES OTHER NEEDS AT THIS TIME. BED IN LOWEST POSITION AND CALL LIGHT IN REACH. ENCOURAGED PATIENT TO CALL WITH NEEDS.
--- NOTE | 2021-03-19 21:46 | NUR ---
ADMINISTERED MEDS PER ORDERS. PATIENT KAMERON WELL. TURNED OFF AC AND ASSISTED PATIENT REPOSITIONING PER REQUEST. PATIENT DENIES OTHER NEEDS.
[2021-03-20] VITALS: BP 133/47
--- NOTE | 2021-03-20 00:10 | NUR ---
RESPONDED TO PATIENT CALL LIGHT. REPOSITIONED PATIENT'S PILLOW AND TURNED ON AC PER PATIENT REQUEST.
--- NOTE | 2021-03-20 01:07 | NUR ---
RESPONDED TO PATIENT CALL LIGHT. ASSISTED PATIENT WITH HOME CPAP AND GETTING SITUATED IN BED. PATIENT DENIES OTHER NEEDS AT THIS TIME.
[2021-03-20 04:00] VITALS: BP 125/52
[2021-03-20 06:45] LABS: BASOPHILS 0.1 % (0-2); EOSINOPHILS 3.9 % (0-7); HEMATOCRIT 30.7 % (42.0-54.0); HEMOGLOBIN 9.9 g/dL (13.5-17.5); IMMATURE GRANULOCYTES 0.3 % (0-5); LYMPHOCYTES 8.8 % (15-50); MCH 29.3 pg (26.0-34.0); MCHC 32.2 g/dL (31.0-37.0); MCV 90.8 fL (80.0-100.0); MEAN PLATELET VOLUME 10.4 fL (7.4-10.4); MONOCYTES 8.1 % (2-11); NEUTROPHIL ABS# 6.25 10x3/uL (1.78-5.38); NEUTROPHILS 78.8 % (40-80); PLATELET COUNT 230 10x3/uL (130-400); RBC 3.38 10x6/uL (4.20-6.10); WBC 7.9 10x3/uL (4.8-10.8)
[2021-03-20 06:57] LABS: ALBUMIN 2.3 g/dL (3.4-5.0); ANION GAP 12.7 mmol/L (8-16); BILIRUBIN - TOTAL 0.91 mg/dL (0.2-1.3); CALCIUM 8.6 mg/dL (8.5-10.1); CREATININE - SERUM 2.4 mg/dL (0.6-1.3); MAGNESIUM - SERUM 1.9 mg/dL (1.8-2.4); POTASSIUM - SERUM 4.7 mmol/L (3.5-5.1); PROTEIN - SERUM 6.3 g/dL (6.4-8.2)
--- NOTE | 2021-03-20 08:00 | EC ---
PATIENT:JACKY BARILLAS DATE OF SERVICE: 03/17/21 SEX: M MEDICAL RECORD: [id number] DATE OF : [birth year] LOCATION:[facility] AGE OF PATIENT: 66 ADMISSION DATE: 03/17/21 REFERRING PHYSICIAN: INTERPRETING PHYSICIAN: VARGHESE BRAGA MD ECHOCARDIOGRAM REPORT ECHO CHARGES 4 ECHO COMPLETE Date: 03/17/21 CLINICAL DIAGNOSIS: FOCAL WALL MOTION ECHOCARDIOGRAPHIC MEASUREMENTS (adult normal given) AC root (d.<3.7cm) 3.6 cm LV Septum d (<1.2 cm> 1.5 cm Valve Excursion 2.2 cm LV Septum (systole) 2.0 cm Left Atria (s.<4.0cm> 5.4 cm LVPW d(<1.2cm) 1.0 cm RV (d.<2.3cm) 3.8 cm LVPW (sytole) 1.5 cm LV diastole(<5.6CM) 7.3 cm MV E-F(>70mm/sec) cm LV systole 5.4 cm LVOT Diameter 2.4 cm MV exc.(>10mm) 1.6 cm Est.ejection fraction (50-75%) % DOPPLER: LVIT cm/sec A 50 cm/sec E 92 cm/sec LA cm/sec RVSP 39 mmHg LVOT 89 cm/sec AOP1/2T m/s Asc. Ao 152 cm/sec RVOT 94 cm/sec RA cm/sec PA 105 cm/sec AV Gradient Peak 9.2 mmHg AV Mean 6.3 mmHg AV Area 2.5 cm MV Gradient Peak 9.1 mmHg MV Mean 3.3 mmHg MV Area cm COMMENTS: Integration Technician: Jenny CHILDS Drum Barker Operator: 3 Dr. Reynoso TAPE# Pericardial Effusion N DATE OF SERVICE: Adequate 2D, color-flow imaging, spectral Doppler, and M-Mode Somewhat technically difficult study due to the patient's underlying body habitus and morbid obesity. Grossly, LVH appears present. LV internal dimension is dilated at 7.3 cm. There is mild hypokinesis of the septal wall. Overall, LV function preserved at 50%. Aortic valve sclerosis without evidence of stenosis by Doppler ECHOCARDIOGRAM REPORT [id number] JACKY BARILLAS interrogation. There is mild AI by color-flow imaging. Left atrium is dilated at 5.4 cm. Mitral valve shows no prolapse, mild MR. Right-sided chamber is grossly normal. Mild TR. TRANSINT:[id number] Voice Confirmation ID: [id number] DOCUMENT ID: [id number] VARGHESE BRAGA MD at 0800 CC: [id number] DICTATION DATE: 03/18/2158 MEDICAL OFFICE SUPERVISOR: 03/18/21 1315 ADM IN [place] [address] [place] [address]
[2021-03-20 08:58] VITALS: BP 129/50
--- NOTE | 2021-03-20 09:35 | NUR ---
0935 PATIENT RESTING WITH HIS EYES CLOSED AND WAS NOTIFIED BY CROWN ATTACHER OF A HEART RATE OF 32 PAGED DONN KLEIN [facility]ARDIOLOGY WHILE WAITING ON RETURN CALL PTS HEART INCREASED TO 65 AND AGAIN DIPPED DOWN CALL RETURNED AND DR BRAGA NOTIFIED BY DONN AND STATED TO WATCH HIS HEART RATE AND NO INTERVENTIONS WAS NECESSARY AT THIS TIME
[2021-03-20 10:42] LABS: PRO/CRE RATIO URINE 1.4 mg/g; PROTEIN - URINE 56.3 mg/dL (0.0-11.9)
--- NOTE | 2021-03-20 12:27 | NUR ---
1205 PHYSICAL THERAPY X 2 AND WALKER TO ASSIST PT TO BATHROOM WHILE WEARING BM NOTED LINENS CHANGED RETURNED TO BED WITH PHYSICAL [id number] AND WALKER PT TOLERATED WELL AND DID BETTER THAN EXPECTED PER THERAPIST VERBAL RESPONSE
--- NOTE | 2021-03-20 12:44 | NUR ---
07 BEDSIDE REPORT RECEIVED FROM CHACORTA PT AWAKE ALERT AND FOUND SITTING ON BSC ASSIST X 1 TO RETURN TO BED WHILE WEARING SPECIAL MADE SHOES PRIOR TO ADMIT
[2021-03-20 13:53] VITALS: BP 158/59
--- NOTE | 2021-03-20 14:20 | NUR ---
OT NOTE: ATTEMPTED TMT IN AM.. PTS REQUESTED THAT WE HOLD ON THERAPY BECAUSE PT HAD A BAD NIGHT AND WAS JUST NOW GETTING SOME REST. MAZIN LEYVA, OTR/L
[2021-03-20 15:58] VITALS: Ht 190.5 cm; Wt 206.4 kg
--- NOTE | 2021-03-20 17:18 | NUR ---
5746 ASSIST X 2 UP TO BATHROOM SMALL SOFT BM NOTED TOLLERATED AMBULATION WELL WITH ASSIST X 2 AND USE OF WALKER
[2021-03-20 17:36] VITALS: BP 132/65
[2021-03-21] VITALS: BP 154/65
[2021-03-21 04:00] VITALS: BP 131/62
[2021-03-21 07:57] LABS: ALBUMIN 2.3 g/dL (3.4-5.0); ANION GAP 13.8 mmol/L (8-16); BILIRUBIN - TOTAL 0.81 mg/dL (0.2-1.3); CALCIUM 8.5 mg/dL (8.5-10.1); CARBON DIOXIDE 23.9 mmol/L (21.0-32.0); CREATININE - SERUM 2.6 mg/dL (0.6-1.3); MAGNESIUM - SERUM 2.1 mg/dL (1.8-2.4); POTASSIUM - SERUM 4.7 mmol/L (3.5-5.1)
[2021-03-21 08:04] LABS: BASOPHILS 0.2 % (0-2); EOSINOPHILS 4.5 % (0-7); HEMATOCRIT 30.6 % (42.0-54.0); IMMATURE GRANULOCYTES 0.5 % (0-5); LYMPHOCYTE ABS# 1.21 10x3/uL (1.32-3.57); LYMPHOCYTES 14.3 % (15-50); MCH 29.8 pg (26.0-34.0); MCHC 32.7 g/dL (31.0-37.0); MCV 91.1 fL (80.0-100.0); MEAN PLATELET VOLUME 10.2 fL (7.4-10.4); MONOCYTES 7.9 % (2-11); NEUTROPHIL ABS# 6.13 10x3/uL (1.78-5.38); NEUTROPHILS 72.6 % (40-80); PLATELET COUNT 252 10x3/uL (130-400); RBC 3.36 10x6/uL (4.20-6.10); RDW 18.1 % (11.5-14.5); WBC 8.5 10x3/uL (4.8-10.8)
--- NOTE | 2021-03-21 08:15 | NUR ---
ALERT AND ORIENTED. ASSESSMENT COMPLETE. DENIES NEEDS. BED LOW. CALL DOBBS AND PERSONAL ITEMS IN REACH. WILL CONTINUE TO MONITOR.
[2021-03-21 09:25] VITALS: BP 128/86
[2021-03-21 12:42] VITALS: BP 128/49
--- NOTE | 2021-03-21 14:21 | NUR ---
Nutrition Follow-up: Diet: Diabetic PO intake: 100%, he states that his appetite is not great. States that he is "picking at his food." Last BM: none recorded since admit Wt: 455# (03/17/21) Meds noted: abx, lasix Labs noted: BUN 66(H), Cr 2.6(H), GFR 26(L) Recommend continue current diet. Patient eating well. RD will follow-up 03/24/21.
--- NOTE | 2021-03-21 15:29 | NUR ---
OT NOTE: PT COMPLETED BED MOB TASKS WITH MAX A FOR POSITIONING AND SCOOTING UP. PT COMPLETED BUE AROM WITH FUNCTIONAL ADL TASKS TOLERATED. 115-135 ARIELLE SCALES COTA
[2021-03-21 18:14] VITALS: BP 135/69
[2021-03-21 20:00] VITALS: BP 153/66
--- NOTE | 2021-03-22 01:02 | NUR ---
WALKING ROUNDS CHGE OF SHIFT DEMANDS NURSE ASSIST PATIENT TO BATHRM ASKED HOW MOBILE ARE YOU TO STAND AND AMBULATE.STATES DON'T KNOW WHAT YOU'RE TALKING ABOUT.CAN YOU AMBULATE ONCE YOU'RE IN STANDING POSITION STATES HE CAN WALK.TO BATHROOM WITH WALKER AND MAX. ASSIST OF TWO NURSES. SAT APPROX 60 SECONDS THEN INSIST ON GOING BACK TO BED.SOB 02 0N SATS 91% HOB UP
--- NOTE | 2021-03-22 03:03 | NUR ---
I have reviewed this patient and I concur with the Shift Assessment completed by the Licensed Practical Nurse today this shift.
[2021-03-22 06:25] LABS: BASOPHILS 0.2 % (0-2); EOSINOPHILS 5.3 % (0-7); HEMATOCRIT 29.6 % (42.0-54.0); HEMOGLOBIN 9.4 g/dL (13.5-17.5); IMMATURE GRANULOCYTES 0.4 % (0-5); LYMPHOCYTE ABS# 1.09 10x3/uL (1.32-3.57); LYMPHOCYTES 11.8 % (15-50); MCH 29.2 pg (26.0-34.0); MCHC 31.8 g/dL (31.0-37.0); MCV 91.9 fL (80.0-100.0); MEAN PLATELET VOLUME 9.9 fL (7.4-10.4); MONOCYTES 6.9 % (2-11); NEUTROPHIL ABS# 6.99 10x3/uL (1.78-5.38); NEUTROPHILS 75.4 % (40-80); PLATELET COUNT 279 10x3/uL (130-400); RBC 3.22 10x6/uL (4.20-6.10); RDW 18.1 % (11.5-14.5); WBC 9.3 10x3/uL (4.8-10.8)
[2021-03-22 06:54] LABS: ALBUMIN 2.2 g/dL (3.4-5.0); ANION GAP 12.5 mmol/L (8-16); BILIRUBIN - TOTAL 0.79 mg/dL (0.2-1.3); CALCIUM 8.6 mg/dL (8.5-10.1); CREATININE - SERUM 2.5 mg/dL (0.6-1.3); MAGNESIUM - SERUM 2.1 mg/dL (1.8-2.4); POTASSIUM - SERUM 4.5 mmol/L (3.5-5.1); PROTEIN - SERUM 6.1 g/dL (6.4-8.2)
[2021-03-22 09:01] VITALS: BP 168/66
--- NOTE | 2021-03-22 11:03 | NUR ---
RESTING IN BED, NO DISTRESS NOTED, C/O PAIN THIS AM, TYLENOL PROVIDED
[2021-03-22 11:12] LABS: ACLA - IGG AB <9 GPL U/mL (0-14); ACLA - IGM AB <9 MPL U/mL (0-12)
[2021-03-22 13:55] VITALS: BP 145/60
--- NOTE | 2021-03-22 15:19 | NUR ---
OT NOTE: PT EXHIBITED INCREASED CONFUSION. PT COMPLETED BED MOB CGA. PT COMPLETED EOB SITTING WITH CGA. PT COMPLETED SIT TO STAND WITH CGA. [id number] ARIELLE SCALES COTA
[2021-03-22 17:46] VITALS: BP 153/73
[2021-03-22 20:00] VITALS: BP 147/47
--- NOTE | 2021-03-23 03:55 | NUR ---
I have reviewed this patient and I concur with the Shift Assessment completed by the Licensed Practical Nurse today this shift.
[2021-03-23 04:00] VITALS: BP 128/47
[2021-03-23 06:12] LABS: BASOPHILS 0.2 % (0-2); EOSINOPHILS 5.6 % (0-7); HEMATOCRIT 31.5 % (42.0-54.0); LYMPHOCYTE ABS# 1.37 10x3/uL (1.32-3.57); LYMPHOCYTES 16.3 % (15-50); MCH 29.2 pg (26.0-34.0); MCHC 31.7 g/dL (31.0-37.0); MCV 91.8 fL (80.0-100.0); NEUTROPHIL ABS# 6.03 10x3/uL (1.78-5.38); NEUTROPHILS 71.9 % (40-80); PLATELET COUNT 324 10x3/uL (130-400); RBC 3.43 10x6/uL (4.20-6.10); WBC 8.4 10x3/uL (4.8-10.8)
[2021-03-23 06:35] LABS: ALBUMIN 2.3 g/dL (3.4-5.0); ANION GAP 13.3 mmol/L (8-16); BILIRUBIN - TOTAL 0.89 mg/dL (0.2-1.3); CALCIUM 8.9 mg/dL (8.5-10.1); CARBON DIOXIDE 25.2 mmol/L (21.0-32.0); CREATININE - SERUM 2.5 mg/dL (0.6-1.3); MAGNESIUM - SERUM 2.3 mg/dL (1.8-2.4); POTASSIUM - SERUM 4.5 mmol/L (3.5-5.1); PROTEIN - SERUM 6.6 g/dL (6.4-8.2)
[2021-03-23 08:57] VITALS: BP 140/53
[2021-03-23] MEDS ORDERED: XARELTO10 MG PO (11:33)
[2021-03-23] MEDS ORDERED: OMNICEF300 MG PO (11:33)
[2021-03-23] MEDS ORDERED: FLORAJEN DIGES1 EACH PO (11:33)
[2021-03-23] MEDS ORDERED: IPRAT-ALBUT 0.5-3 ML INH (11:33)
[2021-03-23 13:14] VITALS: BP 156/63
--- NOTE | 2021-03-23 13:36 | MORECARE ---
CASE MANAGEMENT DISCHARGE SUMMARY PATIENT: JACKY BARILLAS UNIT: [id number] ADM DATE: 03/17/21 AGE: 66 : 57 SEX: M ROOM/BED: D.[facility]4 AUTHOR: ZARA,DOC PHYSICIAN: REFERRING PHYSICIAN: KACIE ALEMAN MD DATE OF SERVICE: 03/23/21 Case Management Discharge Planning Summary DCP REVIEW SUMMARY ANTICIPATED D/C DATE: EXPECTED LOS : CASE STATUS: DCP Initiated INITIAL REVIEW: 03/17/2021 INITIAL REVIEWER: Sary Doyle FINAL DISCHARGE DISPOSITION: : FINAL REVIEWER: FINAL REVIEW DATE: DCP Focus Questions & Answers QUESTION: ANSWER : PATIENT: JACKY BARILLAS ENCOUNTER: [id number] MEDICAL RECORD#: [id number] ADMISSION DATE: 03/17/2021 DISCHARGE DATE: ATTENDING MD: KACIE SANABRIA : AGE: 66 MARITAL STATUS: M DC PLAN ID: [id number] FACILITY: [facility] PRINTED ON: 03/23/21 13:36 CT All edits/amendments must be made on the electronic document DICTATION DATE: 03/23/21 133 WAITER/WAITRESS BAR: DM 03/23/21 1336 RPT#: [id number] DC DATE: STATUS: ADM IN [facility] [address] [place] [address] END OF REPORT
--- NOTE | 2021-03-23 13:51 | MORECARE ---
CASE MANAGEMENT DISCHARGE SUMMARY PATIENT: JACKY BARILLAS UNIT: [id number] ADM DATE: 03/17/21 AGE: 66 : 56 SEX: M ROOM/BED: D.2234 AUTHOR: ZARA,DOC PHYSICIAN: REFERRING PHYSICIAN: KACIE ALEMAN MD DATE OF SERVICE: 03/23/21 Case Management Discharge Planning Summary COMMENTS ENTERED DATE: 03/23/21 13:35 CT COMMENT TYPE: Discharge Planning REVIEWER: Sary Doyle CM MET WITH PATIENT AND HIS AT BEDSIDE FOR DISCHARGE PLANNING NEEDS. PATIENT STATES HAS CPAP, OXYGEN, WHEEL CHAIR, WALKER, BED SIDE COMMODE, AND MOTORIZED SCOOTER AT [facility]. STATES CURRENT WITH [facility]. PCP IS DR. SMITH AND HE USES [facility]. PLAN IS TO DC TO HOME WITH AND SHE WILL TRANSPORT HIM WHEN DISCHARGED. IMM SIGNED AND COPY ON CHART. CM TO FOLLOW AND ASSIST NEEDED. DCP REVIEW SUMMARY ANTICIPATED D/C DATE: EXPECTED LOS : CASE STATUS: DCP Initiated INITIAL REVIEW: 03/17/2021 INITIAL REVIEWER: Sary Doyle FINAL DISCHARGE DISPOSITION: : FINAL REVIEWER: FINAL REVIEW DATE: DCP Focus Questions & Answers QUESTION: ANSWER : PATIENT: JACKY BARILLAS ENCOUNTER: [id number] MEDICAL RECORD#: [id number] ADMISSION DATE: 03/17/2021 DISCHARGE DATE: ATTENDING MD: KACIE SANBARIA : AGE: 66 MARITAL STATUS: M DC PLAN ID: [id number] FACILITY: [facility] PRINTED ON: 03/23/21 13:51 CT All edits/amendments must be made on the electronic document DICTATION DATE: 03/23/21 1351 FLOATING LABOR GANG SUPERVISOR: DM 03/23/21 1351 RPT#: [id number] DC DATE: STATUS: ADM IN [facility] [address] [place] [address] END OF REPORT
--- NOTE | 2021-03-23 14:29 | NUR ---
0700 PT SITTING UP IN CHAIR ASSISTED BACK TO BED WITH ASSIST X 2 KAMERON WELL
--- NOTE | 2021-03-23 14:30 | NUR ---
1433 WRITTEN AND VERBLA DISCHARGE INSTRUCTIONS GIVEN PT AND VERBALIZD UNDERSTANDING IV D/C ELIZABETH REMOVED
--- NOTE | 2021-03-23 15:59 | NUR ---
OT NOTE: PT RESISTANT IN AM, HOWEVER, PERFORMED WELL IN PM.. PT TRANSFERRED WITH FROM BED TO BS COMMODE.. PT SAT UP ON BS COMMODE FOR EXT TIME.. REPORTS THAT IT IS MORE COMFORTABLE TO HIM THAN THE RECLINER.. SIT TO STAND FROM BS COMMODE WITH MIN ASSIST; ABLE TO TRANSFER SEVERAL FEET WITH WALKER TO BED; EDUCATED ON ALLOWING PT TO PERFORM MUCH POSSBILE AND THEN SHE CAN HELP WITH REMAINDER OF ACT (I.E. SIT TO SUPINE IN BED). TOLD THERAPIST HER EXERCISE REGIMEN SHE PERFORMS WITH HIM AT HOME. SHE FEELS HE WILL DO BETTER ONCE HE IS HOME AND IN HIS OWN SURROUNDING. MAZIN LEYVA, OTR/L [phone]
--- NOTE | 2021-03-24 09:19 | MORECARE ---
CASE MANAGEMENT DISCHARGE SUMMARY PATIENT: JACKY BARILLAS UNIT: [id number] ADM DATE: 03/17/21 AGE: 66 : 57 SEX: M ROOM/BED: D.2234 AUTHOR: ZARA,DOC PHYSICIAN: REFERRING PHYSICIAN: KACIE ALEMAN MD DATE OF SERVICE: 03/24/21 Case Management Discharge Planning Summary COMMENTS ENTERED DATE: 03/23/21 13:35 CT COMMENT TYPE: Discharge Planning REVIEWER: Sary Doyle CM MET WITH PATIENT AND HIS AT BEDSIDE FOR DISCHARGE PLANNING NEEDS. PATIENT STATES HAS CPAP, OXYGEN, WHEEL CHAIR, WALKER, BED SIDE COMMODE, AND MOTORIZED SCOOTER AT [facility]. STATES CURRENT WITH [facility]. PCP IS DR. SMITH AND HE USES [facility]. PLAN IS TO DC TO HOME WITH AND SHE WILL TRANSPORT HIM WHEN DISCHARGED. IMM SIGNED AND COPY ON CHART. CM TO FOLLOW AND ASSIST NEEDED. DCP REVIEW SUMMARY ANTICIPATED D/C DATE: EXPECTED LOS : CASE STATUS: DCP Initiated INITIAL REVIEW: 03/17/2021 INITIAL REVIEWER: Sary Doyle FINAL DISCHARGE DISPOSITION: : FINAL REVIEWER: FINAL REVIEW DATE: DCP Focus Questions & Answers QUESTION: ANSWER : PATIENT: JACKY BARILLAS ENCOUNTER: [id number] MEDICAL RECORD#: [id number] ADMISSION DATE: 03/17/2021 DISCHARGE DATE: 03/23/2021 ATTENDING MD: KACIE SANABRIA : AGE: 66 MARITAL STATUS: M DC PLAN ID: [id number] FACILITY: [facility] PRINTED ON: 03/24/21 9:18 CT All edits/amendments must be made on the electronic document DICTATION DATE: 03/24/21917 TEMPERATURE REGULATOR PYROMETER: DM 03/24/21917 RPT#: [id number] DC DATE:03/23/21 STATUS: DIS IN [facility] [address] [place] [address] END OF REPORT
[2021-03-24 11:11] LABS: FACTOR II ACTIVITY 81 % (()); FACTOR II INHIBITOR - APTT 33.1 sec (()); FACTOR II INHIBITOR - PROTIME 12.3 sec (())
--- NOTE | 2021-03-24 13:53 | MORECARE ---
CASE MANAGEMENT DISCHARGE SUMMARY PATIENT: JACKY BARILLAS UNIT: [id number] ADM DATE: 03/17/21 AGE: 66 : 57 SEX: M ROOM/BED: D.2234 AUTHOR: ZARA,DOC PHYSICIAN: REFERRING PHYSICIAN: KACIE ALEMAN MD DATE OF SERVICE: 03/24/21 Case Management Discharge Planning Summary COMMENTS ENTERED DATE: 03/23/21 13:35 CT COMMENT TYPE: Discharge Planning REVIEWER: Sary Doyle CM MET WITH PATIENT AND HIS AT BEDSIDE FOR DISCHARGE PLANNING NEEDS. PATIENT STATES HAS CPAP, OXYGEN, WHEEL CHAIR, WALKER, BED SIDE COMMODE, AND MOTORIZED SCOOTER AT [facility]. STATES CURRENT WITH [facility]. PCP IS DR. SMITH AND HE USES [facility]. PLAN IS TO DC TO HOME WITH AND SHE WILL TRANSPORT HIM WHEN DISCHARGED. IMM SIGNED AND COPY ON CHART. CM TO FOLLOW AND ASSIST NEEDED. DCP REVIEW SUMMARY ANTICIPATED D/C DATE: EXPECTED LOS : CASE STATUS: DCP Initiated INITIAL REVIEW: 03/17/2021 INITIAL REVIEWER: Sary Doyle FINAL DISCHARGE DISPOSITION: : FINAL REVIEWER: FINAL REVIEW DATE: DCP Focus Questions & Answers QUESTION: ANSWER : PATIENT: JACKY BARILLAS ENCOUNTER: [id number] MEDICAL RECORD#: [id number] ADMISSION DATE: 03/17/2021 DISCHARGE DATE: 03/23/2021 ATTENDING MD: KACIE SANABRIA : AGE: 66 MARITAL STATUS: M DC PLAN ID: [id number] FACILITY: [facility] PRINTED ON: 03/24/21 13:53 CT All edits/amendments must be made on the electronic document DICTATION DATE: 03/24/21 1353 OUTBOARD SYSTEM OPERATOR: DM 03/24/21 1353 RPT#: [id number] DC DATE:03/23/21 STATUS: DIS IN [facility] [address] [place] [address] END OF REPORT
== END 2021-03-23 17:29 | disposition home health service (06) | DRG 871 ==
LOC: D.ER 21:39 → D.MS 03-17 00:36
PROVIDERS: Family Medicine; Internal Medicine Hematology & Oncology; Internal Medicine Nephrology; ADMIT Emergency Medicine; ATTEND Emergency Medicine
DX: A41.9 Sepsis, unspecified organism (principal); I21.A1 Myocardial infarction type 2; N17.0 Acute kidney failure with tubular necrosis; L03.115 Cellulitis of right lower limb; J96.11 Chronic respiratory failure with hypoxia; Z68.43 Body mass index [BMI] 50.0-59.9, adult; I10 Essential (primary) hypertension; I25.10 Atherosclerotic heart disease of native coronary artery without angina pectoris; I25.2 Old myocardial infarction; I87.8 Other specified disorders of veins; J44.9 Chronic obstructive pulmonary disease, unspecified; J45.909 Unspecified asthma, uncomplicated; Z99.81 Dependence on supplemental oxygen; K21.9 Gastro-esophageal reflux disease without esophagitis; M81.0 Age-related osteoporosis without current pathological fracture; N40.0 Benign prostatic hyperplasia without lower urinary tract symptoms; E66.01 Morbid (severe) obesity due to excess calories; F41.8 Other specified anxiety disorders

== ENCOUNTER → 2021-04-04 17:21 | Outpatient (CLI) | payer MEDICARE ==
[2021-03-20 15:58] VITALS: BMI 56.8
[~2021-04-04 17:21] MED LIST changes: +FLORAJEN DIGES1 EACH PO; +IPRAT-ALBUT 0.5-3 ML INH; +OMNICEF300 MG PO; +XARELTO10 MG PO
[2021-04-04 18:37] LABS: BASOPHILS 0.6 % (0-2); EOSINOPHILS 4.1 % (0-7); HEMATOCRIT 33.6 % (42.0-54.0); HEMOGLOBIN 10.8 g/dL (13.5-17.5); LYMPHOCYTES 12.7 % (15-50); MCH 29.5 pg (26.0-34.0); MCHC 32.2 g/dL (31.0-37.0); MCV 91.8 fL (80.0-100.0); MEAN PLATELET VOLUME 8.2 fL (7.4-10.4); MONOCYTES 7.2 % (2-11); NEUTROPHILS 75.4 % (40-80); PLATELET COUNT 289 10x3/uL (130-400); RBC 3.66 10x6/uL (4.20-6.10); RDW 17.6 % (11.5-14.5); WBC 6.7 10x3/uL (4.8-10.8)
[2021-04-04 18:43] LABS: BILIRUBIN NEGATIVE (NEGATIVE); KETONE NEGATIVE (NEGATIVE); NITRITE NEGATIVE (NEGATIVE); UROBILINOGEN NORMAL mg/dL (< 2)
[2021-04-04 18:44] LABS: BACTERIA FEW HPF (NONE SEEN); WHITE CELLS - URINE 0-5 HPF (0-1)
[2021-04-04 19:04] LABS: ALBUMIN 2.8 g/dL (3.4-5.0); ANION GAP 14.8 mmol/L (8-16); BILIRUBIN - TOTAL 1.12 mg/dL (0.2-1.3); CALCIUM 8.4 mg/dL (8.5-10.1); CARBON DIOXIDE 26.7 mmol/L (21.0-32.0); CREATININE - SERUM 2.5 mg/dL (0.6-1.3); POTASSIUM - SERUM 4.5 mmol/L (3.5-5.1); PROTEIN - SERUM 6.8 g/dL (6.4-8.2)
== END | disposition home or self-care (01) ==
LOC: D.LDO 17:21
PROVIDERS: ATTEND Family Medicine
DX: I25.10 Atherosclerotic heart disease of native coronary artery without angina pectoris (principal); S81.809A Unspecified open wound, unspecified lower leg, initial encounter; J44.9 Chronic obstructive pulmonary disease, unspecified; E78.5 Hyperlipidemia, unspecified

== ENCOUNTER 2021-04-08 06:09 | Inpatient (IN) | payer MEDICARE ==
[~2021-04-08] VITALS: Ht 190.5 cm; Wt 202.3 kg
[2021-04-08 07:08] VITALS: BP 162/54
--- NOTE | 2021-04-08 07:20 | NUR ---
PATIENT ATTEMPTED TO URINATE INTO A URINAL FOR URINE SPECIMEN. UNABLE TO VOID. IN AND OUT CATHETERIZATION COMPLETED. 200 MLS CLEAR YELLOW URINE RETURNED. SPECIMENT TO DIAMOND GRADER.
[2021-04-08 07:43] LABS: CALC OSMOLALITY 289 mosm/kg (275-300); CALCIUM 8.5 mg/dL (8.5-10.1); CARBON DIOXIDE 27.8 mmol/L (21.0-32.0); CHLORIDE - SERUM 106 mmol/L (98-107); CREATININE - SERUM 2.3 mg/dL (0.6-1.3); GLUCOSE 102 mg/dL (74-106); POTASSIUM - SERUM 4.2 mmol/L (3.5-5.1); SODIUM 139 mmol/L (136-145); UREA NITROGEN 46 mg/dL (7-18); eGFR NON AFRICAN AMERICAN 30 mL/min (90-120)
[2021-04-08 07:44] LABS: BASOPHILS 0.5 % (0-2); EOSINOPHILS 3.7 % (0-7); HEMATOCRIT 30.6 % (42.0-54.0); LYMPHOCYTES 13.2 % (15-50); MCH 30.2 pg (26.0-34.0); MCHC 32.8 g/dL (31.0-37.0); MCV 92.1 fL (80.0-100.0); MONOCYTES 8.7 % (2-11); NEUTROPHILS 73.9 % (40-80); PLATELET COUNT 253 10x3/uL (130-400); RBC 3.32 10x6/uL (4.20-6.10); RDW 17.1 % (11.5-14.5); WBC 6.5 10x3/uL (4.8-10.8)
[2021-04-08 07:48] LABS: APTT 45.7 SECONDS (22.8-39.4); INR 1.85 (0.85-1.17); PROTIME 19.8 SECONDS (11.6-15.0)
[2021-04-08 07:56] LABS: ALBUMIN 2.7 g/dL (3.4-5.0); ALKALINE PHOSPHATASE 110 U/L (30-120); ALT (SGPT) 28 U/L (10-68); BILIRUBIN - TOTAL 1.23 mg/dL (0.2-1.3); CREATINE KINASE 25 UL (21-232); PRO BNP 3625 pg/mL (0-125); PROTEIN - SERUM 6.8 g/dL (6.4-8.2); TROPONIN-I 0.033 ng/mL (0.000-0.060)
[2021-04-08 08:04] LABS: BACTERIA NONE SEEN HPF (NONE SEEN); BILIRUBIN NEGATIVE (NEGATIVE); KETONE NEGATIVE (NEGATIVE); NITRITE NEGATIVE (NEGATIVE); SQUAMOUS EPITHELIAL NONE SEEN HPF (0-4); UROBILINOGEN NORMAL mg/dL (< 2); WHITE CELLS - URINE NONE SEEN HPF (0-1)
--- NOTE | 2021-04-08 08:50 | NUR ---
PT TO CT VIA STRETCHER. TO BE TRANSPORTED TO [facility] RM [address]
[2021-04-08] MEDS ORDERED: PRISTIQ100 MG PO (09:06)
[2021-04-08] MEDS ORDERED: HYDROCODON-ACE1 EA10 PO (09:08)
[2021-04-08 09:48] VITALS: BP 169/80
--- NOTE | 2021-04-08 10:45 | NUR ---
Arrived to unit from ER vis stretcher in stable condition accompanied by hospital staff, moved to bed using lift board, oriented to unit, oriented to room, oriented to bed control, T/R with assist freq for C/C, cont of B/B with use of urinal/bedpan with assist and incont pads, awake/alert/oriented, voices no c/o pain/other discomfort at this time, call light/phone/water within reach, no s/s of acute distress observed.
[2021-04-08 10:59] LABS: MAGNESIUM - SERUM 1.8 mg/dL (1.8-2.4); THYROID STIMULATING HORMONE 3.87 uIU/mL (0.36-3.74)
[2021-04-08 11:01] LABS: CKMB 0.4 U/L (0.0-3.6); CREATINE KINASE 26 UL (21-232); TROPONIN-I 0.031 ng/mL (0.000-0.060)
[2021-04-08 15:58] VITALS: BP 154/58
--- NOTE | 2021-04-08 16:55 | NUR ---
IV out, resited to left posterior wrist with 22 ga x 1 attempt, flushes easily, call light/phone/water within reach, no s/s of acute distress observed.
[2021-04-08 17:04] LABS: CKMB 0.3 U/L (0.0-3.6); CREATINE KINASE 25 UL (21-232); TROPONIN-I 0.028 ng/mL (0.000-0.060)
--- NOTE | 2021-04-08 19:05 | NUR ---
PT RESTING IN ROOM WATCHING TV WITH AT BEDSIDE. SIDE RAILS UP X 2, CALL LIGHT WITHIN REACH, DENIES NEEDS, WILL CONTINUE TO MONITOR.
[2021-04-08 19:45] VITALS: BMI 62.6
[2021-04-08 20:25] VITALS: BP 140/51
--- NOTE | 2021-04-08 22:45 | NUR ---
BILATERAL LEGS DRESSED. PT TOLERATED WELL.
[2021-04-08 22:51] VITALS: BP 165/52
[2021-04-08 23:56] LABS: CKMB 0.2 U/L (0.0-3.6); CREATINE KINASE 23 UL (21-232); TROPONIN-I 0.024 ng/mL (0.000-0.060)
--- NOTE | 2021-04-09 02:12 | NUR ---
PAGEAmirah UMAÑA TO CONFIRM LASIX ORDER
--- NOTE | 2021-04-09 02:31 | NUR ---
PT UP TO CHAIR WITH ASSISTANCE. PT REQUESTING SOMETHING TO HELP BOWELS MOVE AFTER TX WITH MORPHINE. PROVIDED PRUNE JUICE AND SPRITE. PT SITTING IN CHAIR DRINKING NOW.
[2021-04-09 05:12] LABS: BASOPHILS 0.4 % (0-2); EOSINOPHILS 5.1 % (0-7); HEMATOCRIT 28.9 % (42.0-54.0); HEMOGLOBIN 9.4 g/dL (13.5-17.5); LYMPHOCYTES 15.4 % (15-50); MCH 30.1 pg (26.0-34.0); MCHC 32.6 g/dL (31.0-37.0); MCV 92.6 fL (80.0-100.0); MEAN PLATELET VOLUME 8.1 fL (7.4-10.4); MONOCYTES 9.4 % (2-11); NEUTROPHILS 69.7 % (40-80); PLATELET COUNT 237 10x3/uL (130-400); RBC 3.12 10x6/uL (4.20-6.10); RDW 17.5 % (11.5-14.5)
[2021-04-09 05:27] LABS: ALBUMIN 2.6 g/dL (3.4-5.0); ANION GAP 11.9 mmol/L (8-16); BILIRUBIN - TOTAL 0.83 mg/dL (0.2-1.3); CALCIUM 8.3 mg/dL (8.5-10.1); CARBON DIOXIDE 29.5 mmol/L (21.0-32.0); CREATININE - SERUM 2.4 mg/dL (0.6-1.3); POTASSIUM - SERUM 4.4 mmol/L (3.5-5.1); PROTEIN - SERUM 6.5 g/dL (6.4-8.2)
[2021-04-09 06:34] VITALS: BP 125/47
[2021-04-09 12:28] VITALS: BP 182/77
[2021-04-09 15:00] VITALS: BP 168/68
[2021-04-09 16:40] LABS: % SATURATION 11 % (15-55); IRON 26 ug/dl (35-150); TOTAL IRON BIND CAPACITY 229 ug/dl (260-445); UNSAT IRON BIND CAPACITY 203 ug/dl (150-375)
[2021-04-09 19:45] VITALS: BP 183/68
--- NOTE | 2021-04-09 22:13 | NUR ---
PT TAKING IV LASIX FOR CHF DIURESING. HE IS C/O HAVING TO URINATE REPEATEDLY AND SOMETIMES CANNOT EVEN VOID IN URINAL, BUT BE INCONTINENT. C/O HAVING TO TAKE LASIX BID. C/O NOT HAVING BM IN 3 DAYS. CALL TO CHASIDY HERNANDEZ APN AND ORDERS RECIEVED FOR ELIZABETH CATHETER TO BE PLACED AND FOR COLACE AND SENOKOT S TO BE GIVEN FOR CONSTIPATION ISSUES.
--- NOTE | 2021-04-09 23:00 | NUR ---
PLACED 18FR ELIZABETH CATHETER WITH STERILE TECHNIQUE. IMMEDIATE URINE RETURN.
[2021-04-10 00:27] VITALS: BP 171/63
--- NOTE | 2021-04-10 01:57 | NUR ---
PT HAS BEEN REGIONAL EDUCATION MANAGER LIGHT MULTIPLE TIMES WITH RANDOM REQUESTS. C/O PAIN. MEDICATED WITH MORPHINE 2 MG SIVP. SR UP X 2, CALL LIGHT IN REACH.
[2021-04-10 04:55] VITALS: BP 198/89
--- NOTE | 2021-04-10 06:00 | NUR ---
ALLAM MEDS GIVEN. IV LASIX TO RFA. PT HAS BEEN ON/OFF BEDPAN WITH ONLY FLATUS. CAN BE VERY DEMANDING. CALL LIGHT IN REACH. BED LOW AND LOCKED. REPORT TO ONCOMING NURSE.
[2021-04-10 08:02] VITALS: BP 163/69
--- NOTE | 2021-04-10 09:57 | CN ---
PATIENT NAME:JACKY BARILLAS MEDICAL RECORD: [id number] : 57 LOCATION:D. D.2109 ADMIT DATE: 04/08/21 ACCOUNT: [id number] CONSULTING PHYSICIAN: VARGHESE BRAGA MD REFERRING PHYSICIAN: LISSA DIALLO MD DATE OF CONSULTATION: 04/09/2021 HISTORY OF PRESENT ILLNESS: A 66-year-old gentleman with no known history of coronary artery disease. He has a history of hypertension, DVT, morbid obesity with weight greater than 500 pounds, also obstructive sleep apnea, admitted with increased shortness of breath. Some symptomatology, could be myopathic in origin with orthopnea, PND, although, this is obviously a difficult concern given his overall obesity status, we are asked to see him concerning his cardiovascular status. Cardiac enzymes are negative at this point. Also has renal insufficiency with a creatinine of 2.4. PAST MEDICAL HISTORY: Includes history of; 1. Morbid obesity. 2. Hypertension. 3. Chronic renal insufficiency. 4. Dyslipidemia. 5. DVT. 6. Recurrent cellulitis. ALLERGIES: SULFA. CHRONIC MEDICATIONS: Include Aga 180 mg p.o. daily, Flomax 0.4 daily, DuoNeb q.2 p.r.n., Robaxin 500 mg p.o. b.i.d., Xarelto 10 mg p.o. daily, lisinopril 20 daily, Pristiq 100 mg p.o. daily, [place] as needed, Singulair 10 mg p.o. at bedtime. SOCIAL HISTORY: Lives at home currently. primary caregiver. Nonsmoker, nondrinker. REVIEW OF SYSTEMS: The patient reports easy bruising but reports no swollen glands. The patient reports no fever, no night sweats, no significant weight gain, no significant weight loss. No significant exercise tolerance. The patient reports no dry eyes, no irritation, no vision change. Patient reports no difficulty hearing and no ear pain. Patient reports no frequent nose bleeds or nose and sinus problems. Patient reports on arm pain on exertion. No shortness of breath while lying down. No history of heart murmur. Patient reports no cough, no wheezing or coughing up blood. Patient reports no abdominal pain, no vomiting. Normal appetite. No diarrhea and not vomiting blood. No nausea and no constipation. Patient reports no incontinence. No difficulty urinating. No hematuria. No increased frequency. Patient reports no muscle aches. No weakness, no arthralgias, no back pain. No swelling of the extremities. Patient reports no abnormal mole, no jaundice, no rashes. Reports no loss of consciousness. No weakness and no numbness. No seizures, dizziness, or headaches. The patient reports no depression, no sleep disturbance, feeling safe in a relationship and no alcohol abuse. Patient reports on fatigue. Reports no runny nose or sinus pressure. No itching, no hives, and no frequent sneezing. PHYSICAL EXAMINATION: GENERAL: No acute distress, does appear dyspneic, although I suspect this is CONSULT REPORT [id number] JACKY BARILLAS his baseline, alert and oriented. VITAL SIGNS: 125/47, pulse 49 and regular. HEENT: Normocephalic, atraumatic. NECK: No bruits noted. CARDIOVASCULAR: Heart tones are distant. LUNGS: Decreased breath sounds with expiratory wheezes. ABDOMEN: Soft and nontender. EXTREMITIES: Pulses are decreased 1+. There is 1+ edema, some erythema to both legs just above the ankle. NEUROLOGIC: Grossly intact. IMPRESSION: Certainly symptoms worrisome for cardiomyopathy, although I cannot totally exclude exacerbation by his size. We will check echocardiographic study to assess LV function and any valvular pathology. Further recommendation based on the above. TRANSINT:[id number] Voice Confirmation ID: [id number] DOCUMENT ID: [id number] VARGHESE BRAGA MD at 0957 CC: [id number] DICTATION DATE: 04/09/21 1106 GUN TESTER: 04/09/21 1134 ADM IN [place] [id number] [place] [address]
--- NOTE | 2021-04-10 09:57 | EC ---
PATIENT:JACKY BARILLAS DATE OF SERVICE: 04/08/21 SEX: M MEDICAL RECORD: [id number] DATE OF : 57 LOCATION:D.M2 D.211 AGE OF PATIENT: 66 ADMISSION DATE: 04/08/21 REFERRING PHYSICIAN: INTERPRETING PHYSICIAN: VARGHESE BRAGA MD ECHOCARDIOGRAM REPORT ECHO CHARGES 4 ECHO COMPLETE Date: 04/08/21 CLINICAL DIAGNOSIS: SOB/EDEMA/MILD CHF HX OF VSD REPAIR AND MV REPAIR ECHOCARDIOGRAPHIC MEASUREMENTS (adult normal given) AC root (d.<3.7cm) 5.0 cm LV Septum d (<1.2 cm> 1.8 cm Valve Excursion 2.0 cm LV Septum (systole) 2.3 cm Left Atria (s.<4.0cm> 4.5 cm LVPW d(<1.2cm) 2.0 cm RV (d.<2.3cm) 5.2 cm LVPW (sytole) 2.3 cm LV diastole(<5.6CM) 6.8 cm MV E-F(>70mm/sec) cm LV systole 4.3 cm LVOT Diameter 2.4 cm MV exc.(>10mm) 1.5 cm Est.ejection fraction (50-75%) % DOPPLER: LVIT cm/sec A 66.0 cm/sec E 118.0 cm/sec LA cm/sec RVSP 46 mmHg LVOT 117 cm/sec AOP1/2T m/s Asc. Ao 189 cm/sec RVOT 118 cm/sec RA cm/sec PA 165 cm/sec AV Gradient Peak 14.26mmHg AV Mean 8.55 mmHg AV Area 2.4 cm MV Gradient Peak 7.83 mmHg MV Mean 2.27 mmHg MV Area cm COMMENTS: Manual Lathe Machinist: 2 MONO PRUITT Head Grinder: 3 Dr. Reynoso TAPE# PACS Pericardial Effusion N DATE OF SERVICE: Technically difficult study due to the patient's underlying body habitus and morbid obesity. LVH is present. LV internal dimension is dilated at 6.8 cm. Difficult to fully assess focal wall motion abnormality however in leads present. EF appears to be normal at 50% or better. No evidence of aortic stenosis by Doppler interrogation. Left atrium is dilated at 4.5 cm. Mitral valve shows no prolapse. No more than mild MR. Right side is grossly normal. No more than ECHOCARDIOGRAM REPORT [id number] JACKY BARILLAS TR. TRANSINT:[id number] Voice Confirmation ID: [id number] DOCUMENT ID: [id number] VARGHESE BRAGA MD at 0957 CC: [id number] DICTATION DATE: 04/09/21 1137 PSYCHIATRIC NURSE PRACTITIONER: 04/09/21 1233 ADM IN [facility] [address] [id number]
[2021-04-10 09:58] LABS: ALBUMIN 2.9 g/dL (3.4-5.0); ANION GAP 12.5 mmol/L (8-16); BILIRUBIN - TOTAL 0.87 mg/dL (0.2-1.3); CALCIUM 8.8 mg/dL (8.5-10.1); CREATININE - SERUM 2.4 mg/dL (0.6-1.3); POTASSIUM - SERUM 4.5 mmol/L (3.5-5.1); PROTEIN - SERUM 7.4 g/dL (6.4-8.2)
[2021-04-10 10:02] LABS: BASOPHILS 0.4 % (0-2); EOSINOPHILS 6.5 % (0-7); HEMATOCRIT 32.4 % (42.0-54.0); HEMOGLOBIN 10.4 g/dL (13.5-17.5); LYMPHOCYTES 11.7 % (15-50); MCH 29.8 pg (26.0-34.0); MCHC 32.2 g/dL (31.0-37.0); MCV 92.5 fL (80.0-100.0); MEAN PLATELET VOLUME 7.9 fL (7.4-10.4); MONOCYTES 6.6 % (2-11); NEUTROPHILS 74.8 % (40-80); PLATELET COUNT 272 10x3/uL (130-400); RDW 17.3 % (11.5-14.5); WBC 7.1 10x3/uL (4.8-10.8)
[2021-04-10 11:30] VITALS: BP 165/61
[2021-04-10 12:06] VITALS: BMI 62.4
--- NOTE | 2021-04-10 13:04 | NUR ---
BACK FROM DIALYSIS. DC PLANS GIVEN. UNDERSTANDING VOICED. ESCORTED TO CAR BY W/C.
[2021-04-10 16:00] VITALS: BP 169/62
--- NOTE | 2021-04-10 17:41 | NUR ---
THANK YOU FOR S REFERRAL. NOTIFIED ALTAF WELDON RN, CUSTODIAN ATHLETIC EQUIPMENT EARLIER TODAY THAT WILL SUBMIT TO INSURANCE FOR PRE AUTH ON 04/11/2021 IF CLINICALLY APPROPRIATE. -ANNA MALIK LPN, CLINICAL LIAISON
--- NOTE | 2021-04-10 19:30 | NUR ---
PT IN BED, AAO X 4, RESP EVEN AND UNLABORED, NO DISTRESS NOTED, CL IN REACH, SR UP X 2.
[2021-04-10 20:00] VITALS: BP 167/54
[2021-04-11] VITALS: BP 186/65
[2021-04-11 04:00] VITALS: BP 135/59
--- NOTE | 2021-04-11 04:36 | NUR ---
I have reviewed this patient and I concur with the Shift Assessment completed by the Licensed Practical Nurse today this shift.
[2021-04-11 07:57] LABS: BASOPHILS 0.2 % (0-2); EOSINOPHILS 8.4 % (0-7); HEMATOCRIT 28.7 % (42.0-54.0); HEMOGLOBIN 9.2 g/dL (13.5-17.5); IMMATURE GRANULOCYTES 0.2 % (0-5); LYMPHOCYTE ABS# 1.11 10x3/uL (1.32-3.57); LYMPHOCYTES 19.4 % (15-50); MCHC 32.1 g/dL (31.0-37.0); MCV 93.5 fL (80.0-100.0); MEAN PLATELET VOLUME 9.7 fL (7.4-10.4); MONOCYTES 6.3 % (2-11); NEUTROPHIL ABS# 3.74 10x3/uL (1.78-5.38); NEUTROPHILS 65.5 % (40-80); PLATELET COUNT 235 10x3/uL (130-400); RBC 3.07 10x6/uL (4.20-6.10); RDW 17.4 % (11.5-14.5); WBC 5.7 10x3/uL (4.8-10.8)
--- NOTE | 2021-04-11 08:15 | NUR ---
BRANT BERMAN NOTIFIED OF BRADYCARDIA. HR 42.
[2021-04-11 08:21] LABS: ANION GAP 11.3 mmol/L (8-16); CALCIUM 8.8 mg/dL (8.5-10.1); CARBON DIOXIDE 30.2 mmol/L (21.0-32.0); CREATININE - SERUM 2.4 mg/dL (0.6-1.3); POTASSIUM - SERUM 4.5 mmol/L (3.5-5.1)
--- NOTE | 2021-04-11 08:24 | NUR ---
PATIENT WITH PRESCREEN ORDER. 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 ONCE THIS IS IN THE CHART, WE CAN LOOK CLOSER TO MAKE SURE HE MEETS CRITERIA BEFORE WE SUBMIT. I WILL TALK TO MAZIN LEYVA, OCCUPATIONAL THERAPIST TO SEE IF WE CAN HAVE HIM MOVED UP NEAR THE TOP OF THE LIST. THANK YOU FOR THE REFERRAL RANDY BARBOZA RN CLINICAL LIAISON, INPATIENT REHAB.
[2021-04-11 08:39] VITALS: BP 115/46
[2021-04-11 13:38] VITALS: BP 147/54
[2021-04-11 16:22] VITALS: Ht 190.5 cm; Wt 202.3 kg
[2021-04-11 16:30] VITALS: BP 150/72
--- NOTE | 2021-04-11 17:30 | NUR ---
HR 33 CALLED TO BRANT WHALEY. NEW ORDERS GIVEN.
--- NOTE | 2021-04-11 19:30 | NUR ---
PT IN BED, AAO X 3, RESP EVEN AND UNLABORED, NO DISTRESS NOTED, CL IN REACH, SR UP X 2.
[2021-04-11 19:51] VITALS: BP 123/43
[2021-04-12] VITALS (7 sets, daily range): BP systolic 144–186; BP diastolic 54–86
--- NOTE | 2021-04-12 03:00 | NUR ---
I have reviewed this patient and I concur with the Shift Assessment completed by the Licensed Practical Nurse today this shift.
--- NOTE | 2021-04-12 06:29 | NUR ---
22G STARTED TO LEFT FOREARM AT THIS TIME, OLD IV INFILTRATED AND D/C'D AT THIS TIME.
[2021-04-12 08:29] LABS: BASOPHILS 0.5 % (0-2); EOSINOPHILS 5.8 % (0-7); HEMATOCRIT 30.9 % (42.0-54.0); HEMOGLOBIN 10.4 g/dL (13.5-17.5); LYMPHOCYTES 15.5 % (15-50); MCH 31.1 pg (26.0-34.0); MCHC 33.7 g/dL (31.0-37.0); MCV 92.2 fL (80.0-100.0); MONOCYTES 9.4 % (2-11); NEUTROPHILS 68.8 % (40-80); PLATELET COUNT 269 10x3/uL (130-400); RBC 3.35 10x6/uL (4.20-6.10); RDW 17.1 % (11.5-14.5); WBC 6.8 10x3/uL (4.8-10.8)
[2021-04-12 08:51] LABS: ALBUMIN 2.8 g/dL (3.4-5.0); ANION GAP 11.9 mmol/L (8-16); BILIRUBIN - TOTAL 0.75 mg/dL (0.2-1.3); CALCIUM 8.9 mg/dL (8.5-10.1); CARBON DIOXIDE 28.6 mmol/L (21.0-32.0); CREATININE - SERUM 2.2 mg/dL (0.6-1.3); POTASSIUM - SERUM 4.5 mmol/L (3.5-5.1); PROTEIN - SERUM 7.2 g/dL (6.4-8.2)
--- NOTE | 2021-04-12 16:54 | NUR ---
OT NOTE: PT SITTING UP IN CHAIR. VERY HOT IN PTS ROOM. ASKED IF HE NEEDED THERAPIST TO TURN AIR DOWN AND IF IT WAS MAKING IT HARDER ON HIS BREATHING. SAID THAT HE IS ALWAYS COLD DUE BLOOD THINNERS. PT STATES THAT HE HAS BEEN SITTING UP IN CHAIR MOST OF DAY. PERFORMED SEVERAL SIT TO STAND EXS FOR STRENGTH AND ENDURANE.. AND AROM EXS. PT SOB WITH MIN EXERTION.. REPORTS THAT PT HAS TRANSFERRED TO AND FROM COMMODE APPROX 3 TIMES WITH SPV TODAY..PT IS DOING BETTER FUNCTIONALLY , HOWEVER, REMAINS WEAK, SOB, AND POOR ENDURANCE. MAZIN LEYVA, OTR/L [phone]
--- NOTE | 2021-04-12 19:30 | NUR ---
PT IN BED, AAO X 4, RESP EVEN AND UNLABOREDL NO DISTRESS NOTED, CL IN REACH, SR UP X 2.
[2021-04-13] VITALS (8 sets, daily range): BP systolic 116–172; BP diastolic 58–77
--- NOTE | 2021-04-13 04:47 | NUR ---
I have reviewed this patient and I concur with the Shift Assessment completed by the Licensed Practical Nurse today this shift.
[2021-04-13 06:30] LABS: BASOPHILS 0.4 % (0-2); HEMATOCRIT 28.8 % (42.0-54.0); HEMOGLOBIN 9.5 g/dL (13.5-17.5); LYMPHOCYTES 13.5 % (15-50); MCH 30.3 pg (26.0-34.0); MCV 91.7 fL (80.0-100.0); MEAN PLATELET VOLUME 7.9 fL (7.4-10.4); MONOCYTES 9.1 % (2-11); PLATELET COUNT 268 10x3/uL (130-400); RBC 3.14 10x6/uL (4.20-6.10); RDW 17.1 % (11.5-14.5); WBC 6.8 10x3/uL (4.8-10.8)
[2021-04-13 06:49] LABS: ALBUMIN 2.6 g/dL (3.4-5.0); BILIRUBIN - TOTAL 0.65 mg/dL (0.2-1.3); CALCIUM 8.5 mg/dL (8.5-10.1); CARBON DIOXIDE 31.5 mmol/L (21.0-32.0); CREATININE - SERUM 2.2 mg/dL (0.6-1.3); POTASSIUM - SERUM 4.5 mmol/L (3.5-5.1); PROTEIN - SERUM 6.6 g/dL (6.4-8.2)
--- NOTE | 2021-04-13 09:19 | NUR ---
PT WITH COMPLAINT OF ELIZABETH BURNING AND HE WANTS IT OUT. EXPLAINED THAT WITH HISTORY OF BPH AND LASIX DOSING HE MAY BE UNABLE TO VOID AFTER REMOVED SO WAIT TO TALK WITH DOCTOR ON ROUNDS FOR GUIDANCE.
--- NOTE | 2021-04-13 11:08 | NUR ---
Nutrition Reassessment/Follow-up: Eating well. Diet: Low Na, Carb Consistent PO intake: 100% of meals No new wt; last wt: 500# (04/10) Labs noted: BUN 56, Cre 2.2, GFR 32, Glu 98, Alb 2.6 Meds noted: Florajen, Protonix, Senokot, Colace, Lasix, Ferrlecit, electrolyte protocol Nutrition Intervention: -Nutrition needs, Dx, & goals remain unchanged since initial assessment. -Need new wt. -RD will follow up within 5-7 days if pt still admitted.
--- NOTE | 2021-04-13 18:19 | NUR ---
OT NOTE: PT COMPLETED BED MOBILITY TASKS OF SIDE ROLLING WITH SBA IN ORDER TO RELIEVE PRESSURE. PT COMPLETED UB HYGIENE WITH SETUP FOR FACE AND HAND WASHING. PT COMPLETED BUE AROM EXS TOLERATED. CL IN REACH AND FAMILY AT BEDSIDE. [phone] THANK YOU,TANG HENDERSON
--- NOTE | 2021-04-13 19:30 | NUR ---
PT IN BED, AAO X 4, REPS EVEN AND UNLABORED, NO DISTRESS NOTED, CL IN REACH, SR UP X 2.
--- NOTE | 2021-04-14 05:02 | NUR ---
I have reviewed this patient and I concur with the Shift Assessment completed by the Licensed Practical Nurse today this shift.
[2021-04-14 05:28] VITALS: BP 111/66
[2021-04-14 06:54] LABS: BASOPHILS 0.5 % (0-2); EOSINOPHILS 7.5 % (0-7); HEMATOCRIT 29.1 % (42.0-54.0); HEMOGLOBIN 9.6 g/dL (13.5-17.5); LYMPHOCYTES 14.9 % (15-50); MCH 30.5 pg (26.0-34.0); MCV 92.4 fL (80.0-100.0); MONOCYTES 6.6 % (2-11); NEUTROPHILS 70.5 % (40-80); PLATELET COUNT 289 10x3/uL (130-400); RBC 3.15 10x6/uL (4.20-6.10); RDW 16.6 % (11.5-14.5); WBC 7.2 10x3/uL (4.8-10.8)
[2021-04-14 07:07] LABS: ALBUMIN 2.7 g/dL (3.4-5.0); ANION GAP 12.1 mmol/L (8-16); BILIRUBIN - TOTAL 0.77 mg/dL (0.2-1.3); CALCIUM 8.7 mg/dL (8.5-10.1); CARBON DIOXIDE 28.9 mmol/L (21.0-32.0); CREATININE - SERUM 2.3 mg/dL (0.6-1.3); PROTEIN - SERUM 6.9 g/dL (6.4-8.2)
--- NOTE | 2021-04-14 08:08 | NUR ---
PT RECEIVED AWAKE AND ALERT, COMPLAINING OF NEEDING MIRALAX. DOSE GIVEN ALONG WITH PROCTOFOAM. ELIZABETH EMPTIED.
[2021-04-14 09:00] VITALS: BP 155/65
--- NOTE | 2021-04-14 14:12 | MORECARE ---
CASE MANAGEMENT DISCHARGE SUMMARY PATIENT: JACKY BARILLAS UNIT: [id number] ADM DATE: 04/08/21 AGE: 66 : 57 SEX: M ROOM/BED: D.211 AUTHOR: ZARA,DOC PHYSICIAN: REFERRING PHYSICIAN: LISSA DIALLO MD DATE OF SERVICE: 04/14/21 Case Management Discharge Planning Summary COMMENTS ENTERED DATE: 04/14/21 14:01 CT COMMENT TYPE: Discharge Planning REVIEWER: Yi Fajardo referral was sent to [facility] 04/13/21, checked on it today and Amelia stated that are pending auth DCP REVIEW SUMMARY ANTICIPATED D/C DATE: EXPECTED LOS : CASE STATUS: DCP Initiated INITIAL REVIEW: 04/08/2021 INITIAL REVIEWER: Yi Fajardo FINAL DISCHARGE DISPOSITION: : FINAL REVIEWER: FINAL REVIEW DATE: DCP [facility] Questions & Answers QUESTION: ANSWER : PATIENT: JACKY BARILLAS ENCOUNTER: [id number] MEDICAL RECORD#: [id number] ADMISSION DATE: 04/08/2021 DISCHARGE DATE: ATTENDING MD: LISSA HICKEY : AGE: 66 MARITAL STATUS: M DC PLAN ID: [id number] FACILITY: [facility] PRINTED ON: 04/14/21 14:12 CT All edits/amendments must be made on the electronic document DICTATION DATE: 04/14/211411 OPERA SINGER: NICCI 04/14/211411 RPT#: [id number] DC DATE: STATUS: ADM IN [facility] [address] [place] [address] END OF REPORT
--- NOTE | 2021-04-14 16:55 | NUR ---
OT NOTE: PT COMPLETED SUPINE TO SIT WITH SBA. PT COMPLETED EOB SITTING WITH SBA. PT COMPLETED BED TO BSC TSF WITH SBA. PT COMPLETED BUE AROM EXS TOLERATED. PT STATED HE DID NOT GET ANY SLEEP LAST NIGH SECONDARY TO ROOM TEMP AND NOISY HALLWAY. NURSING AWARE. 1412-31 THANK YOU,TANG HENDERSON
--- NOTE | 2021-04-14 17:48 | NUR ---
ELIZABETH REMOVED AND URINAL AT BEDSIDE
--- NOTE | 2021-04-14 19:00 | NUR ---
REPORT RECEIVED. PATIENT IS AAOX4, SITTING UP IN CHAIR. NO S/S OF DISTRESS OBSERVED, RR EVEN AND UNLABORED ON 3L O2 VIA NC. PIV TO RT FA, INFUSING IRON. PATIENT DENIES FURTHER NEEDS AT THIS TIME. CL IN REACH, BED LOCKED AND LOWERED. CONTACT PRECAUTIONS MAINTAINED. WILL CPOC.
[2021-04-14 20:47] VITALS: BP 148/69
--- NOTE | 2021-04-14 21:31 | NUR ---
WRAPPED IV SITE, TOWELS AND BATHING SUPPLIES PROVIDED. PATIENT ASSISTING WITH SHOWER.
[2021-04-15 00:43] VITALS: BP 161/70
--- NOTE | 2021-04-15 01:00 | NUR ---
I have reviewed this patient and I concur with the Shift Assessment completed by the Licensed Practical Nurse today this shift.
[2021-04-15 05:37] VITALS: BP 152/43
--- NOTE | 2021-04-15 06:04 | NUR ---
PATIENT INDUSTRIAL PSYCHOLOGIST LIGHT TO INFORM NURSE THAT HIS ROOM IS HOT. PATIENT HAS BEEN ON THE CALL LIGHT FOR NUMEROUS THINGS THROUGHOUT THE NIGHT. EXPLAINED TO PATIENT A WORK ORDER WILL BE PUT IN FOR HIS A/C AND SUGGESTED HE LEAVE HIS DOOR OPEN SO THAT THE ROOM COULD AIR. PATIENT HAS SHUT DOOR. BROUGHT IN A FAN TO HELP WITH AIR CIRCULATION AND PATIENT STATES, "IN MY 66 YEARS I HAVE NEVER BEEN SO MISERABLE AND BELITTLED, ESPECIALLY BY A HOSPITAL". HE THEN PROCEEDED TO RIP HIS TELEMETRY OFF AND SAID IT'S TOO HOT TO WEAR. CALLED MONITORS TO INFORM THEM. PATIENT DENIES FURTHER NEEDS AT THIS TIME. CL IN REACH. BED LOCKED AND LOWERED. WILL CPOC.
[2021-04-15 06:20] LABS: BASOPHILS 0.5 % (0-2); EOSINOPHILS 5.7 % (0-7); HEMATOCRIT 29.2 % (42.0-54.0); HEMOGLOBIN 9.7 g/dL (13.5-17.5); LYMPHOCYTES 13.9 % (15-50); MCH 30.6 pg (26.0-34.0); MCHC 33.3 g/dL (31.0-37.0); MEAN PLATELET VOLUME 8.1 fL (7.4-10.4); NEUTROPHILS 71.9 % (40-80); PLATELET COUNT 256 10x3/uL (130-400); RBC 3.17 10x6/uL (4.20-6.10); RDW 16.9 % (11.5-14.5); WBC 7.1 10x3/uL (4.8-10.8)
[2021-04-15 06:29] LABS: ALBUMIN 2.6 g/dL (3.4-5.0); BILIRUBIN - TOTAL 0.56 mg/dL (0.2-1.3); CALCIUM 8.7 mg/dL (8.5-10.1); CARBON DIOXIDE 31.2 mmol/L (21.0-32.0); CREATININE - SERUM 2.5 mg/dL (0.6-1.3); POTASSIUM - SERUM 4.2 mmol/L (3.5-5.1); PROTEIN - SERUM 6.7 g/dL (6.4-8.2)
--- NOTE | 2021-04-15 06:31 | NUR ---
PATIENT CALLED THIS NURSE BACK TO ROOM TO STATE HE NEEDS TO SPEAK TO CASE MANAGEMENT. STATED TO PATIENT I WILL PASS THE MESSAGE ALONG.
--- NOTE | 2021-04-15 07:00 | NUR ---
RECEIVED REPORT. ASSUMED CARE OF PATIENT. CALL LIGHT WITHIN REACH. 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 WHITE BOARD UPDATED, BEDSIDE SHIFT REPORT COMPLETE. NO DISTRESS.
--- NOTE | 2021-04-15 07:16 | NUR ---
FSBS 101. NO INSULIN PER SLIDING SCALE.
[2021-04-15 09:17] VITALS: BP 124/70
[2021-04-15 11:57] VITALS: BP 161/71
--- NOTE | 2021-04-15 13:00 | NUR ---
PT MOVED TO 2105 DUE TO AIR CONDITIONER NOT WORKING IN 2109.
--- NOTE | 2021-04-15 15:52 | NUR ---
MEDICATED FOR NAUSEA AT THIS TIME. NO DISTRESS. SB, 58 ON TELEMETRY.
--- NOTE | 2021-04-15 16:17 | NUR ---
FSBS 146. NO INSULIN PER SLIDING SCALE. MEDICATED WITH XANAX AT THIS TIME FOR ANXIETY.
[2021-04-15 19:03] VITALS: BP 107/71
--- NOTE | 2021-04-15 19:45 | NUR ---
RECEIVED BEDSIDE REPORT. PT LAYING IN BED A&O X4. PIV TO RIGHT FOREARM PATENT AND SL, NO REDNESS OR SWELLING. O2 SAT 96% ON 3L VIA NC. +3 PITTING EDEMA TO BILAT LOWER EXTREM, GENERALIZED SCABS/SORES. YEAST PRESENT IN ABD FOLDS AND UPPER THIGH FOLDS. TELEMETRY IN PLACE, 55 FLUTTER. CONTACT ISOLATION PRECAUTIONS IN PLACE. BED LOW, CL IN REACH.
[2021-04-15 20:00] VITALS: BP 107/71
--- NOTE | 2021-04-16 00:24 | NUR ---
PT C/O PAIN, CALLED SEBASTIAN HERMOSILLO, NEW ORDERS ACKNOWLEDGED.
[2021-04-16 06:26] LABS: BASOPHILS 0.4 % (0-2); EOSINOPHILS 5.6 % (0-7); HEMATOCRIT 30.4 % (42.0-54.0); HEMOGLOBIN 10.1 g/dL (13.5-17.5); LYMPHOCYTES 14.5 % (15-50); MCH 30.4 pg (26.0-34.0); MCHC 33.2 g/dL (31.0-37.0); MCV 91.7 fL (80.0-100.0); MEAN PLATELET VOLUME 8.1 fL (7.4-10.4); MONOCYTES 8.3 % (2-11); NEUTROPHILS 71.2 % (40-80); PLATELET COUNT 268 10x3/uL (130-400); RBC 3.31 10x6/uL (4.20-6.10); RDW 16.9 % (11.5-14.5); WBC 7.2 10x3/uL (4.8-10.8)
--- NOTE | 2021-04-16 06:35 | NUR ---
BEDSIDE REPORT RECIEVED. NO CURRENT PAIN OR DISTRESS. RESP EVEN AND UNLABORED ON 2L O2. IV TO RIGHT FOREARM SALINE LOCKED.
[2021-04-16 06:40] LABS: ALBUMIN 2.7 g/dL (3.4-5.0); ANION GAP 12.7 mmol/L (8-16); BILIRUBIN - TOTAL 0.55 mg/dL (0.2-1.3); CALCIUM 8.8 mg/dL (8.5-10.1); CARBON DIOXIDE 29.5 mmol/L (21.0-32.0); CREATININE - SERUM 2.3 mg/dL (0.6-1.3); POTASSIUM - SERUM 4.2 mmol/L (3.5-5.1); PROTEIN - SERUM 6.9 g/dL (6.4-8.2)
[2021-04-16 07:44] VITALS: BP 158/51
--- NOTE | 2021-04-16 08:00 | NUR ---
PATIENT AWAKE AND ALERT SITTING ON EDGE OF BED. RESP EVEN AND UNLABORED. NO CURRENT RESP ISSUES. PATIENT ON ROOM AIR O2 SATS ARE 92. LUNG SOUNDS WET AND CRACKLED. HEART SOUNDS REGULAR RATE AND RYTHYM. PATIENT HAS ABDOMINAL SOUNDS HYPERACTIVE TO 4 QUADS. REDNESS AND IRRITATION TO GROIN AND UNDER STOMACH FOLDS NYSTAIN IN USE.
[2021-04-16 12:02] VITALS: BP 161/72
[2021-04-16 15:37] VITALS: BP 160/62
--- NOTE | 2021-04-16 19:00 | NUR ---
REPORT RECEIVED. PATIENT IS AAOX4, SITTING ON SIDE OF BED. NO S/S OF DISTRESS OBSERVED. RR EVEN AND UNLABORED ON 3L O2 VIA NC. PIV TO RT FA, PATENT, SL. PATIENT DENIES NEEDS AT THIS TIME. CL IN REACH, BED LOCKED AND LOWERED. AT BEDSIDE. WILL CPOC.
[2021-04-16 20:14] VITALS: BP 154/49
[2021-04-16 23:38] VITALS: BP 157/69
[2021-04-17 07:30] LABS: BASOPHILS 0.5 % (0-2); EOSINOPHILS 4.9 % (0-7); HEMATOCRIT 31.8 % (42.0-54.0); HEMOGLOBIN 10.4 g/dL (13.5-17.5); LYMPHOCYTES 11.7 % (15-50); MCH 29.8 pg (26.0-34.0); MCHC 32.7 g/dL (31.0-37.0); MCV 91.2 fL (80.0-100.0); MEAN PLATELET VOLUME 7.6 fL (7.4-10.4); MONOCYTES 6.6 % (2-11); NEUTROPHILS 76.3 % (40-80); PLATELET COUNT 304 10x3/uL (130-400); RBC 3.49 10x6/uL (4.20-6.10); RDW 16.7 % (11.5-14.5); WBC 8.5 10x3/uL (4.8-10.8)
--- NOTE | 2021-04-17 07:31 | NUR ---
I have reviewed this patient and I concur with the Shift Assessment completed by the Licensed Practical Nurse today this shift.
[2021-04-17 07:53] LABS: ANION GAP 9.9 mmol/L (8-16); CALCIUM 8.8 mg/dL (8.5-10.1); CARBON DIOXIDE 29.4 mmol/L (21.0-32.0); CREATININE - SERUM 2.3 mg/dL (0.6-1.3); POTASSIUM - SERUM 4.3 mmol/L (3.5-5.1)
--- NOTE | 2021-04-17 11:36 | MORECARE ---
CASE MANAGEMENT DISCHARGE SUMMARY PATIENT: JACKY BARILLAS UNIT: [id number] ADM DATE: 04/08/21 AGE: 66 : 57 SEX: M ROOM/BED: D.2106 AUTHOR: ZARA,DOC PHYSICIAN: REFERRING PHYSICIAN: LISSA DIALLO MD DATE OF SERVICE: 04/17/21 Case Management Discharge Planning Summary COMMENTS ENTERED DATE: 04/17/21 11:32 CT COMMENT TYPE: Discharge Planning REVIEWER: Cece Goodwin Updated clinical faxed to [facility] rehab. Amelia states they are awaiting auth. ENTERED DATE: 04/14/21 14:01 CT COMMENT TYPE: Discharge Planning REVIEWER: Yi Fajardo referral was sent to [facility] 04/13/21, checked on it today and Amelia stated that are pending auth DCP REVIEW SUMMARY ANTICIPATED D/C DATE: EXPECTED LOS : CASE STATUS: DCP Initiated INITIAL REVIEW: 04/08/2021 INITIAL REVIEWER: Yi Fajardo FINAL DISCHARGE DISPOSITION: : FINAL REVIEWER: FINAL REVIEW DATE: DCP [facility] Questions & Answers QUESTION: ANSWER : PATIENT: JACKY BARILLAS ENCOUNTER: [id number] MEDICAL RECORD#: [id number] ADMISSION DATE: 04/08/2021 DISCHARGE DATE: ATTENDING MD: LISSA HICKEY : AGE: 66 MARITAL STATUS: M DC PLAN ID: [id number] FACILITY: [facility] PRINTED ON: 04/17/21 11:36 CT All edits/amendments must be made on the electronic document DICTATION DATE: 04/17/21 1136 FAMILY LAW PARALEGAL: NICCI 04/17/21 1136 RPT#: [id number] DC DATE: STATUS: ADM IN [facility] [address] [place] [address] END OF REPORT
[2021-04-17 12:27] VITALS: BP 134/74
--- NOTE | 2021-04-17 12:51 | NUR ---
PATIENT REFUSES BATH OR SHOWER TODAY,
--- NOTE | 2021-04-17 15:50 | NUR ---
OT NOTE: PT COMPLETED ADL MOB WITH CGA. PT COMPLETED SIT TO STAND WITH CGA. PT COMPLETED FACE HYGIENE WITH SETUP. PT STATED HE TOOK A SHOWER THE PREVIOUS DAY AND SHOWER SETUP WAS DANGEROUS. [phone] THANK YOU,TANG HENDERSON
--- NOTE | 2021-04-17 19:37 | NUR ---
REPORT RECEIVED. PT A&O, UP IN BED TALKING ON PHONE WITH FAMILY. NO S/S OF DISTRESS OBSERVED. RR EVEN & UNLABORED ON 3L. AFLUTTER 42 ON TELE. LAST BM 04/16/21. IV TO R FA SL, PATENT, SWAB CAPS IN USE. BED LOCKED AND LOWERED, CL IN REACH. ASSESSMENT COMPLETE. WILL CONT POC.
[2021-04-17 23:07] VITALS: BP 143/59
[2021-04-18 00:52] VITALS: BP 138/66
[2021-04-18 04:30] VITALS: BP 109/55
[2021-04-18 06:35] LABS: BASOPHILS 0.4 % (0-2); EOSINOPHILS 4.7 % (0-7); HEMATOCRIT 29.6 % (42.0-54.0); HEMOGLOBIN 9.7 g/dL (13.5-17.5); LYMPHOCYTES 12.1 % (15-50); MCH 30.3 pg (26.0-34.0); MCHC 32.8 g/dL (31.0-37.0); MCV 92.4 fL (80.0-100.0); MONOCYTES 6.3 % (2-11); NEUTROPHILS 76.5 % (40-80); PLATELET COUNT 268 10x3/uL (130-400); RBC 3.21 10x6/uL (4.20-6.10); RDW 17.1 % (11.5-14.5)
[2021-04-18 06:41] LABS: ANION GAP 13.3 mmol/L (8-16); CALCIUM 8.3 mg/dL (8.5-10.1); CARBON DIOXIDE 27.8 mmol/L (21.0-32.0); CREATININE - SERUM 2.4 mg/dL (0.6-1.3); POTASSIUM - SERUM 4.1 mmol/L (3.5-5.1)
[2021-04-18 08:00] VITALS: BP 188/95
--- NOTE | 2021-04-18 08:00 | NUR ---
PT RECEIVED AWAKE AND ALERT IN CHAIR. ASKING FOR CLEAN GOWN. SOME COMPLAINTS OF NOT GETTING CALL LIGHT ANSWERED IN NIGHT. INSTRUCTED WOULD TRY AND BE PROMPT ABLE TODAY. ASKING FOR SOMETHING FOR A YEAST INFECTIONS TO ABD FOLDS. ALREADY WITH NYSTATIN POWDER BUT WANTING DIFLUCAN.
--- NOTE | 2021-04-18 09:44 | NUR ---
PT WITH OT/PT AND ALSO COMPLAINING TO THEM ABOUT GETTING HELP TO USE BATHROOM. THEY OFFERED TO HELP AND HE STATES THAT HE CAN GET TO BSC THAT IS EASY.
[2021-04-18 12:00] VITALS: BP 171/65
--- NOTE | 2021-04-18 12:14 | NUR ---
PT MOVED TO BSC AND GIVEN BATH WITH ASSIST FROM NURSE AND TECH. BACK TO BED AND ALL FOLDS CLEANED AND DRIED. NYSTATIN POWDER APPLIED AND PILLOW CASES PETTLED FOR COMFORT.
--- NOTE | 2021-04-18 14:51 | NUR ---
OT NOTE: PT COMPLETED ADL MOBILIT WITH SBA-CGA. PT COMPLETED TOILETING WITH SBA. PT STATED HE IS CONSTIPATED. PT REQUIRED SETUP FOR UB ADLS. PT STOOD HOLDING BSC BUCKET WHILE ATTEMPTING TO URINATE. PT COMPLETED SITTING BALANCE WITH SBA. PT HAD MANY COMPLIANTS. PT REQUESTING CATH...HOWEVER PT WAS ABLE [place] [facility] STATED COMBAT SYSTEMS OPERATOR HAS POOR RESPONSE TIME TO CALL LIGHT. NURSING NOTIFIED. [phone] THANK YOU,TANG HENDERSON
[2021-04-18 15:28] VITALS: BP 175/55
--- NOTE | 2021-04-18 18:04 | NUR ---
PT SCHEDULED FOR NUC MED LUNG SCAN BUT TABLE WEIGHT LIMIT OF 440 LBS AND PT WEIGHT 464.4 LB. CHASIDY KLEIN NOTIFIED. ORDERS FOR X1 DOSE OF LOVENOX AND WILL PLAN FOR MORNING TO CHECK WITH MD TO SEE WHAT CAN BE DONE.
--- NOTE | 2021-04-18 19:23 | NUR ---
REPORT RECEIVED. PT A&O, UP IN BED WITH AT BEDSIDE. NO S/S OF DISTRESS OBSERVED. RR EVEN & UNLABORED ON 2L. FLUTTER 63 ON TELE. IV TO R FA INFUSING IRON. BED LOCKED AND LOWERED, CL IN REACH. WILL CONT POC.
[2021-04-18 21:31] VITALS: BP 154/56
[2021-04-19 00:15] VITALS: BP 142/70
--- NOTE | 2021-04-19 01:12 | NUR ---
PT SHOWING MORE INITIATIVE IN SELF CARE TONIGHT. PT HAS USED URINAL BY HIMSELF WITHOUT STAFF ASSISTANCE. PT HAS BEEN TRANSFERING SELF FROM CHAIR TO BED TO BEDSIDE COMMODE. THOUGH PT CONT TO STAY ON THE CALL LIGHT, HE IS MAKING MORE OF AN EFFORT TO BE INDEPENDENT IN ADL'S.
--- NOTE | 2021-04-19 02:38 | NUR ---
VETERANS EMPLOYMENT REPRESENTATIVE OVERHEARD PT SPEAKING WITH SOMEONE ON PHONE ABOUT HIS CALL LIGHT NOT BEING ANSWERED THOUGH STAFF ARE FREQUENTLY IN THE ROOM ANSWERING HIS NUMEROUS CALL LIGHTS. PT HAS BEEN EDUCATED MULTIPLE TIMES ABOUT THE USE OF THE CALL LIGHT AND ENCOURAGED TO PERFORM MUCH OF HIS ADL'S BY HIMSELF LONG HE FEELS SAFE IN DOING SO. THOUGH PT HAS SHOWN SOME INITIATIVE IN DOING FOR HIMSELF TONIGHT, HE CONT TO UTILIZE THE CL TO HAVE STAFF PERFORM DUTIES THAT HE CAN PERFORM HIMSELF.
--- NOTE | 2021-04-19 04:30 | NUR ---
PT HAS BEEN HAVING STAFF HOLD URINAL WHILE PT URINATES, INCLUDING THIS SHIFT. FINANCIAL SALES ADVISOR ENTERED ROOM RESPONDING TO CALL LIGHT WHILE THIS NURSE WAS WITH ANOTHER PT. UPON ENTERING THE ROOM, FINANCIAL SALES ADVISOR SEES PT STANDING AT BEDSIDE COMMODE URINATING. WHEN FINANCIAL SALES ADVISOR ASKED PT WHAT HE NEEDED, PT STATED HE COULDN'T WAIT AND GOT UP AND URINATED BY HIMSELF.
[2021-04-19 04:58] LABS: BASOPHILS 0.4 % (0-2); EOSINOPHILS 4.5 % (0-7); HEMATOCRIT 31.9 % (42.0-54.0); HEMOGLOBIN 10.6 g/dL (13.5-17.5); LYMPHOCYTES 15.8 % (15-50); MCH 30.2 pg (26.0-34.0); MCHC 33.2 g/dL (31.0-37.0); MCV 91.1 fL (80.0-100.0); MEAN PLATELET VOLUME 7.9 fL (7.4-10.4); MONOCYTES 6.1 % (2-11); NEUTROPHILS 73.2 % (40-80); PLATELET COUNT 312 10x3/uL (130-400); RDW 16.9 % (11.5-14.5); WBC 8.4 10x3/uL (4.8-10.8)
[2021-04-19 05:05] VITALS: BP 171/56
[2021-04-19 05:28] LABS: CALC OSMOLALITY 300 mosm/kg (275-300); CARBON DIOXIDE 29.7 mmol/L (21.0-32.0); CHLORIDE - SERUM 103 mmol/L (98-107); CKMB 0.4 U/L (0.0-3.6); CREATINE KINASE 37 UL (21-232); CREATININE - SERUM 2.4 mg/dL (0.6-1.3); GLUCOSE 118 mg/dL (74-106); POTASSIUM - SERUM 4.7 mmol/L (3.5-5.1); SODIUM 142 mmol/L (136-145); TROPONIN-I 0.032 ng/mL (0.000-0.060); UREA NITROGEN 61 mg/dL (7-18); eGFR NON AFRICAN AMERICAN 29 mL/min (90-120)
[2021-04-19 07:32] VITALS: BP 171/66
--- NOTE | 2021-04-19 09:27 | NUR ---
PATIENT AAOX4 RESP EVEN AND NON LABORED, NO S/S OF DISTRESS, MEDICATIONS ADMISNITERED WITH NO COMPLICATIONS, CASE MANAGMENT DISCUSSED HOME HEALTH OR SKILLED FACILITY OPTIONS, INPATIENT REHAB WAS DENIED BY PATIENTS INSURANCE, NO FURTHER NEEDS AT THIS TIME, SAUNDRA JIMENEZ
--- NOTE | 2021-04-19 09:43 | MORECARE ---
CASE MANAGEMENT DISCHARGE SUMMARY PATIENT: JACKY BARILLAS UNIT: [id number] ADM DATE: 04/08/21 AGE: 66 : 57 SEX: M ROOM/BED: D.2106 AUTHOR: ZARA,DOC PHYSICIAN: REFERRING PHYSICIAN: LISSA DIALLO MD DATE OF SERVICE: 04/19/21 Case Management Discharge Planning Summary COMMENTS ENTERED DATE: 04/19/21 9:30 CT COMMENT TYPE: Discharge Planning REVIEWER: Cece Goodwin CM met with patient and to discuss decision on SNF. We also discussed home health option. They have not made a decision yet. I informed them that he is ready for discharge and they need a discharge disposition. I encouraged SNF for safety reasons. Patient asks me to return at a later time. He states his PCP is Dr. Rodriguez. States he has 2 BSC, walker, rollator walker, scooter, shower chair, grab bars in the shower. states he is able to get to his wheelchair into the car, but has difficulty with this because it's a [employer] and cannot get in and out well. They are current with [facility], . At this time patient and spouse are both unsure if he can go home with home health or needs a SNF. He asks again why he cannot go downstairs for rehab and I informed them that his insurance has denied inpatient rehab. CM will meet again with him this afternoon. ENTERED DATE: 04/17/21 11:32 CT COMMENT TYPE: Discharge Planning REVIEWER: Cece Goodwin Updated clinical faxed to [facility]. Amelia states they are awaiting auth. ENTERED DATE: 04/14/21 14:01 CT COMMENT TYPE: Discharge Planning REVIEWER: Yi Fajardo referral was sent to [facility] 04/13/21, checked on it today and Amelia stated that are pending auth DCP REVIEW SUMMARY ANTICIPATED D/C DATE: EXPECTED LOS : CASE STATUS: DCP Initiated INITIAL REVIEW: 04/08/2021 INITIAL REVIEWER: Yi Fajardo FINAL DISCHARGE DISPOSITION: : FINAL REVIEWER: FINAL REVIEW DATE: [facility] Questions & Answers QUESTION: ANSWER : PATIENT: JACKY BARILLAS ENCOUNTER: [id number] MEDICAL RECORD#: [id number] ADMISSION DATE: 04/08/2021 DISCHARGE DATE: ATTENDING MD: LISSA HICKEY : AGE: 66 MARITAL STATUS: M DC PLAN ID: [id number] FACILITY: [facility] PRINTED ON: 04/19/21 9:43 CT All edits/amendments must be made on the electronic document DICTATION DATE: 04/19/21942 ECOLOGY TEACHER: NICCI 04/19/21942 RPT#: [id number] DC DATE: STATUS: ADM IN [facility] [address] [place] [address] END OF REPORT
--- NOTE | 2021-04-19 10:05 | MORECARE ---
CASE MANAGEMENT DISCHARGE SUMMARY PATIENT: JACKY BARILLAS UNIT: [id number] ADM DATE: 04/08/21 AGE: 66 : 57 SEX: M ROOM/BED: D.2106 AUTHOR: ZARA,DOC PHYSICIAN: REFERRING PHYSICIAN: LISSA DIALLO MD DATE OF SERVICE: 04/19/21 Case Management Discharge Planning Summary COMMENTS ENTERED DATE: 04/19/21 10:01 CT COMMENT TYPE: Discharge Planning REVIEWER: Cece Goodwin CM met again with patient and he would like home health with [facility]. [facility]. I called Rosa M and she states Genna Robert is his sample case porter. I called Genna at [phone] and left a message on her voice mail concerning this with my call back number. ENTERED DATE: 04/19/21 9:30 CT COMMENT TYPE: Discharge Planning REVIEWER: Cece Goodwin CM met with patient and to discuss decision on SNF. We also discussed home health option. They have not made a decision yet. I informed them that he is ready for discharge and they need a discharge disposition. I encouraged SNF for safety reasons. Patient asks me to return at a later time. He states his PCP is Dr. Rodriguez. States he has 2 BSC, walker, rollator walker, scooter, shower chair, grab bars in the shower. states he is able to get to his wheelchair into the car, but has difficulty with this because it's a [employer] and cannot get in and out well. They are current with [facility] . At this time patient and spouse are both unsure if he can go home with home health or needs a SNF. He asks again why he cannot go downstairs for rehab and I informed them that his insurance has denied inpatient rehab. CM will meet again with him this afternoon. ENTERED DATE: 04/17/21 11:32 CT COMMENT TYPE: Discharge Planning REVIEWER: Cece Goodwin Updated clinical faxed to [facility] rehab. Amelia states they are awaiting auth. ENTERED DATE: 04/14/21 14:01 CT COMMENT TYPE: Discharge Planning REVIEWER: Yi Fajardo referral was sent to [facility] 04/13/21, checked on it today and Amelia stated that are pending auth DCP REVIEW SUMMARY ANTICIPATED D/C DATE: EXPECTED LOS : CASE STATUS: DCP Initiated INITIAL REVIEW: 04/08/2021 INITIAL REVIEWER: Yi Fajardo FINAL DISCHARGE DISPOSITION: : FINAL REVIEWER: FINAL REVIEW DATE: DCP Focus Questions & Answers QUESTION: ANSWER : PATIENT: JACKY BARILLAS ENCOUNTER: [id number] MEDICAL RECORD#: [id number] ADMISSION DATE: 04/08/2021 DISCHARGE DATE: ATTENDING MD: LISSA HICKEY : AGE: 66 MARITAL STATUS: M DC PLAN ID: [id number] FACILITY: [facility] PRINTED ON: 04/19/21 10:05 CT All edits/amendments must be made on the electronic document DICTATION DATE: 04/19/21 1004 ADMINISTRATIVE ASSISTANT COORDINATOR: NICCI 04/19/21 1004 RPT#: [id number] DC DATE: STATUS: ADM IN [facility] [address] [place] [address] END OF REPORT
--- NOTE | 2021-04-19 10:17 | MORECARE ---
CASE MANAGEMENT DISCHARGE SUMMARY PATIENT: JACKY BARILLAS UNIT: [id number] ADM DATE: 04/08/21 AGE: 66 : 57 SEX: M ROOM/BED: D.2106 AUTHOR: ZARA,DOC PHYSICIAN: REFERRING PHYSICIAN: LISSA DIALLO MD DATE OF SERVICE: 04/19/21 Case Management Discharge Planning Summary COMMENTS ENTERED DATE: 04/19/21 10:14 CT COMMENT TYPE: Discharge Planning REVIEWER: Cece Jones called and states that I can fax records to [phone] to the [place] inpatient rehab. Genna states to check with her in the am. Records faxed. ENTERED DATE: 04/19/21 10:01 CT COMMENT TYPE: Discharge Planning REVIEWER: Cece Goodwin CM met again with patient and he would like home health with [facility]. He would also like me to check with the [place] to see if they have available inpatient rehab beds. I called Rosa M and she states Genna Jones is his piano case and bench assembler. I called Genna at [phone] and left a message on her voice mail concerning this with my call back number. ENTERED DATE: 04/19/21 9:30 CT COMMENT TYPE: Discharge Planning REVIEWER: Cece Goodwin CM met with patient and to discuss decision on SNF. We also discussed home health option. They have not made a decision yet. I informed them that he is ready for discharge and they need a discharge disposition. I encouraged SNF for safety reasons. Patient asks me to return at a later time. He states his PCP is Dr. Rodriguez. States he has 2 BSC, walker, rollator walker, scooter, shower chair, grab bars in the shower. states he is able to get to his wheelchair into the car, but has difficulty with this because it's a [employer] and cannot get in and out well. They are current with [facility]. At this time patient and spouse are both unsure if he can go home with home health or needs a SNF. He asks again why he cannot go downstairs for rehab and I informed them that his insurance has denied inpatient rehab. CM will meet again with him this afternoon. ENTERED DATE: 04/17/21 11:32 CT COMMENT TYPE: Discharge Planning REVIEWER: Cece Goodwin Updated clinical faxed to [facility]. Amelia states they are awaiting auth. ENTERED DATE: 04/14/21 14:01 CT COMMENT TYPE: Discharge Planning REVIEWER: Yi Fajardo referral was [facility] to [facility] 04/13/21, checked on it today and Amelia stated that are pending auth DCP REVIEW SUMMARY ANTICIPATED D/C DATE: EXPECTED LOS : CASE STATUS: DCP Initiated INITIAL REVIEW: 04/08/2021 INITIAL REVIEWER: Yi Fajardo FINAL DISCHARGE DISPOSITION: : FINAL REVIEWER: FINAL REVIEW DATE: DCP Focus Questions & Answers QUESTION: ANSWER : PATIENT: JACKY BARILLAS ENCOUNTER: [id number] MEDICAL RECORD#: [id number] ADMISSION DATE: 04/08/2021 DISCHARGE DATE: ATTENDING MD: LISSA HICKEY : AGE: 66 MARITAL STATUS: M DC PLAN ID: [id number] FACILITY: [facility] PRINTED ON: 04/19/21 10:17 CT All edits/amendments must be made on the electronic document DICTATION DATE: 04/19/21 1017 HEAVY EQUIPMENT SALES MANAGER: NICCI 04/19/21 1017 RPT#: [id number] DC DATE: STATUS: ADM IN [facility] [address] [place] [address] END OF REPORT
[2021-04-19 11:10] VITALS: BP 132/63
--- NOTE | 2021-04-19 11:19 | NUR ---
I have reviewed this patient and I concur with the Shift Assessment completed by the Licensed Practical Nurse today this shift.
[2021-04-19 15:16] VITALS: BP 136/43
--- NOTE | 2021-04-19 16:33 | NUR ---
OT NOTE: PT SLEEPING SOUNDLY IN AM. REPORTS THAT HE DID NOT SLEEP LAST NIGHT AND HAS BEEN SLEEPING SINCE SHE GOT HERE THIS AM..PT SEEN IN PM. ABLE TO PERFORM SUPINE TO SIT WITHOUT ASSIST; ABLE TO STAND AND USE BASIN TO URINATE IN..STATES THAT HE CANT USE URINAL WITHOUT SPILLING IT; BACK TO EOB WITHOUT ASSIST. MAZIN LEYVA, OTR/L [phone]
--- NOTE | 2021-04-19 20:00 | NUR ---
REPORT RECEIVED. PT A&O, UP IN BED. NO S/S OF DISTRESS OBSERVED. RR EVEN & UNLABORED ON 2L. FLUTTER 62 ON TELE. BED LOCKED AND LOWERED, CL IN REACH. ASSESSMENT COMPLETE. WILL CONT POC.
[2021-04-19 20:50] VITALS: BP 144/71
[2021-04-20 00:23] VITALS: BP 147/66
[2021-04-20 04:58] VITALS: BP 157/55
[2021-04-20 06:00] LABS: BASOPHILS 0.6 % (0-2); EOSINOPHILS 5.2 % (0-7); HEMATOCRIT 30.4 % (42.0-54.0); HEMOGLOBIN 10.2 g/dL (13.5-17.5); LYMPHOCYTES 14.4 % (15-50); MCH 30.5 pg (26.0-34.0); MCHC 33.6 g/dL (31.0-37.0); MCV 90.8 fL (80.0-100.0); MEAN PLATELET VOLUME 7.6 fL (7.4-10.4); MONOCYTES 7.8 % (2-11); PLATELET COUNT 289 10x3/uL (130-400); RBC 3.35 10x6/uL (4.20-6.10); RDW 17.1 % (11.5-14.5); WBC 7.6 10x3/uL (4.8-10.8)
[2021-04-20 06:11] LABS: ANION GAP 10.5 mmol/L (8-16); CARBON DIOXIDE 31.8 mmol/L (21.0-32.0); CREATININE - SERUM 2.5 mg/dL (0.6-1.3); POTASSIUM - SERUM 4.3 mmol/L (3.5-5.1)
--- NOTE | 2021-04-20 07:18 | NUR ---
PT IS RESTING IN BEDSIDE CHAIR WITH EYES OPEN. RESPIRATIOS ARE EVEN AND UNLABORED. PT IS AAO X 4 AND ANSWERS ALL QUESTIONS APPROPRIATLEY.PT WITHOUT PIV ACCESS. O2 VIA NC @ 2L. PT WITH BLE EDEMA 4+ TO LEFT FOOT AND 3+ TO RIGHT FOOT. PT DENIES PRESENCE OF NUMBNESS/TINGLING TO BUE AND BLE AT THIS TIME. PEDAL PULSES ARE PALP BUT FAINT BILATERAL. CAP REFILL TO BLE IS < 3 SEC. PT REQUESTS ASSISTANCE TO BSC AND AMBULATES FROM CHAIR TO BSC WITH MINIMAL STAND BY ASSIST. PT WITH DYSPNEA WITH EXERTION AND AMBULATION. PT WITH LARGE SOFT BM AND DENIES PAIN WITH DEFECATION. PT ASSISTED BACK TO CHAIR PER REQUEST. PT DENIES PRESENCE OF PAIN/N/V AT THIS TIME. PT DENIES PRESENCE OF DYSPNEA/SOB AT THIS TIME. CALL LIGHT WITHIN REACH. SIDE RAILS X 2. BED IS IN THE LOWEST POSITION. BEDSIDE TABLE IS WITHIN REACH. PT DENIES FURTHER NEEDS. CONTACT ISOLATION PRECAUTIONS IN PLACE AND FOLLOWED. WILL CONT TO MONITOR.
[2021-04-20 08:09] VITALS: BP 153/66
--- NOTE | 2021-04-20 11:00 | NUR ---
Nutrition Reassessment/Follow-up: Eating well. Awaiting possible placement. Diet: Low Na, Carb Consistent Wt: 464# (04/18)Adj BW: 263# Labs noted: BUN 69, Cre 2.5, GFR 28, Glu 99 Meds noted: Ferrlecit, Senokot, Florajen, Protonix, electrolyte protocol Est needs: 8733-8076 kcal/day (20-25 kcal/kg adj BW) 95-120 g protein/day (0.8-1 g/kg adj BW) Fluid: per MD Nutrition Diagnosis: -Obesity R/T presumably excessive energy intake AEB BMI 58. -Altered nutrition-related lab values R/T kidney dysfunction AEB BUN 69, Cre 2.5, GFR 28. Nutrition Goals: -PO intake >=75% avg of meals/snacks. -Ultimate goal is for wt to trend down ~1-2#/wk. Nutrition Intervention: -Monitor wt. -RD will follow up within 7 days.
--- NOTE | 2021-04-20 11:34 | NUR ---
PT RESTING IN CHAIR CONCESSION MANAGER ALERTS OF HEART RATE OF 33. UPON ENTERING PT ROOM PT IS RESTING WITH EYES CLOSED AND IS EASILY AROUSED WITH VERBAL STIMULATION. PT STATES THAT PT IS SUPPOSED TO SLEEP WITH CPAP MACHINE ON. BP IS 148/60 RESPIRATIONS ARE EVEN AND UNLABORED. PT IS AAO X 4 UPON AROUSAL. O2 VIA NC @ 2L. CPAP PLACED FOR PT COMFORT. HEART RATE ELEVATES TO 53 WITH ACCORDING TO CONCESSION MANAGER IS CLOSE TO BASELINE. BED IS IN THE LOWEST POSITION. CALL LIGHT AND BEDSIDE TABLE ARE WITHIN REACH. SIDE RAILS X 2. PT AND PT SPOUSE DENY FURTHER NEEDS. WILLCO NT TO MONITOR.
[2021-04-20 11:40] VITALS: BP 150/63
--- NOTE | 2021-04-20 12:14 | MORECARE ---
CASE MANAGEMENT DISCHARGE SUMMARY PATIENT: JACKY BARILLAS UNIT: [id number] ADM DATE: 04/08/21 AGE: 66 : 57 SEX: M ROOM/BED: D.2106 AUTHOR: ZARA,DOC PHYSICIAN: REFERRING PHYSICIAN: LISSA DIALLO MD DATE OF SERVICE: 04/20/21 Case Management Discharge Planning Summary COMMENTS ENTERED DATE: 04/20/21 12:11 CT COMMENT TYPE: Discharge Planning REVIEWER: Cece Goodwin CM called Genna Jones to check on status of rehab referral and left a voice mail for her to return my call. ANNE will continue to follow and assist with discharge planning/needs. ENTERED DATE: 04/19/21 10:14 CT COMMENT TYPE: Discharge Planning REVIEWER: Cece Jones called and states that I can fax records to [phone] to the [place] inpatient rehab. Genna states to check with her in the am. Records faxed. ENTERED DATE: 04/19/21 10:01 CT COMMENT TYPE: Discharge Planning REVIEWER: Cece Goodwin CM met again with patient and he would like home health with [facility]. He would also like me to check with the [place] to see if they have available inpatient rehab beds. I called Rosa M and she states Genna Jones is his showcase trimmer. I called Genna at [phone] and left a message on her voice mail concerning this with my call back number. ENTERED DATE: 04/19/21 9:30 CT COMMENT TYPE: Discharge Planning REVIEWER: Cece Goodwin CM met with patient and to discuss decision on SNF. We also discussed home health option. They have not made a decision yet. I informed them that he is ready for discharge and they need a discharge disposition. I encouraged SNF for safety reasons. Patient asks me to return at a later time. He states his PCP is Dr. Rodriguez. States he has 2 BSC, walker, rollator walker, scooter, shower chair, grab bars in the shower. states he is able to get to his wheelchair into the car, but has difficulty with this because it's a [employer] and cannot get in and out well. They are current with [facility] . At this time patient and spouse are both unsure if he can go home with home health or needs a SNF. He asks again why he cannot go downstairs for rehab and I informed them that his insurance has denied inpatient rehab. CM will meet again with him this afternoon. ENTERED DATE: 04/17/21 11:32 CT COMMENT TYPE: Discharge Planning REVIEWER: Cece Goodwin Updated clinical faxed to [facility]. Amelia states they are awaiting auth. ENTERED DATE: 04/14/21 14:01 CT COMMENT TYPE: Discharge Planning REVIEWER: Yi Fajardo referral was [facility] to [facility] 04/13/21, checked on it today and Amelia stated that are pending auth DCP REVIEW SUMMARY ANTICIPATED D/C DATE: EXPECTED LOS : CASE STATUS: DCP Initiated INITIAL REVIEW: 04/08/2021 INITIAL REVIEWER: Yi Fajardo FINAL DISCHARGE DISPOSITION: : FINAL REVIEWER: FINAL REVIEW DATE: ORP Focus Questions & Answers QUESTION: ANSWER : PATIENT: JACKY BARILLAS ENCOUNTER: [id number] MEDICAL RECORD#: [id number] ADMISSION DATE: 04/08/2021 DISCHARGE DATE: ATTENDING MD: LISSA HICKEY : AGE: 66 MARITAL STATUS: M DC PLAN ID: [id number] FACILITY: [facility] PRINTED ON: 04/20/21 12:14 CT All edits/amendments must be made on the electronic document DICTATION DATE: 04/20/211213 COILER: NICCI 04/20/211213 RPT#: [id number] DC DATE: STATUS: ADM IN [facility] [address] [place] [address] END OF REPORT
--- NOTE | 2021-04-20 14:38 | MORECARE ---
CASE MANAGEMENT DISCHARGE SUMMARY PATIENT: JACKY BARILLAS UNIT: [id number] ADM DATE: 04/08/21 AGE: 66 : 57 SEX: M ROOM/BED: D.2106 AUTHOR: ZARA,DOC PHYSICIAN: REFERRING PHYSICIAN: LISSA DIALLO MD DATE OF SERVICE: 04/20/21 Case Management Discharge Planning Summary COMMENTS ENTERED DATE: 04/20/21 14:32 CT COMMENT TYPE: Discharge Planning REVIEWER: Cece Goodwin CM faxed updated PT note to [phone]. I have asked that they call [facility] with a [facility] since the patient is ready for discharge. I called Genna Jones again and she states she will "check on it and to call her in the morning." CM will continue to f/u for [place] inpatient rehab placement. ENTERED DATE: 04/20/21 12:11 CT COMMENT TYPE: Discharge Planning REVIEWER: Cece Goodwin CM called Genna Jones to check on status of rehab referral and left a voice mail for her to return my call. CM will continue to follow and assist with discharge planning/needs. ENTERED DATE: 04/19/21 10:14 CT COMMENT TYPE: Discharge Planning REVIEWER: Cece Jones called and states that I can fax records to [phone] to the [place] inpatient rehab. Genna states to check with her in the am. Records faxed. ENTERED DATE: 04/19/21 10:01 CT COMMENT TYPE: Discharge Planning REVIEWER: Cece Goodwin CM met again with patient and he would like home health with [facility]. He would also like [facility]. I called Rosa M and she states Genna Jones is his hospice case manager. I called Genna at [phone] and left a message on her voice mail concerning this with my call back number. ENTERED DATE: 04/19/21 9:30 CT COMMENT TYPE: Discharge Planning REVIEWER: Cece Goodwin CM met with patient and to discuss decision on SNF. We also discussed home health option. They have not made a decision yet. I informed them that he is ready for discharge and they need a discharge disposition. I encouraged SNF for safety reasons. Patient asks me to return at a later time. He states his PCP is Dr. Rodriguez. States he has 2 BSC, walker, rollator walker, scooter, shower chair, grab bars in the shower. states he is able to get to his wheelchair into the car, but has difficulty with this because it's a [employer] and cannot get in and out well. They are current with [facility] . At this time patient and spouse are both unsure if he can go home with home health or needs a SNF. He asks again why he cannot go downstairs for rehab and I informed them that his insurance has denied inpatient rehab. CM will meet again with him this afternoon. ENTERED DATE: 04/17/21 11:32 CT COMMENT TYPE: Discharge Planning REVIEWER: Cece Goodwin Updated clinical faxed to [facility]. Amelia states they are awaiting auth. ENTERED DATE: 04/14/21 14:01 CT COMMENT TYPE: Discharge Planning REVIEWER: Yi Fajardo referral was [facility] to [facility] 04/13/21, checked on it today and Amelia stated that are pending auth DCP REVIEW SUMMARY ANTICIPATED D/C DATE: EXPECTED LOS : CASE STATUS: DCP Initiated INITIAL REVIEW: 04/08/2021 INITIAL REVIEWER: Yi Fajardo FINAL DISCHARGE DISPOSITION: : FINAL REVIEWER: FINAL REVIEW DATE: DCP Focus Questions & Answers QUESTION: ANSWER : PATIENT: JACKY BARILLAS ENCOUNTER: [id number] MEDICAL RECORD#: [id number] ADMISSION DATE: 04/08/2021 DISCHARGE DATE: ATTENDING MD: LISSA HICKEY : AGE: 66 MARITAL STATUS: M DC PLAN ID: [id number] FACILITY: [facility] PRINTED ON: 04/20/21 14:38 CT All edits/amendments must be made on the electronic document DICTATION DATE: 04/20/211437 TRAY LINE SUPERVISOR: NICCI 04/20/211437 RPT#: [id number] DC DATE: STATUS: ADM IN [facility] [address] [place] [address] END OF REPORT
[2021-04-20 15:14] VITALS: BP 144/64
--- NOTE | 2021-04-20 16:58 | NUR ---
OT NOTE: PT COMPLETED ADL MOBILITY WITH SPV. PT COMPLETED SIT TO STAND WITH SPV. PT COMPLETED STANDING AT SINK WITH SPV. PT COMPLETED BUE AROM WITH FUNCTIONAL TASKS. [phone] ARIELLE SCALES COTA
[2021-04-20 21:34] VITALS: BP 148/54
--- NOTE | 2021-04-21 01:17 | NUR ---
PT COPPER MINER BLASTING LIGHT ASKED NURSE WHY IS HE FEELING NAUSEA. PT WAS EXPLAINED THAT THERE IS MANY REASONS WHY HE MIGHT BE NAUSEOUS AND HE CAN HAVE [facility] IF NEEDED HE REFUSE. PT ASK WHY IS TAKING SO LONG TO ANSWER HIS CALL LIGHT AND HE WAS EXPLAINED THAT WE ONLY HAVE ONE TECH HELPING US MAXINE AND NURSE HAS RO HELP ALL HER OTHER PATIENTS WELL. PT WAS COPPER MINER BLASTING RICARDO AGAIN REQUESTIN A SANDWICH OR SOMEHTING TO EAT, HE WAS INFORMED WE HAVE NO SANDWICHES IN AT THE MOMENT BUT HE COULD HAVE JELO, PUDIN OR CRACKERS IF HE WANTED TO. PT WILL CONT WITH POC
--- NOTE | 2021-04-21 01:21 | NUR ---
PT MACHINE MAINTENANCE SERVICER LIGHT. WHEN TECH WHEN TO HIS ROOM PT WAS ON THE PHONE WITH ON SPEAKER AND QUESTION WHY WE ONLY HAVE ONE TECH AND ONE NURSE ON THE FLOOR TONIGHT? PT WAS EXPLAINED BY DRU THAT SHE IS THE ONLY ONE HELPING US AND THAT EACH NURSE ON THE FLOOR HAS MORE THAN ONE PATIENT NOT THAT THERE IS JUST ONE NURSE FOR THE FLOOR. PT INFORMED DRU HE WAS GOING TO SIT ON HIS PORTABLE COMODE FOR A WHILE. WILL CONT TO MONITOR.
--- NOTE | 2021-04-21 03:10 | NUR ---
I have reviewed this patient and I concur with the Shift Assessment completed by the Licensed Practical Nurse today this shift.
[2021-04-21 03:50] VITALS: BP 166/67
[2021-04-21 06:56] LABS: BASOPHILS 0.2 % (0-2); EOSINOPHILS 0.1 % (0-7); HEMATOCRIT 33.8 % (42.0-54.0); HEMOGLOBIN 11.5 g/dL (13.5-17.5); LYMPHOCYTES 6.8 % (15-50); MCH 30.9 pg (26.0-34.0); MCV 91.1 fL (80.0-100.0); MEAN PLATELET VOLUME 7.9 fL (7.4-10.4); MONOCYTES 3.8 % (2-11); NEUTROPHILS 89.1 % (40-80); RBC 3.71 10x6/uL (4.20-6.10); RDW 16.8 % (11.5-14.5)
[2021-04-21 07:04] LABS: PLATELET COUNT 364 10x3/uL (130-400); WBC 9.8 10x3/uL (4.8-10.8)
--- NOTE | 2021-04-21 07:25 | NUR ---
PT SITTING AT BEDSIDE IN CHAIR. RESP EVEN AND UNLABORED. AAO X4. DENIES NEEDS AT THIS TIME. CLIR.
[2021-04-21 07:35] LABS: CALCIUM 9.7 mg/dL (8.5-10.1); CARBON DIOXIDE 30.7 mmol/L (21.0-32.0); CREATININE - SERUM 2.7 mg/dL (0.6-1.3); POTASSIUM - SERUM 4.7 mmol/L (3.5-5.1)
[2021-04-21 07:50] VITALS: BP 147/96
[2021-04-21 10:55] VITALS: BP 159/49
--- NOTE | 2021-04-21 13:54 | NUR ---
I have reviewed this patient and I concur with the Shift Assessment completed by the Licensed Practical Nurse today this shift.
[2021-04-21 15:59] VITALS: BP 138/64
--- NOTE | 2021-04-21 16:42 | NUR ---
OT NOTE: PT COMPLETED ADL MOBILITY WITH SBA-CGA. PT COMPLETED SIT TO STAND WITH SBA-CGA. PT REQUIRED SBA FOR TOILETING TASKS. PT COMPLETED HAND HYGIENE WITH SETUP. [phone] THANK YOU,TANG HENDERSON
--- NOTE | 2021-04-21 19:30 | NUR ---
IV ACCESS ATTEMPTED X2 STICK. NOTIFIED CHARGE NURSE, VERONICA GLEZ, AND ON COMING FINAL DRESSING CUTTER NURSE, JAZ GLEZ.
[2021-04-21 21:33] VITALS: BP 144/99
--- NOTE | 2021-04-21 23:37 | NUR ---
INITAIL ROUNDS COMPLETED AT 1915 HRS. DAY NURSE ATTEMPTONG IV. ASSESSMENT COMPLETED AT 2015 HRS. DAY NURSE STUCK X2 WITHOUT SUCCESS. O2 2LNC. PT'S OWN BIPAP IN ROOM. PT ALERT AND ORIENTED TO PERSON, PLACE AND TIME. BENAVIDEZ. PALPABLE PERIPHERAL PULSES. A-FLUTTER PER CMHR 60. LUNGS DIMINISHED IN BASES BILAT. ABD LARGE, SOFT WTIH ACTIVE BS NOTED. 2+ EDEMA TO BILAT FEET. BILAT LOWER LEGS RED. BILAT ABD FOLDS RED. BRUISES X3 TO BUTTOCKS AREA. BSC EMPTIED OF A LARGE, SOFT BM. PM FSBS 254. PT COVERED PER S/S. PM MEDS GIVEN. ATTEMPTED AN IV AT 2240 HRS WITHOUT SUCCESS. PT DECLINES ANY MORE ATTEMPTS THIS PM. ASSISTED PT TO BED. PT CURRENTLY RESTING WITH EYES CLOSED. RESP EVEN AND REGULAR. SR UP X1, CALL LIGHT WITHIN REACH AND OWN BIPAP IN USE.
--- NOTE | 2021-04-22 01:13 | NUR ---
PT RESTING WITH EYES CLOSED. RESP EVEN AND REGULAR. CALL LIGHT WITHIN REACH.
--- NOTE | 2021-04-22 03:32 | NUR ---
PT UP TO BSC. SMALL PALE BROWN BM NOTED. ASSISTED TO RECLINER, O2 2LNC. CALL LIGHT WITHIN REACH.
[2021-04-22 05:07] VITALS: BP 159/81
[2021-04-22 05:41] LABS: BASOPHILS 0.2 % (0-2); HEMATOCRIT 34.1 % (42.0-54.0); HEMOGLOBIN 11.3 g/dL (13.5-17.5); LYMPHOCYTES 9.4 % (15-50); MCH 30.2 pg (26.0-34.0); MCHC 33.1 g/dL (31.0-37.0); MCV 91.2 fL (80.0-100.0); MEAN PLATELET VOLUME 7.9 fL (7.4-10.4); MONOCYTES 4.7 % (2-11); NEUTROPHILS 84.7 % (40-80); PLATELET COUNT 367 10x3/uL (130-400); RBC 3.74 10x6/uL (4.20-6.10); RDW 16.6 % (11.5-14.5); WBC 12.1 10x3/uL (4.8-10.8)
[2021-04-22 06:03] LABS: ALBUMIN 3.5 g/dL (3.4-5.0); BILIRUBIN - TOTAL 0.53 mg/dL (0.2-1.3); CALCIUM 9.3 mg/dL (8.5-10.1); CARBON DIOXIDE 28.5 mmol/L (21.0-32.0); CREATININE - SERUM 2.8 mg/dL (0.6-1.3); POTASSIUM - SERUM 4.5 mmol/L (3.5-5.1); PROTEIN - SERUM 8.5 g/dL (6.4-8.2)
--- NOTE | 2021-04-22 06:38 | NUR ---
[facility] PT DENIED ANY DISCOMFORT. NEEDS MET; WILL CONTINUE TO MONITOR.
--- NOTE | 2021-04-22 07:00 | NUR ---
RECIEVED REPORT. ASSUMED CARE OF PATIENT. PATIENT SITTING IN CHAIR AT BEDSIDE. DENIES NEED. WHITE BOARD UPDATED, BEDSIDE SHIFT REPORT COMPLETE. NO DISTRESS.
[2021-04-22 07:59] VITALS: BP 136/66
[2021-04-22] MEDS ORDERED: NORVASC10 MG PO (11:00)
[2021-04-22] MEDS ORDERED: XOPENEX 1.1.25 MG/3 INH (11:00)
[2021-04-22] MEDS ORDERED: NYSTATIN1 PWD TOPICAL (11:01)
[2021-04-22] MEDS ORDERED: PROCTOFOAM-HC 110 GM RC (11:01)
[2021-04-22] MEDS ORDERED: OXYBUTYNIN CHLOR5 MG PO (11:01)
[2021-04-22] MEDS ORDERED: FERROUS SULFAT325 MG PO (11:02)
--- NOTE | 2021-04-22 11:23 | NUR ---
FSBS 116. NO INSULIN PER SLIDING SCALE.
--- NOTE | 2021-04-22 11:46 | NUR ---
ENCOURAGED USE OF INCENTIVE SPIROMETERMICHAEL PATIENT IT COULD BE TAKEN HOME WITH HIM TODAY AND ENCOURAGED PT TO CONTINUE USING IT. PATIENT VERBALIZED UNDERSTANDING OF BEING DISCHARGED TO HOME TODAY.
[2021-04-22] MEDS ORDERED: TORSEMIDE20 MG PO (12:34)
--- NOTE | 2021-04-22 13:48 | NUR ---
TELEMETRY REMOVED FROM PATIENT AND RETURNED TO ICU CEMENT CONTRACTOR DISCHARGE INSTRUCTIONS PROVIDED TO PATIENT AND HIS . PATIENT VERBALIZED UNDERSTANDING OF ALL INSTRUCTIONS PROVIDED. PATIENT IS NOW GATHERING PERSONAL BELONGING TO DISCHARGE TO HOME WITH HIS .
--- NOTE | 2021-04-22 13:52 | MORECARE ---
CASE MANAGEMENT DISCHARGE SUMMARY PATIENT: JACKY BARILLAS UNIT: [id number] ADM DATE: 04/08/21 AGE: 66 : 57 SEX: M ROOM/BED: D.2106 AUTHOR: ZARA,DOC PHYSICIAN: REFERRING PHYSICIAN: LISSA DIALLO MD DATE OF SERVICE: 04/22/21 Case Management Discharge Planning Summary COMMENTS ENTERED DATE: 04/22/21 13:41 CT COMMENT TYPE: Discharge Planning REVIEWER: Sulma Cleveland CM spoke with patient to discuss discharge plan of home with home health services. Patient stated he lives with his , Aurora Barillas ([phone]). Aurora will provide transportation for patient after discharge and bring his home O2 supply. Patient stated he currently utilizes [facility] for home O2 services and would like to use [facility]. Patient states he has a walker, shower chair, cane, wheelchair, scooter, bedside commode and a ramp. SUKHI obtained and signed for [facility]. IMM also signed, placed in chart and copy provided to patient. Notified Yimi of new referral and spoke with Norma. CM will continue to follow. ENTERED DATE: 04/20/21 14:32 CT COMMENT TYPE: Discharge Planning REVIEWER: Cece Goodwin CM faxed updated PT note to [phone]. I have asked that they call me with a determination [facility] since the patient is ready for discharge. I called Genna Jones again and she states she will "check on it and to call her in the morning." CM will continue to f/u for [facility]. ENTERED DATE: 04/20/21 12:11 CT COMMENT TYPE: Discharge Planning REVIEWER: Cece Goodwin CM called Genna Jones to check on status of rehab referral and left a voice mail for her to return my call. CM will continue to follow and assist with discharge planning/needs. ENTERED DATE: 04/19/21 10:14 CT COMMENT TYPE: Discharge Planning REVIEWER: Cece Jones called and states that I can fax records to [phone] to the [place] inpatient rehab. Genna states to check with her in the am. Records faxed. ENTERED DATE: 04/19/21 10:01 CT COMMENT TYPE: Discharge Planning REVIEWER: Cece Goodwin CM met again with patient and he would like home health with [facility]. He would also like me to check with the [place] to see if they have available inpatient rehab beds. I called Rosa M and she states Genna Jones is his family caseworker. I called Genna at [phone] and left a message on her voice mail concerning this with my call back number. ENTERED DATE: 04/19/21 9:30 CT COMMENT TYPE: Discharge Planning REVIEWER: Cece Goodwin CM met with patient and to discuss decision on SNF. We also discussed home health option. They have not made a decision yet. I informed them that he is ready for discharge and they need a discharge disposition. I encouraged SNF for safety reasons. Patient asks me to return at a later time. He states his PCP is Dr. Rodriguez. States he has 2 BSC, walker, rollator walker, scooter, shower chair, grab bars in the shower. states he is able to get to his wheelchair into the car, but has difficulty with this because it's a [employer] and cannot get in and out well. They are current with [facility] . At this time patient and spouse are both unsure if he can go home with home health or needs a SNF. He asks again why he cannot go downstairs for rehab and I informed them that his insurance has denied inpatient rehab. CM will meet again with him this afternoon. ENTERED DATE: 04/17/21 11:32 CT COMMENT TYPE: Discharge Planning REVIEWER: Cece Goodwin Updated clinical faxed to [facility] IP rehab. Amelia states they are awaiting auth. ENTERED DATE: 04/14/21 14:01 CT COMMENT TYPE: Discharge Planning REVIEWER: Yi Fajardo [facility], checked on it today and Amelia stated that are pending auth DCP REVIEW SUMMARY ANTICIPATED D/C DATE: EXPECTED LOS : CASE STATUS: DCP Initiated INITIAL REVIEW: 04/08/2021 INITIAL REVIEWER: Yi Fajardo FINAL DISCHARGE DISPOSITION: : FINAL REVIEWER: FINAL REVIEW DATE: DCP [facility] Questions & Answers QUESTION: ANSWER : PATIENT: JACKY BARILLAS ENCOUNTER: [id number] MEDICAL RECORD#: [id number] ADMISSION DATE: 04/08/2021 DISCHARGE DATE: ATTENDING MD: LISSA HICKEY : AGE: 66 MARITAL STATUS: M DC PLAN ID: [id number] FACILITY: [facility] PRINTED ON: 04/22/21 13:51 CT All edits/amendments must be made on the electronic document DICTATION DATE: 04/22/21 135 NETWORK MGR: NICCI 04/22/21 1351 RPT#: [id number] DC DATE: STATUS: ADM IN [facility] [address] [place] [address] END OF REPORT
--- NOTE | 2021-04-22 14:46 | NUR ---
PATIENT LEFT UNIT VIA WHEELCHAIR WITH TRANSPORT WITH ALL PERSONAL BELONGINGS. PATIENT LEFT UNIT IN STABLE CONDITION. PATIENT DISCHARGED TO HOME.
--- NOTE | 2021-04-25 13:22 | MORECARE ---
CASE MANAGEMENT DISCHARGE SUMMARY PATIENT: JACKY BARILLAS UNIT: [id number] ADM DATE: 04/08/21 AGE: 66 : 57 SEX: M ROOM/BED: D.2106 AUTHOR: ZARA,DOC PHYSICIAN: REFERRING PHYSICIAN: LISSA DIALLO MD DATE OF SERVICE: 04/25/21 Case Management Discharge Planning Summary COMMENTS ENTERED DATE: 04/22/21 13:41 CT COMMENT TYPE: Discharge Planning REVIEWER: Sulma Cleveland CM spoke with patient to discuss discharge plan of home with home health services. Patient stated he lives with his , Aurora Barillas ([phone]). Aurora will provide transportation for patient after discharge and bring his home O2 supply. Patient stated he currently utilizes [facility] for home O2 services and would like to use [facility]. Patient states he has a walker, shower chair, cane, wheelchair, scooter, bedside commode and a ramp. SUKHI obtained and signed for [facility]. IMM also signed, placed in chart and copy provided to patient. Notified Yimi of new referral and spoke with Norma. CM will continue to follow. ENTERED DATE: 04/20/21 14:32 CT COMMENT TYPE: Discharge Planning REVIEWER: Cece Goodwin CM faxed updated PT note to [phone]. I have asked that they call me with a determination for [facility] since the patient is ready for discharge. I called Genna Jones again and she states she will "check on it and to call her in the morning." CM will continue to f/u for [facility] inpatient [facility] placement. ENTERED DATE: 04/20/21 12:11 CT COMMENT TYPE: Discharge Planning REVIEWER: Cece Goodwin CM called Genna Jones to check on status of rehab referral and left a voice mail for her to return my call. CM will continue to follow and assist with discharge planning/needs. ENTERED DATE: 04/19/21 10:14 CT COMMENT TYPE: Discharge Planning REVIEWER: Cece Jones called and states that I can fax records to [phone] to the [place] inpatient rehab. Genna states to check with her in the am. Records faxed. ENTERED DATE: 04/19/21 10:01 CT COMMENT TYPE: Discharge Planning REVIEWER: Cece Goodwin CM met again with patient and he would like home health with [facility]. He would also like me to check with the [place] to see if they have available inpatient rehab beds. I called Rosa M and she states Genna Jones is his case specialist. I called Genna at [phone] and left a message on her voice mail concerning this with my call back number. ENTERED DATE: 04/19/21 9:30 CT COMMENT TYPE: Discharge Planning REVIEWER: Cece Goodwin CM met with patient and to discuss decision on SNF. We also discussed home health option. They have not made a decision yet. I informed them that he is ready for discharge and they need a discharge disposition. I encouraged SNF for safety reasons. Patient asks me to return at a later time. He states his PCP is Dr. Rodriguez. States he has 2 BSC, walker, rollator walker, scooter, shower chair, grab bars in the shower. states he is able to get to his wheelchair into the car, but has difficulty with this because it's a [employer] and cannot get in and out well. They are current with [facility] . At this time patient and spouse are both unsure if he can go home with home health or needs a SNF. He asks again why he cannot go downstairs for rehab and I informed them that his insurance has denied inpatient rehab. CM will meet again with him this afternoon. ENTERED DATE: 04/17/21 11:32 CT COMMENT TYPE: Discharge Planning REVIEWER: Cece Goodwin Updated clinical faxed to [facility]. Amelia states they are awaiting auth. ENTERED DATE: 04/14/21 14:01 CT COMMENT TYPE: Discharge Planning REVIEWER: Yi Fajardo referral was sent to [facility] 04/13/21, checked on it today and Amelia stated that are pending auth DCP REVIEW SUMMARY ANTICIPATED D/C DATE: EXPECTED LOS : 0 CASE STATUS: DCP Initiated INITIAL REVIEW: 04/08/2021 INITIAL REVIEWER: Yi Fajardo FINAL DISCHARGE DISPOSITION: 06 : Discharged/Trans to Home Under Care of Organized Home Health Service in Anticipation of Skilled Care FINAL REVIEWER: Cece Goodwin FINAL REVIEW DATE: 04/25/2021 [facility] Focus Questions & Answers QUESTION: ANSWER : PATIENT: JACKY BARILLAS ENCOUNTER: [id number] MEDICAL RECORD#: [id number] ADMISSION DATE: 04/08/2021 DISCHARGE DATE: 04/22/2021 ATTENDING MD: LISSA HICKEY : AGE: 66 MARITAL STATUS: M DC PLAN ID: [id number] FACILITY: [facility] PRINTED ON: 04/25/21 13:22 CT All edits/amendments must be made on the electronic document DICTATION DATE: 04/25/211321 [employer]: NICCI 04/25/21 132 RPT#: [id number] DC DATE:04/22/21 STATUS: DIS IN [facility] [address] [place] [address] END OF REPORT
--- NOTE | 2021-04-25 14:10 | MORECARE ---
CASE MANAGEMENT DISCHARGE SUMMARY PATIENT: JACKY BARILLAS UNIT: [id number] ADM DATE: 04/08/21 AGE: 66 : 57 SEX: M ROOM/BED: D.2106 AUTHOR: ZARA,DOC PHYSICIAN: REFERRING PHYSICIAN: LISSA DIALLO MD DATE OF SERVICE: 04/25/21 Case Management Discharge Planning Summary COMMENTS ENTERED DATE: 04/22/21 13:41 CT COMMENT TYPE: Discharge Planning REVIEWER: Sulma Cleveland CM spoke with patient to discuss discharge plan of home with home health services. Patient stated he lives with his , Aurora Barillas ([phone]). Aurora will provide transportation for patient after discharge and bring his home O2 supply. Patient stated he currently utilizes [facility] for home O2 services and would like to use [facility]. Patient states he has a walker, shower chair, cane, wheelchair, scooter, bedside commode and a ramp. SUKHI obtained and signed for [facility]. IMM also signed, placed in chart and copy provided to patient. Notified Yimi of new referral and spoke with Norma. CM will continue to follow. ENTERED DATE: 04/20/21 14:32 CT COMMENT TYPE: Discharge Planning REVIEWER: Cece Goodwin CM faxed updated PT note to [phone]. I have asked that they call me with a determination for [facility] since the patient is ready for discharge. I called Genna Jones again and she states she will "check on it and to call her in the morning." CM will continue to f/u for [facility] inpatient re[facility] placement. ENTERED DATE: 04/20/21 12:11 CT COMMENT TYPE: Discharge Planning REVIEWER: Cece Goodwin CM called Genna Jones to check on status of rehab referral and left a voice mail for her to return my call. CM will continue to follow and assist with discharge planning/needs. ENTERED DATE: 04/19/21 10:14 CT COMMENT TYPE: Discharge Planning REVIEWER: Cece Jones called and states that I can fax records to [phone] to the [place] inpatient rehab. Genna states to check with her in the am. Records faxed. ENTERED DATE: 04/19/21 10:01 CT COMMENT TYPE: Discharge Planning REVIEWER: Cece Goodwin CM met again with patient and he would like home health with [facility]. He would also like me to check with the [place] to see if they have available inpatient rehab beds. I called Rosa M and she states Genna Jones is his rn case mgr. I called Genna at [phone] and left a message on her voice mail concerning this with my call back number. ENTERED DATE: 04/19/21 9:30 CT COMMENT TYPE: Discharge Planning REVIEWER: Cece Goodwin CM met with patient and to discuss decision on SNF. We also discussed home health option. They have not made a decision yet. I informed them that he is ready for discharge and they need a discharge disposition. I encouraged SNF for safety reasons. Patient asks me to return at a later time. He states his PCP is Dr. Rodriguez. States he has 2 BSC, walker, rollator walker, scooter, shower chair, grab bars in the shower. states he is able to get to his wheelchair into the car, but has difficulty with this because it's a [employer] and cannot get in and out well. They are current with [facility] . At this time patient and spouse are both unsure if he can go home with home health or needs a SNF. He asks again why he cannot go downstairs for rehab and I informed them that his insurance has denied inpatient rehab. CM will meet again with him this afternoon. ENTERED DATE: 04/17/21 11:32 CT COMMENT TYPE: Discharge Planning REVIEWER: Cece Goodwin Updated clinical faxed to [facility]. Amelia states they are awaiting auth. ENTERED DATE: 04/14/21 14:01 CT COMMENT TYPE: Discharge Planning REVIEWER: Yi Fajardo referral was sent to [facility] 04/13/21, checked on it today and Amelia stated that are pending auth DCP REVIEW SUMMARY ANTICIPATED D/C DATE: EXPECTED LOS : 0 CASE STATUS: DCP Initiated INITIAL REVIEW: 04/08/2021 INITIAL REVIEWER: Yi Fajardo FINAL DISCHARGE DISPOSITION: 06 : Discharged/Trans to Home Under Care of Organized Home Health Service in Anticipation of Skilled Care FINAL REVIEWER: Cece Goodwin FINAL REVIEW DATE: 04/25/2021 [facility] Focus Questions & Answers QUESTION: ANSWER : PATIENT: JACKY BARILLAS ENCOUNTER: [id number] MEDICAL RECORD#: [id number] ADMISSION DATE: 04/08/2021 DISCHARGE DATE: 04/22/2021 ATTENDING MD: LISSA HICKEY : AGE: 66 MARITAL STATUS: M DC PLAN ID: [id number] FACILITY: [facility] PRINTED ON: 04/25/21 14:10 CT All edits/amendments must be made on the electronic document DICTATION DATE: 04/25/211409 [employer] CLE[employer]ER: NICCI 04/25/211409 RPT#: [id number] DC DATE:04/22/21 STATUS: DIS IN [facility] [address] [place] [address] END OF REPORT
== END 2021-04-22 14:53 | disposition home health service (06) | DRG 280 ==
LOC: D.ER 06:09 → D.M2 08:14 → OBSVTIME 08:14 → D.M2 17:40
PROVIDERS: Emergency Medicine; Family Medicine; Internal Medicine Hematology & Oncology; ADMIT Family Medicine; ATTEND Family Medicine
DX: I13.0 Hypertensive heart and chronic kidney disease with heart failure and stage 1 through stage 4 chronic kidney disease, or unspecified chronic kidney disease (principal); I50.41 Acute combined systolic (congestive) and diastolic (congestive) heart failure; I21.A1 Myocardial infarction type 2; N17.0 Acute kidney failure with tubular necrosis; L03.116 Cellulitis of left lower limb; L03.115 Cellulitis of right lower limb; Z68.43 Body mass index [BMI] 50.0-59.9, adult; N18.4 Chronic kidney disease, stage 4 (severe); I27.82 Chronic pulmonary embolism; J81.1 Chronic pulmonary edema; D50.9 Iron deficiency anemia, unspecified; R01.1 Cardiac murmur, unspecified; J44.9 Chronic obstructive pulmonary disease, unspecified; J45.909 Unspecified asthma, uncomplicated; Z99.81 Dependence on supplemental oxygen; K21.9 Gastro-esophageal reflux disease without esophagitis; M19.90 Unspecified osteoarthritis, unspecified site; I25.10 Atherosclerotic heart disease of native coronary artery without angina pectoris; E78.5 Hyperlipidemia, unspecified; E11.22 Type 2 diabetes mellitus with diabetic chronic kidney disease; E66.01 Morbid (severe) obesity due to excess calories; F41.8 Other specified anxiety disorders; N40.0 Benign prostatic hyperplasia without lower urinary tract symptoms; M81.0 Age-related osteoporosis without current pathological fracture; G47.33 Obstructive sleep apnea (adult) (pediatric)